=== PATIENT | female | born 1940 | race Caucasian/White ===

== ENCOUNTER → 2016-04-21 | Outpatient (CLI) | payer OTHER ==
[~2016-04-21] MED LIST: ALBUAER INH; ASPI81TA28 PO; GUAI100L PO; MULT-506 PO; SIMV-151 PO; VALA1TAB31 PO
[2016-04-21 11:16] LABS: ESTIMATED AVERAGE GLUCOSE 114 mg/dl; HA1C FLAG Normal (Normal)
[2016-04-21 11:22] LABS: ALT/SGPT 20 U/L (12-78); BLOOD UREA NITROGEN 16 mg/dl (7-18); BUN/CREATININE RATIO 25.1 (10-20); CALCIUM 8.9 mg/dl (8.5-10.1); CARBON DIOXIDE 30 mmol/L (21-32); CHLORIDE 103 mmol/L (98-107); CHOLESTEROL 321 mg/dl (0-200); CREATININE 0.65 mg/dl (0.60-1.20); GLUCOSE 96 mg/dl (70-99); POTASSIUM 4.1 mmol/L (3.5-5.1); SODIUM 138 mmol/L (136-145); TRIGLYCERIDES 388 mg/dl (0-150); VERY LOW DENSITY LIPOPROT CALC 78 mg/dl
[2016-04-21 11:32] LABS: ALKALINE PHOSPHATASE 65 U/L (45-117); AST/SGOT 17 U/L (15-37); CHOLESTEROL/HDL RATIO 7.3; HDL CHOLESTEROL 44 mg/dl; LDL CHOLESTEROL CALCULATED 199 mg/dl
--- NOTE | 2016-04-26 10:36 | CODING QUERY MEDICAL NECESSITY ---
SUPPORTING DIAGNOSIS NEEDED A supporting diagnosis is required for the test/procedure performed on this patient in order for us to be reimbursed by the patient's insurance. Please provide a supporting diagnosis for the following test/procedure listed below next to the test name along with your signature. *If there is no additional diagnosis for this patient that would support the following test/procedure please document that below next to the test/procedure. Test(s)/Procedure(s) that require a supporting diagnosis: DOS 04/21 * Hba1c DIAGNOSIS: * TSH DIAGNOSIS: * Lipids DIAGNOSIS: Provider Signature: Date: Thank you Kath Ruiz Health Information Management Once completed, please kindly fax back to [phone] For questions please call [phone]
== END | disposition home or self-care (01) ==
LOC: C.LABBC 09:53
PROVIDERS: ATTEND Internal Medicine
DX: Z78.0 Asymptomatic menopausal state (principal); R73.03 Prediabetes; E78.5 Hyperlipidemia, unspecified

== ENCOUNTER → 2016-07-20 | Outpatient (CLI) | payer OTHER ==
[2016-07-20 13:55] LABS: CHOLESTEROL/HDL RATIO 4.8
== END | disposition home or self-care (01) ==
LOC: C.LABBC 10:27
PROVIDERS: ATTEND Internal Medicine
DX: E78.5 Hyperlipidemia, unspecified (principal)

== ENCOUNTER → 2016-09-25 | Outpatient (CLI) | payer OTHER | END | disposition home or self-care (01) | LOC: C.MAMM 15:37 | PROVIDERS: ATTEND Internal Medicine | DX: Z00.00 Encounter for general adult medical examination without abnormal findings (principal); M85.852 Other specified disorders of bone density and structure, left thigh ==

== ENCOUNTER → 2016-10-16 | Outpatient (CLI) | payer OTHER ==
--- NOTE | 2016-10-17 16:02 | MAMMOGRAPHY REPORT ---
BILATERAL DIGITAL SCREENING MAMMOGRAM WITH CAD: 10/16/2016 CLINICAL HISTORY: Routine screening. Patient has no complaints. TECHNIQUE: Bilateral CC and MLO views were obtained. Current study was also evaluated with a Compute r Aided Detection (CAD) system. COMPARISON: Comparison is made to exams dated: 11/25/2014 mammogram, 08/19/2013 mammogram, 08/07/2012 m ammogram, 09/28/2010 mammogram, 07/18/2009 mammogram - [facility], and 08/19/2006. BREAST COMPOSITION: The tissue of both breasts is heterogeneously dense, which may obscure small mas ses. FINDINGS: There are a few benign-appearing punctate calcifications in the left breast. No suspicious mass, architectural distortion or cluster of suspicious microcalcifications is seen. IMPRESSION: ACR BI-RADS CATEGORY 2: BENIGN There is no mammographic evidence of malignancy. A 1 year screening mammogram is recommended. The pa tient will receive written notification of the results. Approximately 10% of breast cancers are not detected with mammography. A negative mammographic report should not delay biopsy if a clinically suggestive mass is present. Kami Diaz M.D. ay/:10/16/2016 16:27:06 Machine Maintenance Mechanic: Vanessa CALZADA(R)(M), [facility] letter sent: Normal 1/2 BI-RADS Code: ACR BI-RADS Category 2: Benign
== END | disposition home or self-care (01) ==
LOC: C.MAMM 13:17
PROVIDERS: ATTEND Internal Medicine
DX: Z12.31 Encounter for screening mammogram for malignant neoplasm of breast (principal)

== ENCOUNTER → 2016-12-13 | Outpatient (CLI) | payer OTHER ==
--- NOTE | 2016-12-13 11:41 | DIAGNOSTIC IMAGING REPORT ---
ULTRASOUND EXAM AAA SCREEN CLINICAL HISTORY: 76 years-old Female with Z13.6 Screening for AAA (abdominal aortic aneurysm)[id number]. COMPARISON: None available TECHNIQUE: Multiple real time sonographic images of the abdominal aorta were obtained assessing aranda-scale appearance as well as color. Doppler and spectral waveform analysis. FINDINGS: MEASUREMENTS: Proximal Aorta: 1.8 x 1.8 cm Mid Aorta: 1.3 x 1.3 cm Distal Aorta: 1.4 x 1.47 m Right Common Iliac Artery: 0.7 cm Left Common Iliac Artery: 0.7 cm Pulsatile color Doppler flow and a normal spectral waveform are seen within the proximal aorta. Mild atherosclerotic plaquing of the abdominal aorta and iliac bifurcation. IMPRESSION: Mild atherosclerotic plaquing of the abdominal aorta and common iliac arteries without evidence of aneurysmal dilation. The above report was generated using voice recognition software. It may contain grammatical, syntax or spelling errors. Electronically signed by: Chato Marino M.D. 12/13/2016 11:39 AM Dictated Date/Time: 12/13/2016 11:37 AM
== END | disposition home or self-care (01) ==
LOC: C.ULTRBC 10:59
PROVIDERS: ATTEND Internal Medicine
DX: Z13.6 Encounter for screening for cardiovascular disorders (principal)

== ENCOUNTER → 2017-10-03 | Outpatient (CLI) | payer OTHER ==
[2017-10-03 11:07] LABS: BASO % 0.9 %; BASO ABS # 0.07 K/uL (0-0.2); EOS % 4.2 %; EOS ABS # 0.34 K/uL (0-0.5); HEMOGLOBIN 12.9 g/dL (12.0-16.0); IG# 0.03 K/uL (0.00-0.02); LYMPH % 30.8 %; MEAN CELL VOLUME 91.6 fL (80-100); MEAN CORPUSCULAR HEMOGLOBIN 31.1 pg (25-34); MEAN CORPUSCULAR HGB CONC 33.9 g/dl (32-36); MEAN PLATELET VOLUME 9.4 fL (7.4-10.4); MONO % 8.3 %; MONO ABS # 0.67 K/uL (0.11-0.59); NEUT % 55.4 %; NEUT ABS # 4.51 K/uL (1.4-6.5); PLATELET COUNT 324 K/uL (130-400); RED CELL DISTRIBUTION WIDTH CV 13.3 % (11.5-14.5); RED CELL DISTRIBUTION WIDTH SD 44.8 fL (36.4-46.3); WHITE BLOOD COUNT 8.12 K/uL (4.8-10.8)
[2017-10-03 11:39] LABS: ALBUMIN 3.7 gm/dl (3.4-5.0); ALKALINE PHOSPHATASE 63 U/L (45-117); ALT/SGPT 26 U/L (12-78); AST/SGOT 21 U/L (15-37); BLOOD UREA NITROGEN 24 mg/dl (7-18); CARBON DIOXIDE 26 mmol/L (21-32); CREATININE 0.82 mg/dl (0.60-1.20); GLUCOSE 105 mg/dl (70-99); POTASSIUM 4.1 mmol/L (3.5-5.1); SODIUM 140 mmol/L (136-145); TOTAL PROTEIN 7.2 gm/dl (6.4-8.2)
[2017-10-03 11:42] LABS: HEMOGLOBIN A1C 5.9 % (4.5-5.6)
== END | disposition home or self-care (01) ==
LOC: C.LABBC 07:34
PROVIDERS: ATTEND Internal Medicine
DX: E78.5 Hyperlipidemia, unspecified (principal); Z00.00 Encounter for general adult medical examination without abnormal findings; Z90.49 Acquired absence of other specified parts of digestive tract; R73.03 Prediabetes

== ENCOUNTER 2022-07-07 17:07 | Inpatient (IN) ==
[2022-07-07] MEDS ORDERED: ONDANSETRON INJ 2 MG/ML 2 ML VIAL IV STA (17:20)
[2022-07-07] MEDS ORDERED: SODIUM CHLORIDE 0.9% 500 ML IV SCH (17:30)
[2022-07-07] MEDS ORDERED: SODIUM CHLORIDE 0.9% 1000ML 1,000 ML IV ONE (17:30)
[2022-07-07] MEDS ORDERED: KETOROLAC TROMETHAMINE 15 MG/ML VIAL IV STA (17:30)
--- NOTE | 2022-07-07 18:01 | Emergency Department Note ---
History of Present Illness General Chief complaint: Vomiting Stated complaint: VOMITING, DIAARHEA, DEHYDRATION Time Seen by Provider: 07/07/22 17:20 History of Present Illness Provider Complaint: + nausea, + vomiting, + diarrhea and + abdominal pain Onset (ago): day(s) 1 Description of Vomiting: + watery; no blood-streaked, no bloody or no coffee grounds Description of Diarrhea: no tarry, no blood-streaked or no bloody (bright red) Associated Abdominal Pain: Yes Location of pain: + epigastric Severity: moderate Maximum Pain Intensity: 7 Current Pain Intensity: 7 Quality: + stabbing, + aching, + sharp and + dull Pain Consistency: + constant Relieved By: + none Exacerbated By: + eating Context: + history of abdominal surgery; no foreign travel, no possible food poisoning, no recent antibiotic use, no recent surgery/procedure, no alcohol abuse, no trauma, no smoking or no marijuana use Associated symptoms: no chest pain, no cough, no fever/chills, no headaches, no rash or no dysuria Home Medications Medication Instructions Recorded Confirmed Type calcium carbonate 600 mg-vitamin 1 tab PO QAM 09/04/18 07/07/22 History D3 5 mcg (200 unit) tablet multivitamin (One-A-Day Essential 1 tab PO PM 09/04/18 07/07/22 History tablet) aspirin 81 mg tablet,delayed 81 mg PO QAM 03/24/19 07/07/22 History release (Aspir-) triamcinolone acetonide 0.1 % 1 applic topical BID PRN Itching 09/14/21 07/07/22 History topical cream levothyroxine 25 mcg tablet 25 mcg PO QAM #90 tabs 02/20/22 07/07/22 Rx rosuvastatin 10 mg tablet 10 mg PO HS #90 tabs 06/28/22 07/07/22 Rx gabapentin 100 mg capsule 100 mg PO DAILY 07/06/22 07/07/22 History Allergies Allergy/AdvReac Type Severity Reaction Status Date / Time Penicillins Allergy Severe FEET Verified 07/07/22 18:49 SWELLED HAD TO BE CARRIED shellfish derived Allergy Severe Gastrointestinal Unverified 07/07/22 18:49 Upset bacitracin Allergy Intermediate TOTAL BODY Verified 07/07/22 18:49 RASH/SWELLING benzocaine Allergy Intermediate Rash Verified 07/07/22 18:49 clindamycin Allergy Intermediate RASH Verified 07/07/22 18:49 cobalt Allergy Intermediate TOTAL BODY Verified 07/07/22 18:49 RASH/SWELLING ethylenediamine Allergy Intermediate Rash Verified 07/07/22 18:49 hydrocortisone Allergy Intermediate TOTAL BODY Verified 07/07/22 18:49 RASH/SWELLING methylprednisolone Allergy Intermediate Rash Verified 07/07/22 18:49 neomycin Allergy Intermediate TOTAL BODY Verified 07/07/22 18:49 RASH/SWELLING oxycodone Allergy Intermediate Rash Verified 07/07/22 18:49 prednisolone Allergy Intermediate Rash Verified 07/07/22 18:49 tixocortol Allergy Intermediate TOTAL BODY Verified 07/07/22 18:49 RASH/SWELLING formaldehyde Allergy Unknown Unknown Verified 07/07/22 18:49 metronidazole Allergy Unknown Gastrointestinal Verified 07/07/22 18:49 Upset ciprofloxacin [From Cipro] AdvReac Mild rash Verified 07/07/22 18:49 Past Med/Surg History Medical History Acute bronchitis resolved 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> then SBO> resolved Endometrial hyperplasia Endometrial thickening on ultrasound GERD (gastroesophageal reflux disease) Herpes zoster Hx of rotator cuff tear right Hyperlipidemia Hypothyroidism Pneumonia resolved Postmenopausal Postmenopausal bleeding Pre-diabetes Sinus bradycardia pt unaware > no cardiology Surgical History History of appendectomy History of delivery x2 History of cholecystectomy History of colonoscopy History of endometrial ablation History of hip replacement Right FREDDY (2007/[facility] post-operatively patient reports diffuse rash/itching on post-op day#3, suspected to be contact dermatitis from the bedsheets per discharge summary (given benadryl)- 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 Wilda Jaeger History of resection of small bowel History of tonsillectomy Family History Mother Depression Other Myocardial infarction Stroke Denies family history of Ovarian cancer Prostate cancer Diabetes Breast cancer Lung cancer Colorectal cancer Hypertension Social History Smoking Status: Never smoker Second Hand Exposure: No; Do You Dip or Chew Tobacco: No; Hx Alcohol Use: No Hx Substance Use: No Preferred Language: [place] Citizen Communication Ability: Effective Visual Impairment: Limited Hearing Ability: Normal Min[employer] Processing Labourer Required: No Beliefs That Will Affect Care: None marital status: Current Living Situation: Spouse current occupational status: employed current occupation: realtor How many Children do You have: 2 Feels Safe at Home: Yes Childhood Exposure to Second-Hand Smoke: Yes caffeine: Yes (drinks tea ) Dental Care, Regularly: Yes Physical Activity Frequency: 3-4 Times per Week Seatbelt Use: always Sunscreen Use: Yes (tries to ) Assistive Devices: Glasses Physical Exam Vital Signs: Vital Signs - 24 hr 07/07/22 17:11 07/07/22 17:28 07/07/22 17:55 Temperature 36.8 C Temperature Source Temporal Artery Sc an Pulse Rate 63 51 L Pulse Rate from Sp O2 Sensor Respiratory Rate 20 Respiratory Depth Normal Blood Pressure 163/71 H Blood Pressure Laura n 101 Pulse Oximetry 96 Oxygen Delivery Me thod Room Air Room Air Sepsis Recent Feve r Within 48 Hours No Sepsis New/Unexpla ined Change in Men asad Status N/A Sepsis Action Take n by Nursing No Action Required 07/07/22 18:00 07/07/22 19:44 07/07/22 20:00 Temperature Temperature Source Pulse Rate 62 54 L 56 L Pulse Rate from Sp O2 Sensor 52 L 55 L Respiratory Rate 19 23 23 Respiratory Depth Blood Pressure 176/72 H 145/77 H 151/58 H Blood Pressure Laura n 106 99 89 Pulse Oximetry 97 96 97 Oxygen Delivery Me thod Room Air Room Air Room Air Sepsis Recent Feve r Within 48 Hours Sepsis New/Unexpla ined Change in Men asad Status Sepsis Action Take n by Nursing Physical Exam: Physical Exam GENERAL: She is oriented to person, place, and time. She appears well-developed and well-nourished. HENT: Exam performed. -Head: Normocephalic and atraumatic. -Right Ear: External ear normal. No mastoid erythema -Left Ear: External ear normal. No mastoid erythema EYES: Conjunctivae and EOM are normal. Right eye exhibits no discharge. Left eye exhibits no discharge. No scleral icterus. NECK: Normal range of motion. Neck supple. No JVD present. No spinous process tenderness present. No tracheal deviation and normal range of motion present. CV: Normal rate, regular rhythm, normal heart sounds and intact distal pulses. There is no peripheral edema. Palpable radial pulses bue. PULM/CHEST: Effort normal and breath sounds normal. No respiratory distress. No stridor. She has no wheezes. She has no rales. ABD: The abdomen is soft. There is tenderness to palpation of the epigastric area. There is no rebound, no guarding. MUSC/SKEL: Normal range of motion. There is no peripheral edema, tenderness or deformity. LYMPH: No cervical adenopathy. NEURO: She is alert and oriented to person, place, and time. She has normal strength. No cranial nerve deficit or sensory deficit. Coordination and gait normal. GCS eye subscore is 4. GCS verbal subscore is 5. GCS motor subscore is 6. Cerebellar tests wnl. SKIN: Skin is warm and dry. She is not diaphoretic. PSYCH: She has a normal mood and affect. Behavior is normal. Judgment and thought content normal. Course Course 1719: The patient was evaluated in room A3. A complete history and physical exam was performed Cardiac monitoring: An order was placed for continuous cardiac monitoring. The monitor shows a rate of 60 with sinus rhythm interpreted by me 191: Vital signs stable. Labs show leukocytosis of 13.7 up from 11.07 yesterday. Creatinine today is 2.16 up from 0.72 yesterday. Patient treated with IV fluids. Given the patient's significant acute kidney injury, the patient had a CT scan done without contrast. CT without contrast showed diverticulitis with no abscess or perforation. Patient will be treated with Invanz given her extensive allergy list antibiotics. Patient will be [facility]ist team Dr. Pedraza's team notified. Administered Medications Ertapenem 1,000 mg/ Syringe 10 mls @ 2 mls/min IV Q24H CHANO Stop: 07/17/22 19:14 Last Admin: 07/07/22 19:45 Dose: 2 mls/min Documented By: LEILANI Discontinued Medications Sodium Chloride (Nss 1000ml) 1,000 mls @ 999 mls/hr IV .Q1H1M ONE Stop: 07/07/22 18:30 Last Infusion: 07/07/22 18:34 Dose: 0 mls/hr Documented By: Admin: 07/07/22 17:49 Dose: 999 mls/hr Documented By: REA Ketorolac Tromethamine (Ketorolac Tromethamine 15 Mg/Ml Vial) 15 mg IV NOW STA Stop: 07/07/22 17:31 Last Admin: 07/07/22 17:49 Dose: 15 mg Documented By: REA Ondansetron HCl (Ondansetron Inj 2 Mg/Ml 2 Ml Vial) 4 mg IV NOW STA Stop: 07/07/22 17:21 Last Admin: 07/07/22 17:49 Dose: 4 mg Documented By: REA Medical Decision Making Laboratory Data Attestation: I reviewed the patient's lab results. 07/07/22 17:48 07/07/22 17:48 Lab Results 07/07/22 07/07/22 07/07/22 Range/Units 17:48 17:48 17:48 WBC 13.73 H (4.8-10.8) K/ul RBC 4.62 (4.20-5.40) M/uL Hgb 13.9 (12.0-16.0) g/dl Hct 40.9 (37.0-47.0) % MCV 88.5 (80.0-100.0) fL MCH 30.1 (25.0-34.0) pg MCHC 34.0 (32.0-36.0) g/dL RDW Std Deviation 42.5 (36.4-46.3) fL RDW Coeff of Eduard 13.2 (11.5-14.5) % Plt Count 343 (130-400) K/uL MPV 8.9 L (9.4-12.4) fL Immature Gran % (Auto) 1.9 % Neut % (Auto) 72.9 % Lymph % (Auto) 12.1 % [place] % (Auto) 11.7 % Eos % (Auto) 0.9 % Baso % (Auto) 0.5 % Neut # (Auto) 10.01 H (1.40-6.50) K/uL Lymph # (Auto) 1.66 (1.2-3.4) K/uL [place] # (Auto) 1.61 H (0.11-0.59) K/uL Eos # (Auto) 0.12 (0-0.50) K/uL Baso # (Auto) 0.07 (0-0.2) K/uL Immature Gran # (Auto) 0.26 H (0.01-0.20) K/uL PT 10.6 (9.0-12.0) Seconds INR 1.0 (0.9-1.1) APTT 23.9 (21.0-31.0) Seconds PTT Ratio 0.8 Sodium 137 (136-145) mmol/L Potassium 3.9 (3.5-5.1) mmol/L Chloride 100 (98-107) mmol/L Carbon Dioxide 28 (21-32) mmol/L Anion Gap 9 (3-11) BUN 28 H (6-23) mg/dl Creatinine 2.16 H D (0.6-1.2) mg/dl Est Cr Clr Drug Dosing 15.0 ml/min Est GFR ( Amer) 24.5 ml/min Est GFR (Non-Af Amer) 21.1 ml/min BUN/Creatinine Ratio 13.0 (10-20) Glucose 90 (70-99(Fasting)) mg/dl Calcium 9.8 (8.6-10.3) mg/dl Magnesium 2.2 (1.7-2.4) mg/dl Total Bilirubin 0.7 (0.2-1.0) mg/dl Direct Bilirubin TNP AST 43 H (13-39) U/L ALT 32 (7-52) U/L Alkaline Phosphatase 83 (34-104) U/L Total Protein 8.0 (6.0-8.3) gm/dl Albumin 4.4 (3.4-5.0) gm/dl Lipase 54 (11-82) U/L Urine Color Urine Appearance (Clear) Urine pH (4.5-7.5) Ur Specific [place] (1.000-1.030) Urine Protein (Negative) Urine Glucose (UA) (Negative) Urine Ketones (Negative) Urine Blood (Negative) Urine Nitrite (Negative) Urine Bilirubin (Negative) Urine Urobilinogen (Negative) Ur Leukocyte Esterase (Negative) Urine WBC (Auto) (0-5) /hpf Urine RBC (Auto) (0-4) /hpf U Hyaline Cast (Auto) (0-5) /lpf U Epithel Cells (Auto) (0-5) /lpf Urine Bacteria (Auto) (Negative) Ur Renal Epithelial Cell (0-5) /lpf SARS-CoV-2, RNA, NAAT (NEGATIVE) 07/07/22 07/07/22 Range/Units 17:59 19:31 WBC (4.8-10.8) K/ul RBC (4.20-5.40) M/uL Hgb (12.0-16.0) g/dl Hct (37.0-47.0) % MCV (80.0-100.0) fL MCH (25.0-34.0) pg MCHC (32.0-36.0) g/dL RDW Std Deviation (36.4-46.3) fL RDW Coeff of Eduard (11.5-14.5) % Plt Count (130-400) K/uL MPV (9.4-12.4) fL Immature Gran % (Auto) % Neut % (Auto) % Lymph % (Auto) % [place] % (Auto) % Eos % (Auto) % Baso % (Auto) % Neut # (Auto) (1.40-6.50) K/uL Lymph # (Auto) (1.2-3.4) K/uL [place] # (Auto) (0.11-0.59) K/uL Eos # (Auto) (0-0.50) K/uL Baso # (Auto) (0-0.2) K/uL Immature Gran # (Auto) (0.01-0.20) K/uL PT (9.0-12.0) Seconds INR (0.9-1.1) APTT (21.0-31.0) Seconds PTT Ratio Sodium (136-145) mmol/L Potassium (3.5-5.1) mmol/L Chloride (98-107) mmol/L Carbon Dioxide (21-32) mmol/L Anion Gap (3-11) BUN (6-23) mg/dl Creatinine (0.6-1.2) mg/dl Est Cr Clr Drug Dosing ml/min Est GFR ( Amer) ml/min Est GFR (Non-Af Amer) ml/min BUN/Creatinine Ratio (10-20) Glucose (70-99(Fasting)) mg/dl Calcium (8.6-10.3) mg/dl Magnesium (1.7-2.4) mg/dl Total Bilirubin (0.2-1.0) mg/dl Direct Bilirubin AST (13-39) U/L ALT (7-52) U/L Alkaline Phosphatase (34-104) U/L Total Protein (6.0-8.3) gm/dl Albumin (3.4-5.0) gm/dl Lipase (11-82) U/L Urine Color Yellow Urine Appearance Cloudy A (Clear) Urine pH 6.5 (4.5-7.5) Ur Specific [place] 1.007 (1.000-1.030) Urine Protein 3+ H (Negative) Urine Glucose (UA) Negative (Negative) Urine Ketones Negative (Negative) Urine Blood 2+ H (Negative) Urine Nitrite Negative (Negative) Urine Bilirubin Negative (Negative) Urine Urobilinogen Negative (Negative) Ur Leukocyte Esterase Trace H (Negative) Urine WBC (Auto) 10-30 H (0-5) /hpf Urine RBC (Auto) 0-4 (0-4) /hpf U Hyaline Cast (Auto) 5-10 H (0-5) /lpf U Epithel Cells (Auto) >30 H (0-5) /lpf Urine Bacteria (Auto) Negative (Negative) Ur Renal Epithelial Cell 0-5 (0-5) /lpf SARS-CoV-2, RNA, NAAT NEGATIVE (NEGATIVE) Imaging Data Radiologist's Impression: Abdomen/Pelvis CT 07/07/22 18:28 CT abd pelvis wo con CLINICAL HISTORY: epigastric pain TECHNIQUE: Helical axial images of the abdomen and pelvis were obtained. Automated dose lowering techniques and/or adjustment according to patient size were utilized for this exam. This exam was performed without intravenous contrast. CT DOSE: 754.16 mGy.cm COMPARISON: None available at the time of this dictation. FINDINGS: Lower chest: No acute abnormality. Liver: Hepatic steatosis is noted. Gallbladder and biliary tree: Patient is status post cholecystectomy. Physiologic prominence of the biliary ducts is noted. Pancreas: Unremarkable, no focal lesions. Spleen: Splenule is incidentally noted. Adrenals: Unremarkable. Kidneys and ureters: Unremarkable. Bladder: Unremarkable. Reproductive organs: Unremarkable. Bowel: Numerous diverticula are seen. There is fat stranding in the proximal sigmoid colon. Patient is status post partial colectomy. The appendix is sunil gically absent. Immediately small hiatal hernia. Lymph nodes Retroperitoneal: Unremarkable. Pelvic: Unremarkable. Mesenteric: Unremarkable. Peritoneum: Fat stranding is seen in the left lower quadrant. No pneumoperitoneum is seen. No fluid collections are seen to stress abscess. Vessels: Unremarkable. Abdominal wall: Bilateral fat-containing inguinal hernias are seen. An infraumbilical fat-containing hernia is seen. Bones: Right hip total arthroplasty is seen. Degenerative changes are seen in the spine. IMPRESSION: 1. Findings compatible with mild diverticulitis without abscess or perforation. 2. Hepatic steatosis. 3. Additional findings as above. ACT 112: Negative or not required by law. Electronically signed by: Dashawn Teran M.D. 07/07/2022 7:03 PM ECG Data Attestation: I personally reviewed and interpreted this ECG as follows: Indication: abdominal pain Rate (beats per minute): 55 Rhythm: normal sinus Findings: no ST depression, no ST elevation or no prolonged QT MDM Narrative 1720: The patient was evaluated in room A3. A complete history and physical exam was performed Cardiac monitoring: An order was placed for continuous cardiac monitoring. The monitor shows a rate of 60 with sinus rhythm interpreted by me 1915: Vital signs stable. Labs show leukocytosis of 13.7 up from 11.07 yesterday. Creatinine today is 2.16 up from 0.72 yesterday. Patient treated with IV fluids. Given the patient's significant acute kidney injury, the patient had a CT scan done without contrast. CT without contrast showed diverticulitis with no abscess or perforation. Patient will be treated with Invanz given her extensive allergy list antibiotics. Patient will be admitted to the [facility] hospitalist team Dr. Pedraza's team notified. Impression & Plan Diverticulitis, THA (acute kidney injury) Discharge Plan Visit Data Chief Complaint: Vomiting Stated Complaint: VOMITING, DIAARHEA, DEHYDRATION ED Provider: Keegan Persaud Discharge Problem: Diverticulitis, THA (acute kidney injury) Patient Disposition: Admitted As Inpatient Forms Stand Alone Forms: My [facility] Prescriptions Prescriptions: No Action levothyroxine 25 mcg tablet 25 mcg PO QAM Qty: 90 2RF rosuvastatin 10 mg tablet 10 mg PO HS Qty: 90 3RF gabapentin 100 mg capsule 100 mg PO DAILY calcium carbonate-vitamin D3 600 mg(1,500mg) -200 unit tablet 1 tab PO QAM multivitamin [One-A-Day Essential] tablet 1 tab PO PM triamcinolone acetonide 0.1 % cream 1 applic topical BID PRN (Reason: Itching) aspirin [Aspir-81] 81 mg Tablet,Delayed Release (Dr/Ec) 81 mg PO QAM Referrals Referrals: Jesse Hood CRNP [Primary Care Provider] -
[2022-07-07 18:03] LABS: Basophils # (auto) 0.07 K/uL (0-0.2); Basophils % (auto) 0.5 %; Eosinophils # (auto) 0.12 K/uL (0-0.50); Eosinophils % (auto) 0.9 %; Hematocrit (blood only) 40.9 % (37.0-47.0); Hemoglobin 13.9 g/dl (12.0-16.0); Immature Granulocytes # (auto) 0.26 K/uL (0.01-0.20); Immature Granulocytes % (auto) 1.9 %; Lymphocytes # (auto) 1.66 K/uL (1.2-3.4); Lymphocytes % (auto) 12.1 %; Mean Corpuscular Hemoglobin 30.1 pg (25.0-34.0); Mean Corpuscular Volume 88.5 fL (80.0-100.0); Mean Platelet Volume 8.9 fL (9.4-12.4); Monocytes # (auto) 1.61 K/uL (0.11-0.59); Monocytes % (auto) 11.7 %; Neutrophils # (auto) 10.01 K/uL (1.40-6.50); Neutrophils % (auto) 72.9 %; Platelet Count 343 K/uL (130-400); RDW Coefficient of Variation 13.2 % (11.5-14.5); RDW Standard Deviation 42.5 fL (36.4-46.3); Red Blood Count 4.62 M/uL (4.20-5.40); White Blood Count 13.73 K/ul (4.8-10.8)
[2022-07-07 18:06] LABS: Appearance Urine Cloudy (Clear); Bacteria Urine Automated Negative (Negative); Bilirubin Urine Negative (Negative); Blood Urine 2+ (Negative); Color Urine Yellow; Epithelial Cell Urine Auto >30 /lpf (0-5); Glucose Urine UA Negative (Negative); Ketones Urine Negative (Negative); Leukocyte Esterase Urine Trace (Negative); Nitrite Urine Negative (Negative); Protein Urine 3+ (Negative); RBC Urine Automated 0-4 /hpf (0-4); Specific Gravity Urine 1.007 (1.000-1.030); Urobilinogen Urine Negative (Negative); pH Urine 6.5 (4.5-7.5)
[2022-07-07 18:26] LABS: Alanine Aminotransferase 32 U/L (7-52); Albumin Level 4.4 gm/dl (3.4-5.0); Alkaline Phosphatase 83 U/L (34-104); Anion Gap 9 (3-11); Aspartate Aminotransferase 43 U/L (13-39); Bilirubin,Total 0.7 mg/dl (0.2-1.0); Blood Urea Nitrogen 28 mg/dl (6-23); Calcium 9.8 mg/dl (8.6-10.3); Carbon Dioxide 28 mmol/L (21-32); Chloride 100 mmol/L (98-107); Est GFR (African American) 24.5 ml/min; Est GFR (Non-African American) 21.1 ml/min; Glucose 90 mg/dl (70-99(Fasting)); Lipase 54 U/L (11-82); Magnesium 2.2 mg/dl (1.7-2.4); Potassium 3.9 mmol/L (3.5-5.1); Sodium 137 mmol/L (136-145)
[2022-07-07 18:27] LABS: Renal Epithelial Cells Urine 0-5 /lpf (0-5)
[2022-07-07 18:28] LABS: Partial Thromboplastin Ratio 0.8; Partial Thromboplastin Time 23.9 Seconds (21.0-31.0); Prothrombin Time 10.6 Seconds (9.0-12.0)
--- NOTE | 2022-07-07 19:05 | CT Scan Report ---
CT abd pelvis wo con CLINICAL HISTORY: epigastric pain TECHNIQUE: Helical axial images of the abdomen and pelvis were obtained. Automated dose lowering tech niques and/or adjustment according to patient size were utilized for this exam. This exam was perfor med without intravenous contrast. CT DOSE: 754.16 mGy.cm COMPARISON: None available at the time of this dictation. FINDINGS: Lower chest: No acute abnormality. Liver: Hepatic steatosis is noted. Gallbladder and biliary tree: Patient is status post cholecystectomy. Physiologic prominence of the b iliary ducts is noted. Pancreas: Unremarkable, no focal lesions. Spleen: Splenule is incidentally noted. Adrenals: Unremarkable. Kidneys and ureters: Unremarkable. Bladder: Unremarkable. Reproductive organs: Unremarkable. Bowel: Numerous diverticula are seen. There is fat stranding in the proximal sigmoid colon. Patient i s status post partial colectomy. The appendix is surgically absent. Immediately small hiatal hernia. Lymph nodes Retroperitoneal: Unremarkable. Pelvic: Unremarkable. Mesenteric: Unremarkable. Peritoneum: Fat stranding is seen in the left lower quadrant. No pneumoperitoneum is seen. No fluid c ollections are seen to stress abscess. Vessels: Unremarkable. Abdominal wall: Bilateral fat-containing inguinal hernias are seen. An infraumbilical fat-containing hernia is seen. Bones: Right hip total arthroplasty is seen. Degenerative changes are seen in the spine. IMPRESSION: 1. Findings compatible with mild diverticulitis without abscess or perforation. 2. Hepatic steatosis. 3. Additional findings as above. ACT 112: Negative or not required by law. Electronically signed by: Dashawn Teran M.D. 07/07/2022 7:03 PM
[2022-07-07] MEDS ORDERED: ERTAPENEM SODIUM 1,000 MG in SYRINGE 0 ML IV SCH (19:15)
--- NOTE | 2022-07-07 20:19 | History & Physical Report ---
Date of Service July 07, 2022 Assessment & Plan (1) Salmonella food poisoning: (2) Salmonella gastroenteritis: (3) Diverticulitis: (4) THA (acute kidney injury): (5) Anxiety: (6) GERD (gastroesophageal reflux disease): (7) Hyperlipidemia: (8) Hypothyroidism: Plan Salmonella food poisoning/gastroenteritis- Due to patient's age, she is at increased risk for complications of untreated Salmonella. She is allergic to penicillins, clindamycin, ciprofloxacin, metronidazole. We will continue ertapenem IV 5 mg every 24 hours Acute kidney injury- Creatinine 2.16 upon admission, with base 0.72 Patient's received 1500 mils of normal saline in ED, and will continue IV fluids at 100 mils per hour Repeat laboratories in a.m. Patient will otherwise be kept NPO, and hold medications for hypothyroidism, peripheral neuropathy and hyperlipidemia History of Present Illness Chief Complaint: The patient presents to the emergency department with the development of nausea, vomiting, diarrhea and generalized abdominal pain, with symptoms of diet dehydration, shortly after eating tacos and some form of peanut butter out of town on Saturday, 07/02 Primary Care Provider: JOSE L Hare The patient is a 81-year-old female with a past medical history including anxiety, endometrial hyperplasia, GERD, osteopenia of menopause, sinus bradycardia, prediabetes, hypothyroidism, hyperlipidemia and dermatitis. Patient reports the emergency department with symptoms as noted above. I suggested to her that her symptoms are classic for food poisoning, and stool PCR later on admission is positive for Salmonella. The patient did already receive ertapenem 1 g IV from the ED. Allergies Allergy/AdvReac Type Severity Reaction Status Date / Time Penicillins Allergy Severe FEET Verified 07/07/22 18:49 SWELLED HAD TO BE CARRIED shellfish derived Allergy Severe Gastrointestinal Unverified 07/07/22 18:49 Upset bacitracin Allergy Intermediate TOTAL BODY Verified 07/07/22 18:49 RASH/SWELLING benzocaine Allergy Intermediate Rash Verified 07/07/22 18:49 clindamycin Allergy Intermediate RASH Verified 07/07/22 18:49 cobalt Allergy Intermediate TOTAL BODY Verified 07/07/22 18:49 RASH/SWELLING ethylenediamine Allergy Intermediate Rash Verified 07/07/22 18:49 hydrocortisone Allergy Intermediate TOTAL BODY Verified 07/07/22 18:49 RASH/SWELLING methylprednisolone Allergy Intermediate Rash Verified 07/07/22 18:49 neomycin Allergy Intermediate TOTAL BODY Verified 07/07/22 18:49 RASH/SWELLING oxycodone Allergy Intermediate Rash Verified 07/07/22 18:49 prednisolone Allergy Intermediate Rash Verified 07/07/22 18:49 tixocortol Allergy Intermediate TOTAL BODY Verified 07/07/22 18:49 RASH/SWELLING formaldehyde Allergy Unknown Unknown Verified 07/07/22 18:49 metronidazole Allergy Unknown Gastrointestinal Verified 07/07/22 18:49 Upset ciprofloxacin [From Cipro] AdvReac Mild rash Verified 07/07/22 18:49 Home Medications Medication Instructions Recorded Confirmed Type calcium carbonate 600 mg-vitamin 1 tab PO QAM 09/04/18 07/07/22 History D3 5 mcg (200 unit) tablet multivitamin (One-A-Day Essential 1 tab PO PM 09/04/18 07/07/22 History tablet) aspirin 81 mg tablet,delayed 81 mg PO QAM 03/24/19 07/07/22 History release (Aspir-) triamcinolone acetonide 0.1 % 1 applic topical BID PRN Itching 09/14/21 07/07/22 History topical cream levothyroxine 25 mcg tablet 25 mcg PO QAM #90 tabs 02/20/22 07/07/22 Rx rosuvastatin 10 mg tablet 10 mg PO HS #90 tabs 06/28/22 07/07/22 Rx gabapentin 100 mg capsule 100 mg PO DAILY 07/06/22 07/07/22 History Past Med/Surg History Medical History Acute bronchitis resolved 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> then SBO> resolved Endometrial hyperplasia Endometrial thickening on ultrasound GERD (gastroesophageal reflux disease) Herpes zoster Hx of rotator cuff tear right Hyperlipidemia Hypothyroidism Pneumonia resolved Postmenopausal Postmenopausal bleeding Pre-diabetes Sinus bradycardia pt unaware > no cardiology Surgical History History of appendectomy History of delivery x2 History of cholecystectomy History of colonoscopy History of endometrial ablation History of hip replacement Right FREDDY (2007/[facility]): post-operatively patient reports diffuse rash/itching on post-op day#3, suspected to be contact dermatitis from the bedsheets per discharge summary (given benadryl)- 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 History of resection of small bowel History of tonsillectomy Family History Mother Depression Other Myocardial infarction Stroke Denies family history of Ovarian cancer Prostate cancer Diabetes Breast cancer Lung cancer Colorectal cancer Hypertension Social History Smoking Status: Never smoker Second Hand Exposure: No; Do You Dip or Chew Tobacco: No; Hx Alcohol Use: No Hx Substance Use: No Preferred Language: Korean Communication Ability: Effective Visual Impairment: Limited Hearing Ability: Normal Voice Professor Required: No Beliefs That Will Affect Care: None marital status: Current Living Situation: Spouse current occupational status: employed current occupation: realtor How many Children do You have: 2 Feels Safe at Home: Yes Safety Concerns: Feels Safe At This Time Childhood Exposure to Second-Hand Smoke: Yes caffeine: Yes (drinks tea ) Dental Care, Regularly: Yes Physical Activity Frequency: 3-4 Times per Week Seatbelt Use: always Sunscreen Use: Yes (tries to ) Assistive Devices: None Review of Systems Review of Systems: The patient denies chest pain, palpitations, shortness of breath, dyspnea on exertion, cough, lower extremity swelling, sore throat, blood in urine or stool, dysuria, urinary frequency or urgency, lightheadedness, dizziness, headache, memory loss, loss of consciousness, rash, abnormal bruising or bleeding, imbalance, focal or generalized weakness, numbness or tingling in arms or legs, generalized arthralgias or myalgias, back or neck pain, or night sweats. The review of systems is otherwise negative other than for that already noted above, and at least 10 systems have been reviewed. Physical Exam Physical Exam: The patient is awake, alert and oriented 3, well developed and well nourished, normocephalic and atraumatic, lying in bed and in no acute distress. HEENT--PERRL, EOMI, mucous membranes and oropharynx dry. Neck--supple. No JVD. No bruits. Thyroid normal, trachea midline, no adenopathy. Heart--normal S1 and S2. No murmurs, rubs or gallops. Lungs--clear bilaterally, no respiratory distress, no accessory muscle use. Abdomen--generalized mild tenderness. Nondistended, no hernias or masses, no organomegaly. Extremities--no cyanosis or clubbing. No edema. Dermatologic--normal skin turgor, normal color, no abnormal lymph nodes, no rash. Neurologic--cranial nerves II through XII grossly intact. Rheumatologic--normal range of motion. Psychiatric--normal affect. Results & Data Results & Data Vital Signs (Past 12 Hours) Vital Signs Temp Pulse Resp BP Pulse Ox O2 Del Method 07/07/22 20:00 56 L 23 151/58 H 97 Room Air 07/07/22 19:44 54 L 23 145/77 H 96 Room Air 07/07/22 18:00 62 19 176/72 H 97 Room Air 07/07/22 17:55 51 L 07/07/22 17:28 Room Air 07/07/22 17:11 36.8 C 63 20 163/71 H 96 Room Air Laboratory Results Laboratory Results WBC 13.73 K/ul (4.8-10.8) H 07/07/22 17:48 RBC 4.62 M/uL (4.20-5.40) 07/07/22 17:48 Hgb 13.9 g/dl (12.0-16.0) 07/07/22 17:48 Hct 40.9 % (37.0-47.0) 07/07/22 17:48 MCV 88.5 fL (80.0-100.0) 07/07/22 17:48 MCH 30.1 pg (25.0-34.0) 07/07/22 17:48 MCHC 34.0 g/dL (32.0-36.0) 07/07/22 17:48 RDW Std Deviation 42.5 fL (36.4-46.3) 07/07/22 17:48 RDW Coeff of Eduard 13.2 % (11.5-14.5) 07/07/22 17:48 Plt Count 343 K/uL (130-400) 07/07/22 17:48 MPV 8.9 fL (9.4-12.4) L 07/07/22 17:48 Immature Gran % (Auto) 1.9 % 07/07/22 17:48 Neut % (Auto) 72.9 % 07/07/22 17:48 Lymph % (Auto) 12.1 % 07/07/22 17:48 [place] % (Auto) 11.7 % 07/07/22 17:48 Eos % (Auto) 0.9 % 07/07/22 17:48 Baso % (Auto) 0.5 % 07/07/22 17:48 Neut # (Auto) 10.01 K/uL (1.40-6.50) H 07/07/22 17:48 Lymph # (Auto) 1.66 K/uL (1.2-3.4) 07/07/22 17:48 [place] # (Auto) 1.61 K/uL (0.11-0.59) H 07/07/22 17:48 Eos # (Auto) 0.12 K/uL (0-0.50) 07/07/22 17:48 Baso # (Auto) 0.07 K/uL (0-0.2) 07/07/22 17:48 Immature Gran # (Auto) 0.26 K/uL (0.01-0.20) H 07/07/22 17:48 PT 10.6 Seconds (9.0-12.0) 07/07/22 17:48 INR 1.0 (0.9-1.1) 07/07/22 17:48 APTT 23.9 Seconds (21.0-31.0) 07/07/22 17:48 PTT Ratio 0.8 07/07/22 17:48 Sodium 137 mmol/L (136-145) 07/07/22 17:48 Potassium 3.9 mmol/L (3.5-5.1) 07/07/22 17:48 Chloride 100 mmol/L (98-107) 07/07/22 17:48 Carbon Dioxide 28 mmol/L (21-32) 07/07/22 17:48 Anion Gap 9 (3-11) 07/07/22 17:48 BUN 28 mg/dl (6-23) H 07/07/22 17:48 Creatinine 2.16 mg/dl (0.6-1.2) H D 07/07/22 17:48 Est Cr Clr Drug Dosing 15.0 ml/min 07/07/22 17:48 Est GFR ( Amer) 24.5 ml/min 07/07/22 17:48 Est GFR (Non-Af Amer) 21.1 ml/min 07/07/22 17:48 BUN/Creatinine Ratio 13.0 (10-20) 07/07/22 17:48 Glucose 90 mg/dl (70-99(Fasting)) 07/07/22 17:48 Calcium 9.8 mg/dl (8.6-10.3) 07/07/22 17:48 Magnesium 2.2 mg/dl (1.7-2.4) 07/07/22 17:48 Total Bilirubin 0.7 mg/dl (0.2-1.0) 07/07/22 17:48 Direct Bilirubin TNP 07/07/22 17:48 AST 43 U/L (13-39) H 07/07/22 17:48 ALT 32 U/L (7-52) 07/07/22 17:48 Alkaline Phosphatase 83 U/L (34-104) 07/07/22 17:48 Total Protein 8.0 gm/dl (6.0-8.3) 07/07/22 17:48 Albumin 4.4 gm/dl (3.4-5.0) 07/07/22 17:48 Lipase 54 U/L (11-82) 07/07/22 17:48 Urine Color Yellow 07/07/22 17:59 Urine Appearance Cloudy (Clear) A 07/07/22 17:59 Urine pH 6.5 (4.5-7.5) 07/07/22 17:59 Ur Specific [place] 1.007 (1.000-1.030) 07/07/22 17:59 Urine Protein 3+ (Negative) H 07/07/22 17:59 Urine Glucose (UA) Negative (Negative) 07/07/22 17:59 Urine Ketones Negative (Negative) 07/07/22 17:59 Urine Blood 2+ (Negative) H 07/07/22 17:59 Urine Nitrite Negative (Negative) 07/07/22 17:59 Urine Bilirubin Negative (Negative) 07/07/22 17:59 Urine Urobilinogen Negative (Negative) 07/07/22 17:59 Ur Leukocyte Esterase Trace (Negative) H 07/07/22 17:59 Urine WBC (Auto) 10-30 /hpf (0-5) H 07/07/22 17:59 Urine RBC (Auto) 0-4 /hpf (0-4) 07/07/22 17:59 U Hyaline Cast (Auto) 5-10 /lpf (0-5) H 07/07/22 17:59 U Epithel Cells (Auto) >30 /lpf (0-5) H 07/07/22 17:59 Urine Bacteria (Auto) Negative (Negative) 07/07/22 17:59 Ur Renal Epithelial Cell 0-5 /lpf (0-5) 07/07/22 17:59 Stl C. cayetanensis PCR Not Detected (NotDetected) 07/07/22 19:31 Stool Rotavirus A PCR Not Detected (NotDetected) 07/07/22 19:31 Stl Adenov F 40/41 PCR Not Detected (NotDetected) 07/07/22 19:31 Stool Astrovirus (PCR) Not Detected (NotDetected) 07/07/22 19: Stool Campylobacter PCR Not Detected (NotDetected) 07/07/22 19:31 Stl C. diff Tox B Gene Negative Cdiff Gene (Neg) 07/07/22 19: Stool Cryptosporidium PCR Not Detected (NotDetected) 07/07/22 19:31 Stl E.coli Shiga Tox PCR Not Detected (NotDetected) 07/07/22 19:31 Stl Enterotoxigenic E PCR Not Detected (NotDetected) 07/07/22 19:31 Stool EPEC (PCR) Not Detected (NotDetected) 07/07/22 19:31 Stool EAEC (PCR) Not Detected (NotDetected) 07/07/22 19:31 Stl E. histolytica PCR Not Detected (NotDetected) 07/07/22 19: Stool Giardia Lamblia PCR Not Detected (NotDetected) 07/07/22 19:31 Stool Salmonella PCR DETECTED (NotDetected) A* 07/07/22 19:31 Stool Sapovirus (PCR) Not Detected (NotDetected) 07/07/22 19: Stl P. shigelloides PCR Not Detected (NotDetected) 07/07/22 19:31 Stl Shigella/EIEC PCR Not Detected (NotDetected) 07/07/22 19: St Y.enterocolitica PCR Not Detected (NotDetected) 07/07/22 19: Stool Vibrio (PCR) Not Detected (NotDetected) 07/07/22 19:31 Stl Vibrio cholerae PCR Not Detected (NotDetected) 07/07/22 19:31 Stl Norovirus GI/GII PCR Not Detected (NotDetected) 07/07/22 19:31 SARS-CoV-2, RNA, NAAT NEGATIVE (NEGATIVE) 07/07/22 19:31 Impressions Abdomen/Pelvis CT 07/07/22 18:28 CT abd pelvis wo con CLINICAL HISTORY: epigastric pain TECHNIQUE: Helical axial images of the abdomen and pelvis were obtained. Automated dose lowering techniques and/or adjustment according to patient size were utilized for this exam. This exam was performed without intravenous contrast. CT DOSE: 754.16 mGy.cm COMPARISON: None available at the time of this dictation. FINDINGS: Lower chest: No acute abnormality. Liver: Hepatic steatosis is noted. Gallbladder and biliary tree: Patient is status post cholecystectomy. Physiologic prominence of the biliary ducts is noted. Pancreas: Unremarkable, no focal lesions. Spleen: Splenule is incidentally noted. Adrenals: Unremarkable. Kidneys and ureters: Unremarkable. Bladder: Unremarkable. Reproductive organs: Unremarkable. Bowel: Numerous diverticula are seen. There is fat stranding in the proximal sigmoid colon. Patient is status post partial colectomy. The appendix is surgically absent. Immediately small hiatal hernia. Lymph nodes Retroperitoneal: Unremarkable. Pelvic: Unremarkable. Mesenteric: Unremarkable. Peritoneum: Fat stranding is seen in the left lower quadrant. No pneumoperitoneum is seen. No fluid collections are seen to stress abscess. Vessels: Unremarkable. Abdominal wall: Bilateral fat-containing inguinal hernias are seen. An infraumbilical fat-containing hernia is seen. Bones: Right hip total arthroplasty is seen. Degenerative changes are seen in the spine. IMPRESSION: 1. Findings compatible with mild diverticulitis without abscess or perforation. 2. Hepatic steatosis. 3. Additional findings as above. ACT 112: Negative or not required by law. Electronically signed by: Dashawn Teran M.D. 07/07/2022 7:03 PM Code Status & VTE Plan Code Status Full code VTE Prophylaxis Plan VTE Prophylaxis will be ordered: Yes PG Care Time/CCT Total # of Minutes Spent Total Time Spent with Patient: Total time spent is greater than 50% in coordination of care (as documented) at patient's floor/unit and/or counseling patient: Coding Level of Care Code 89780 INT INP/OBS CARE 3/75MIN Diagnoses Salmonella food poisoning A02.9 Salmonella gastroenteritis A02.0 Diverticulitis K57.92 THA (acute kidney injury) N17.9 Anxiety F41.9 GERD (gastroesophageal reflux disease) K21.9 Hyperlipidemia E78.5 Hyperlipidemia type: unspecified Hypothyroidism E03.9 Hypothyroidism type: acquired (7) Hyperlipidemia Hyperlipidemia type: unspecified Qualified Code(s): E78.5 - Hyperlipidemia, unspecified (8) Hypothyroidism Hypothyroidism type: acquired Qualified Code(s): E03.9 - Hypothyroidism, unspecified
[2022-07-07 21:23] LABS: Adenovirus F 40/41 PCR Not Detected (NotDetected); Astrovirus PCR Not Detected (NotDetected); Campylobacter PCR Not Detected (NotDetected); Cryptosporidium PCR Not Detected (NotDetected); Cyclospora cayetanensis PCR Not Detected (NotDetected); Entamoeba histolytica PCR Not Detected (NotDetected); Enteroaggregative E.coli(EAEC) Not Detected (NotDetected); Enteropathogenic E.coli (EPEC) Not Detected (NotDetected); Enterotoxigenic E.coli (ETEC) Not Detected (NotDetected); Giardia lamblia PCR Not Detected (NotDetected); Norovirus GI/GII PCR Not Detected (NotDetected); Plesiomonas shigelloides PCR Not Detected (NotDetected); Rotavirus A PCR Not Detected (NotDetected); Sapovirus PCR Not Detected (NotDetected); Shiga-like Toxin E.coli (STEC) Not Detected (NotDetected); Shigella/Enteroinvasive E.coli Not Detected (NotDetected); Vibrio cholerae PCR Not Detected (NotDetected); Vibrio species PCR Not Detected (NotDetected); Yersinia enterocolitica PCR Not Detected (NotDetected)
[2022-07-07 21:25] LABS: Salmonella PCR DETECTED (NotDetected)
[2022-07-07] MEDS ORDERED: ONDANSETRON INJ 2 MG/ML 2 ML VIAL IV PRN (21:52)
[2022-07-07] MEDS ORDERED: SODIUM CHLORIDE 0.9% 1000ML 1,000 ML IV SCH (21:52)
[2022-07-07] MEDS: FAMOTIDINE 20 MG in SYRINGE 3 ML IV SCH (22:39)
[2022-07-08 06:37] LABS: Albumin Globulin Ratio 1.2 (0.9-2); Albumin Level 3.1 gm/dl (3.4-5.0); BUN Creatinine Ratio 10.6 (10-20); Bilirubin,Total 0.4 mg/dl (0.2-1.0); Calcium 8.3 mg/dl (8.6-10.3); Creatinine Clr Calc Pharmacy 11.7 ml/min; Est GFR (African American) 18.3 ml/min; Est GFR (Non-African American) 15.8 ml/min; Globulin 2.5 gm/dl (2.5-4.0); Magnesium 1.9 mg/dl (1.7-2.4); Potassium 3.8 mmol/L (3.5-5.1); Total Protein 5.6 gm/dl (6.0-8.3)
[2022-07-08 06:41] LABS: Basophils # (auto) 0.06 K/uL (0-0.2); Basophils % (auto) 0.5 %; Eosinophils # (auto) 0.15 K/uL (0-0.50); Eosinophils % (auto) 1.4 %; Hematocrit (blood only) 32.5 % (37.0-47.0); Hemoglobin 10.8 g/dl (12.0-16.0); Immature Granulocytes # (auto) 0.21 K/uL (0.01-0.20); Immature Granulocytes % (auto) 1.9 %; Lymphocytes # (auto) 1.47 K/uL (1.2-3.4); Lymphocytes % (auto) 13.4 %; Mean Corpuscular Hemoglobin 30.1 pg (25.0-34.0); Mean Corpuscular Hgb Conc 33.2 g/dL (32.0-36.0); Mean Corpuscular Volume 90.5 fL (80.0-100.0); Mean Platelet Volume 9.2 fL (9.4-12.4); Monocytes # (auto) 1.32 K/uL (0.11-0.59); Monocytes % (auto) 12.1 %; Neutrophils # (auto) 7.73 K/uL (1.40-6.50); Neutrophils % (auto) 70.7 %; Platelet Count 273 K/uL (130-400); RDW Coefficient of Variation 13.2 % (11.5-14.5); RDW Standard Deviation 43.5 fL (36.4-46.3); Red Blood Count 3.59 M/uL (4.20-5.40); White Blood Count 10.94 K/ul (4.8-10.8)
[2022-07-08] MEDS: FAMOTIDINE 20 MG in SYRINGE 3 ML IV SCH ×2 (07:57→20:16)
--- NOTE | 2022-07-08 07:59 | Hospitalist Progress Note ---
Date of Service July 08, 2022 Assessment & Plan (1) THA (acute kidney injury): Plan: Worsening THA, baseline creatinine 0.7 -> 2.1 -> 2.7 despite IVF overnight Urinalysis with 3+ protein, 2+ blood but no RBCs, no bacteria or nitrites CTAP w/ contrast without evidence of post-obstructive cause Differential is prerenal THA vs ATN vs AIN, do expect some component associated with dehydration, continue diverticulitis treatment below Nephrology consulted and appreciate recommendations: Recommend empiric methylprednisolone for AIN if kidney function does not start to improve in the next 24-48 hours Will need to discuss with Medical Staff Coordinator given patient has allergy listed on chart to methylpred (uses topical prescription steroid creams including triamcinolone without rash) (2) Diverticulitis: Plan: With several days of abdominal pain and diarrhea, recently put on Cipro by outside provider, however developed a rash CTAP with evidence of diverticulitis without evidence of abscess/perforation WBC count 13.73-> 10.8 today, continue Invanz at renal dosing 500 mg q24h, repeat CBC in AM Patient with a history of multiple medication intolerances/allergies, recommend continued follow-up with assistant professor of biology for allergy testing (3) Salmonella gastroenteritis: Plan: Noted on stool PCR while undergoing evaluation for diarrhea Supportive care with fluids (4) Salmonella food poisoning: Plan: see above (5) GERD (gastroesophageal reflux disease): Plan: History of on chart, however not on chronic therapy Due to epigastric pain will place on IV famotidine for now (6) Hyperlipidemia: Plan: Hold statin while NPO (7) Hypothyroidism: Plan: Hold levothyroxine while NPO (8) Anxiety: Plan: Patient with self-reported anxiety, her chronic gabapentin as helped her, continue this Ativan 0.5mg PO BID prn severe anxiety Recommended follow up with PCP regarding daily agents for anxiety and/or counseling services Plan Continued care with IV antibiotics for diverticulitis. Transition to PO Abx will be more challenging due to history of multiple antibiotic intolerances/allergies. Continue NSS at 100cc/hr, scheduled to stop tomorrow AM. Admission and Anticipated Discharge Date Admission Date: July 07, 2022 Subjective Patient without any acute events overnight. She reports that she is very anxious person at baseline, but feels even more anxious due to her medical condition at this time and has a lot of questions. She reports that her abdominal pain is better today than it was yesterday, and she does not report feeling nauseous. She denies any chest pain or shortness of breath. Review of Systems Review of Systems: All systems reviewed & are unremarkable except as noted in Subjective Physical Exam Constitutional: WD/WN, vitals as above Respiratory: normal respiratory effort, lungs clear to auscultation Cardiovascular: RRR, no murmur, no edema Gastrointestinal (Abdomen): normal bowel sounds, soft, nontender, no hepatosplenomegaly Skin: no rashes, warm and dry Psychiatric: A+Ox3, euthymic affect Results & Data Results & Data Vital Signs (Past 12 Hours) Vital Signs Temp Pulse Pulse Resp BP BP Pulse Ox 07/08/22 07:19 36.4 C L 54 L 16 123/54 L 95 07/07/22 22:11 36.7 C 16 165/66 H 96 07/07/22 21:52 36.7 C 16 165/66 H 96 07/07/22 21:00 66 19 140/50 L 93 07/07/22 20:00 56 L 23 151/58 H 97 O2 Del Method 07/08/22 07:19 Room Air 07/07/22 22:11 Room Air 07/07/22 21:52 Room Air 07/07/22 21:00 Room Air 07/07/22 20:00 Room Air PG Care Time/CCT Total # of Minutes Spent Total Time Spent with Patient: Total time spent is greater than 50% in coordination of care (as documented) at patient's floor/unit and/or counseling patient: Coding Level of Care Code 16701 SUB INP/OBS CARE 3/50MIN Diagnoses THA (acute kidney injury) N17.9 Diverticulitis K57.92 Salmonella gastroenteritis A02.0 Salmonella food poisoning A02.9 GERD (gastroesophageal reflux disease) K21.9 Hyperlipidemia E78.5 Hyperlipidemia type: unspecified Hypothyroidism E03.9 Hypothyroidism type: acquired Anxiety F41.9 (6) Hyperlipidemia Hyperlipidemia type: unspecified Qualified Code(s): E78.5 - Hyperlipidemia, unspecified (7) Hypothyroidism Hypothyroidism type: acquired Qualified Code(s): E03.9 - Hypothyroidism, unspecified
[2022-07-08] MEDS: SODIUM CHLORIDE 0.9% 1000ML 1,000 ML IV SCH ×2 (08:39→17:02)
[2022-07-08] MEDS: GABAPENTIN 100 MG CAP PO SCH (12:41)
--- NOTE | 2022-07-08 15:41 | Nephrology Consultation ---
Date of Consultation July 08, 2022 Assessment & Plan (1) THA (acute kidney injury): Non-oliguric THA. Baseline creatinine 0.7 mg/dL. Electrolytes normal. Volume status acceptable. No indication for C.O.D. CLERK at this time. DDx includes suspected ATN vs AIN. Urine studies support prerenal component associated with dehydration. Thankfully, GI symptoms are improving with treatment and Sinai is tolerating IVF well. She remains on IV NSS at 100 ml/hr. Medications are currently appropriately dosed for kidney function. If kidney function does not start to improve in the next 24-48 hours, I would consider starting empiric methylprednisolone for suspected AIN. Repeat metabolic profile tomorrow AM. Document strict I/O's. (2) Salmonella gastroenteritis: Remains on ertapenem. Multiple antibiotic allergies. Clinically improving. (3) Allergy to antibiotic: Follow up with Dr. Samaniego in the allergy clinic post discharge. History of Present Illness Reason for Consultation: worsening THA, ? ATN Requesting Physician: Ngoc Ashley DO Attending Physician: Ngoc Ashley DO History of Present Illness Mrs. Sinai Bell was seen and evaluated this afternoon with her (Raza) at the bedside. I discussed the recent history and plan of care with Dr. Grossman earlier today. Nephrology consultation requested for THA. Serum creatinine at baseline <1 mg/dL. There is no prior history of kidney disease. Sinai was admitted to [facility] yesterday with persistent nausea, vomiting, and diarrhea. She describes some generalized abdominal pain. She was found to be dehydrated from ongoing gastroenteritis. Evaluation notable for stool PCR +salmonella. Ertapenem started in the ER. GI symptoms started on July 02 and are now improving. She continues to report some persistent pain in her back in the lower thoracic area which started today. Medical history is notable for SYDNIE, endometrial hyperplasia, GERD, osteopenia, prediabetes, hypothyroidism, hyperlipidemia, dermatitis, and a history of partial colectomy. Serum creatinine was 2.1 mg/dL on admission and 2.7 mg/dL this morning. Sinai is non-oliguric. CT scan demonstrated the kidneys to be unobstructed. Urine analysis notable for 3+ protein, 2+ blood and microscopy demonstrating 10-30 WBC and hyaline casts. No RBCs or RBC casts. IV saline infusing at 100 ml/hr. Sinai denies fluid retention or edema. On May 12, she started treatment with ciprofloxacin and dicyclomine provided by her PCP. After 2 doses of the antibiotic, she developed a rash on her back. She stopped the medication. Sinai has a history of multiple drug allergies. She has experienced rash with penicillins and clindamycin in the past. She follows with Dr. Samaniego in the allergy clinic for a history of antibiotic allergies. She also reports taking some Advil, approximately 1-2 tabs every few days for pain. Allergies Allergy/AdvReac Type Severity Reaction Status Date / Time Penicillins Allergy Severe FEET Verified 07/07/22 18:49 SWELLED HAD TO BE CARRIED shellfish derived Allergy Severe Gastrointestinal Unverified 07/07/22 18:49 Upset bacitracin Allergy Intermediate TOTAL BODY Verified 07/07/22 18:49 RASH/SWELLING benzocaine Allergy Intermediate Rash Verified 07/07/22 18:49 clindamycin Allergy Intermediate RASH Verified 07/07/22 18:49 cobalt Allergy Intermediate TOTAL BODY Verified 07/07/22 18:49 RASH/SWELLING ethylenediamine Allergy Intermediate Rash Verified 07/07/22 18:49 hydrocortisone Allergy Intermediate TOTAL BODY Verified 07/07/22 18:49 RASH/SWELLING methylprednisolone Allergy Intermediate Rash Verified 07/07/22 18:49 neomycin Allergy Intermediate TOTAL BODY Verified 07/07/22 18:49 RASH/SWELLING oxycodone Allergy Intermediate Rash Verified 07/07/22 18:49 prednisolone Allergy Intermediate Rash Verified 07/07/22 18:49 tixocortol Allergy Intermediate TOTAL BODY Verified 07/07/22 18:49 RASH/SWELLING formaldehyde Allergy Unknown Unknown Verified 07/07/22 18:49 metronidazole Allergy Unknown Gastrointestinal Verified 07/07/22 18:49 Upset ciprofloxacin [From Cipro] AdvReac Mild rash Verified 07/07/22 18:49 Home Medications Medication Instructions Recorded Confirmed Type calcium carbonate 600 mg-vitamin 1 tab PO QAM 09/04/18 07/07/22 History D3 5 mcg (200 unit) tablet multivitamin (One-A-Day Essential 1 tab PO PM 09/04/18 07/07/22 History tablet) aspirin 81 mg tablet,delayed 81 mg PO QAM 03/24/19 07/07/22 History release (Aspir-) triamcinolone acetonide 0.1 % 1 applic topical BID PRN Itching 09/14/21 07/07/22 History topical cream levothyroxine 25 mcg tablet 25 mcg PO QAM #90 tabs 02/20/22 07/07/22 Rx rosuvastatin 10 mg tablet 10 mg PO HS #90 tabs 06/28/22 07/07/22 Rx gabapentin 100 mg capsule 100 mg PO DAILY 07/06/22 07/07/22 History Patient History Medical History Acute bronchitis resolved 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> then SBO> resolved Endometrial hyperplasia Endometrial thickening on ultrasound GERD (gastroesophageal reflux disease) Herpes zoster Hx of rotator cuff tear right Hyperlipidemia Hypothyroidism Pneumonia resolved Postmenopausal Postmenopausal bleeding Pre-diabetes Sinus bradycardia pt unaware > no cardiology Surgical History History of appendectomy History of delivery x2 History of cholecystectomy History of colonoscopy History of endometrial ablation History of hip replacement Right FREDDY (2007/[facility]): post-operatively patient reports diffuse rash/itching on post-op day#3, suspected to be contact dermatitis from the bedsheets per discharge summary (given benadryl)- 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 Wilda Jaeger History of resection of small bowel History of tonsillectomy Family History Mother Depression Other Myocardial infarction Stroke Denies family history of Ovarian cancer Prostate cancer Diabetes Breast cancer Lung cancer Colorectal cancer Hypertension Social History Smoking Status: Never smoker Second Hand Exposure: No; Do You Dip or Chew Tobacco: No; Hx Alcohol Use: No Hx Substance Use: No Preferred Language: Lithuanian Communication Ability: Effective Visual Impairment: Limited Hearing Ability: Normal Cleaner And Trimmer Required: No Beliefs That Will Affect Care: None marital status: Current Living Situation: Spouse current occupational status: employed current occupation: realtor How many Children do You have: 2 Feels Safe at Home: Yes Safety Concerns: Feels Safe At This Time Childhood Exposure to Second-Hand Smoke: Yes caffeine: Yes (drinks tea ) Dental Care, Regularly: Yes Physical Activity Frequency: 3-4 Times per Week Seatbelt Use: always Sunscreen Use: Yes (tries to ) Assistive Devices: None Review of Systems Review of Systems: All systems reviewed & are unremarkable except as noted in HPI & below Physical Exam Constitutional: well developed; no acute distress Eyes: no scleral abnormality and no corneal abnormality ENMT: Mouth: no oral mucosal abnormality and oral mucous membranes not dry Neck: normal visual inspection and trachea midline Respiratory: normal respiratory effort Auscultation: lungs clear to auscultation bilaterally Cardiovascular: Rate/Rhythm: regular rate Heart Sounds: normal S1 and normal S2 Extremities: + pedal edema and + varicosities Gastrointestinal (Abdomen): Inspection/Auscultation: abdomen normal to inspection and + abdomen distended Percussion/Palpation: abdomen soft; abdomen nontender Musculoskeletal: Extremities: no cyanosis and no clubbing Skin: normal turgor; no lesions Neurologic: Motor/Sensory: no tremor and no asterixis Psychiatric: Orientation: alert and oriented x 3 Results & Data Vital Signs (Past 12 Hours) Vital Signs Temp Pulse Resp BP Pulse Ox O2 Del Method 07/08/22 14:43 36.7 C 52 L 16 137/57 L 96 Room Air 07/08/22 07:19 36.4 C L 54 L 16 123/54 L 95 Room Air Laboratory Results Laboratory Results - last 24 hr 07/07/22 07/07/22 07/07/22 17:48 17:48 17:48 WBC 13.73 H RBC 4.62 Hgb 13.9 Hct 40.9 MCV 88.5 MCH 30.1 MCHC 34.0 RDW Std Deviation 42.5 RDW Coeff of Eduard 13.2 Plt Count 343 MPV 8.9 L Immature Gran % (Auto) 1.9 Neut % (Auto) 72.9 Lymph % (Auto) 12.1 [place] % (Auto) 11.7 Eos % (Auto) 0.9 Baso % (Auto) 0.5 Neut # (Auto) 10.01 H Lymph # (Auto) 1.66 [place] # (Auto) 1.61 H Eos # (Auto) 0.12 Baso # (Auto) 0.07 Immature Gran # (Auto) 0.26 H PT 10.6 INR 1.0 APTT 23.9 PTT Ratio 0.8 Sodium 137 Potassium 3.9 Chloride 100 Carbon Dioxide 28 Anion Gap 9 BUN 28 H Creatinine 2.16 H D Est Cr Clr Drug Dosing 15.0 Est GFR ( Amer) 24.5 Est GFR (Non-Af Amer) 21.1 BUN/Creatinine Ratio 13.0 Glucose 90 Calcium 9.8 Magnesium 2.2 Total Bilirubin 0.7 Direct Bilirubin TNP AST 43 H ALT 32 Alkaline Phosphatase 83 Total Protein 8.0 Albumin 4.4 Globulin Albumin/Globulin Ratio Lipase 54 Urine Color Urine Appearance Urine pH Ur Specific [place] Urine Protein Urine Glucose (UA) Urine Ketones Urine Blood Urine Nitrite Urine Bilirubin Urine Urobilinogen Ur Leukocyte Esterase Urine WBC (Auto) Urine RBC (Auto) U Hyaline Cast (Auto) U Epithel Cells (Auto) Urine Bacteria (Auto) Ur Renal Epithelial Cell Ur Random Sodium Stl C. cayetanensis PCR Stool Rotavirus A PCR Stl Adenov F PCR Stool Astrovirus (PCR) Stool Campylobacter PCR Stl C. diff Tox B Gene Stool Cryptosporidium PCR Stl E.coli Shiga Tox PCR Stl Enterotoxigenic E PCR Stool EPEC (PCR) Stool EAEC (PCR) Stl E. histolytica PCR Stool Giardia Lamblia PCR Stool Salmonella PCR Stool Sapovirus (PCR) Stl P. shigelloides PCR Stl Shigella/EIEC PCR St Y.enterocolitica PCR Stool Vibrio (PCR) Stl Vibrio cholerae PCR Stl Norovirus GI/GII PCR SARS-CoV-2, RNA, NAAT 07/07/22 07/07/22 07/07/22 17:59 19:31 19:31 WBC RBC Hgb Hct MCV MCH MCHC RDW Std Deviation RDW Coeff of Eduard Plt Count MPV Immature Gran % (Auto) Neut % (Auto) Lymph % (Auto) [place] % (Auto) Eos % (Auto) Baso % (Auto) Neut # (Auto) Lymph # (Auto) [place] # (Auto) Eos # (Auto) Baso # (Auto) Immature Gran # (Auto) PT INR APTT PTT Ratio Sodium Potassium Chloride Carbon Dioxide Anion Gap BUN Creatinine Est Cr Clr Drug Dosing Est GFR ( Amer) Est GFR (Non-Af Amer) BUN/Creatinine Ratio Glucose Calcium Magnesium Total Bilirubin Direct Bilirubin AST ALT Alkaline Phosphatase Total Protein Albumin Globulin Albumin/Globulin Ratio Lipase Urine Color Yellow Urine Appearance Cloudy A Urine pH 6.5 Ur Specific [place] 1.007 Urine Protein 3+ H Urine Glucose (UA) Negative Urine Ketones Negative Urine Blood 2+ H Urine Nitrite Negative Urine Bilirubin Negative Urine Urobilinogen Negative Ur Leukocyte Esterase Trace H Urine WBC (Auto) 10-30 H Urine RBC (Auto) 0-4 U Hyaline Cast (Auto) 5-10 H U Epithel Cells (Auto) >30 H Urine Bacteria (Auto) Negative Ur Renal Epithelial Cell 0-5 Ur Random Sodium Stl C. cayetanensis PCR Not Detected Stool Rotavirus A PCR Not Detected Stl Adenov F 40/41 PCR Not Detected Stool Astrovirus (PCR) Not Detected Stool Campylobacter PCR Not Detected Stl C. diff Tox B Gene Negative Cdiff Gene Stool Cryptosporidium PCR Not Detected Stl E.coli Shiga Tox PCR Not Detected Stl Enterotoxigenic E PCR Not Detected Stool EPEC (PCR) Not Detected Stool EAEC (PCR) Not Detected Stl E. histolytica PCR Not Detected Stool Giardia Lamblia PCR Not Detected Stool Salmonella PCR DETECTED A* Stool Sapovirus (PCR) Not Detected Stl P. shigelloides PCR Not Detected Stl Shigella/EIEC PCR Not Detected St Y.enterocolitica PCR Not Detected Stool Vibrio (PCR) Not Detected Stl Vibrio cholerae PCR Not Detected Stl Norovirus GI/GII PCR Not Detected SARS-CoV-2, RNA, NAAT 07/07/22 07/08/22 07/08/22 19:31 05:31 05:31 WBC 10.94 H RBC 3.59 L Hgb 10.8 L D Hct 32.5 L MCV 90.5 MCH 30.1 MCHC 33.2 RDW Std Deviation 43.5 RDW Coeff of Eduard 13.2 Plt Count 273 MPV 9.2 L Immature Gran % (Auto) 1.9 Neut % (Auto) 70.7 Lymph % (Auto) 13.4 [place] % (Auto) 12.1 Eos % (Auto) 1.4 Baso % (Auto) 0.5 Neut # (Auto) 7.73 H Lymph # (Auto) 1.47 [place] # (Auto) 1.32 H Eos # (Auto) 0.15 Baso # (Auto) 0.06 Immature Gran # (Auto) 0.21 H PT INR APTT PTT Ratio Sodium 141 Potassium 3.8 Chloride 109 H Carbon Dioxide 27 Anion Gap 5 BUN 29 H Creatinine 2.74 H D Est Cr Clr Drug Dosing 11.7 Est GFR ( Amer) 18.3 Est GFR (Non-Af Amer) 15.8 BUN/Creatinine Ratio 10.6 Glucose 94 Calcium 8.3 L Magnesium 1.9 Total Bilirubin 0.4 Direct Bilirubin AST 26 ALT 19 Alkaline Phosphatase 50 Total Protein 5.6 L D Albumin 3.1 L Globulin 2.5 Albumin/Globulin Ratio 1.2 Lipase Urine Color Urine Appearance Urine pH Ur Specific [place] Urine Protein Urine Glucose (UA) Urine Ketones Urine Blood Urine Nitrite Urine Bilirubin Urine Urobilinogen Ur Leukocyte Esterase Urine WBC (Auto) Urine RBC (Auto) U Hyaline Cast (Auto) U Epithel Cells (Auto) Urine Bacteria (Auto) Ur Renal Epithelial Cell Ur Random Sodium Stl C. cayetanensis PCR Stool Rotavirus A PCR Stl Adenov F PCR Stool Astrovirus (PCR) Stool Campylobacter PCR Stl C. diff Tox B Gene Stool Cryptosporidium PCR Stl E.coli Shiga Tox PCR Stl Enterotoxigenic E PCR Stool EPEC (PCR) Stool EAEC (PCR) Stl E. histolytica PCR Stool Giardia Lamblia PCR Stool Salmonella PCR Stool Sapovirus (PCR) Stl P. shigelloides PCR Stl Shigella/EIEC PCR St Y.enterocolitica PCR Stool Vibrio (PCR) Stl Vibrio cholerae PCR Stl Norovirus GI/GII PCR SARS-CoV-2, RNA, NAAT NEGATIVE 07/08/22 12:10 WBC RBC Hgb Hct MCV MCH MCHC RDW Std Deviation RDW Coeff of Eduard Plt Count MPV Immature Gran % (Auto) Neut % (Auto) Lymph % (Auto) [place] % (Auto) Eos % (Auto) Baso % (Auto) Neut # (Auto) Lymph # (Auto) [place] # (Auto) Eos # (Auto) Baso # (Auto) Immature Gran # (Auto) PT INR APTT PTT Ratio Sodium Potassium Chloride Carbon Dioxide Anion Gap BUN Creatinine Est Cr Clr Drug Dosing Est GFR ( Amer) Est GFR (Non-Af Amer) BUN/Creatinine Ratio Glucose Calcium Magnesium Total Bilirubin Direct Bilirubin AST ALT Alkaline Phosphatase Total Protein Albumin Globulin Albumin/Globulin Ratio Lipase Urine Color Urine Appearance Urine pH Ur Specific [place] Urine Protein Urine Glucose (UA) Urine Ketones Urine Blood Urine Nitrite Urine Bilirubin Urine Urobilinogen Ur Leukocyte Esterase Urine WBC (Auto) Urine RBC (Auto) U Hyaline Cast (Auto) U Epithel Cells (Auto) Urine Bacteria (Auto) Ur Renal Epithelial Cell Ur Random Sodium 29 Stl C. cayetanensis PCR Stool Rotavirus A PCR Stl Adenov PCR Stool Astrovirus (PCR) Stool Campylobacter PCR Stl C. diff Tox B Gene Stool Cryptosporidium PCR Stl E.coli Shiga Tox PCR Stl Enterotoxigenic E PCR Stool EPEC (PCR) Stool EAEC (PCR) Stl E. histolytica PCR Stool Giardia Lamblia PCR Stool Salmonella PCR Stool Sapovirus (PCR) Stl P. shigelloides PCR Stl Shigella/EIEC PCR St Y.enterocolitica PCR Stool Vibrio (PCR) Stl Vibrio cholerae PCR Stl Norovirus GI/GII PCR SARS-CoV-2, RNA, NAAT Diagnostic Findings CT abd pelvis wo con Lower chest: No acute abnormality. Liver: Hepatic steatosis is noted. Gallbladder and biliary tree: Patient is status post cholecystectomy. Physiologic prominence of the biliary ducts is noted. Pancreas: Unremarkable, no focal lesions. Spleen: Splenule is incidentally noted. Adrenals: Unremarkable. Kidneys and ureters: Unremarkable. Bladder: Unremarkable. Reproductive organs: Unremarkable. Bowel: Numerous diverticula are seen. There is fat stranding in the proximal sigmoid colon. Patient is status post partial colectomy. The appendix is surgically absent. Immediately small hiatal hernia. Lymph nodes Retroperitoneal: Unremarkable. Pelvic: Unremarkable. Mesenteric: Unremarkable. Peritoneum: Fat stranding is seen in the left lower quadrant. No pneumoperitoneum is seen. No fluid collections are seen to stress abscess. Vessels: Unremarkable. Abdominal wall: Bilateral fat-containing inguinal hernias are seen. An infraumbilical fat-containing hernia is seen. Bones: Right hip total arthroplasty is seen. Degenerative changes are seen in the spine. IMPRESSION: 1. Findings compatible with mild diverticulitis without abscess or perforation. 2. Hepatic steatosis. PG Care Time/CCT Total # of Minutes Spent Total Time Spent with Patient: Total time spent is greater than 50% in coordination of care (as documented) at patient's floor/unit and/or counseling patient: Coding Level of Care Code 39734 IN/OBS CONSULT LVL 4,60M Diagnoses THA (acute kidney injury) N17.9 Salmonella gastroenteritis A02.0 Allergy to antibiotic Z88.1
[2022-07-08] MEDS ORDERED: TRIAMCINOLONE ACET 0.1% CR 15 GM TUBE TOP PRN (17:02)
[2022-07-08] MEDS ORDERED: ERTAPENEM SODIUM 500 MG in SYRINGE 0 ML IV SCH (18:00)
[2022-07-08] MEDS: ROSUVASTATIN CALCIUM 10 MG TAB PO SCH (20:37)
--- NOTE | 2022-07-08 21:18 | Electrocardiogram Report ---
Test Reason : Blood Pressure : / mmHG Vent. Rate : 055 BPM Atrial Rate : 055 BPM P-R Int : 158 ms QRS Dur : 102 ms QT Int : 412 ms P-R-T Axes : 026 -41 036 degrees QTc Int : 394 ms Sinus bradycardia Left axis deviation Moderate voltage criteria for LVH, may be normal variant ( R in aVL , Hal product ) Anterior infarct , age undetermined Abnormal ECG When compared with ECG of 12-MAR-2019 13:16, No significant change was found Confirmed by Daniel Mario ([id number]) on 07/08/2022 9:18:18 PM Referred By: Leonel Antunez Confirmed By:Daniel Mario
[2022-07-09] MEDS: SODIUM CHLORIDE 0.9% 1000ML 1,000 ML IV SCH (02:28)
[2022-07-09] MEDS: LEVOTHYROXINE SODIUM 25 MCG TABLET PO SCH (05:35)
[2022-07-09 07:16] LABS: Hematocrit (blood only) 33.4 % (37.0-47.0); Mean Corpuscular Hgb Conc 32.9 g/dL (32.0-36.0); Mean Platelet Volume 9.5 fL (9.4-12.4); Platelet Count 274 K/uL (130-400); RDW Coefficient of Variation 13.6 % (11.5-14.5); RDW Standard Deviation 45.5 fL (36.4-46.3); Red Blood Count 3.67 M/uL (4.20-5.40)
[2022-07-09 07:26] LABS: Albumin Level 3.1 gm/dl (3.4-5.0); Calcium 8.1 mg/dl (8.6-10.3); Potassium 3.9 mmol/L (3.5-5.1)
[2022-07-09 07:32] LABS: BUN Creatinine Ratio 8.8 (10-20); Creatinine Clr Calc Pharmacy 9.1 ml/min; Est GFR (African American) 13.5 ml/min; Est GFR (Non-African American) 11.7 ml/min; Phosphorus 4.3 mg/dl (2.5-4.9)
[2022-07-09 07:44] LABS: Basophils # (auto) 0.08 K/uL (0-0.2); Basophils % (auto) 0.8 %; Eosinophils # (auto) 0.27 K/uL (0-0.50); Eosinophils % (auto) 2.6 %; Immature Granulocytes # (auto) 0.58 K/uL (0.01-0.20); Immature Granulocytes % (auto) 5.5 %; Lymphocytes # (auto) 2.02 K/uL (1.2-3.4); Lymphocytes % (auto) 19.2 %; Monocytes % (auto) 10.5 %; Neutrophils # (auto) 6.45 K/uL (1.40-6.50); Neutrophils % (auto) 61.4 %
[2022-07-09] MEDS: GABAPENTIN 100 MG CAP PO SCH ×2 (09:11→20:13)
[2022-07-09] MEDS: ASPIRIN 81 MG ECTAB PO SCH (09:11)
[2022-07-09] MEDS: FAMOTIDINE 20 MG in SYRINGE 3 ML IV SCH (09:14)
[2022-07-09] MEDS ORDERED: SODIUM CHLORIDE 0.9% 1000ML 1,000 ML IV SCH (09:30)
--- NOTE | 2022-07-09 10:51 | Nephrology Progress Note ---
Date of Service July 09, 2022 Assessment & Plan (1) THA (acute kidney injury): Plan: Non-oliguric THA. No renal recovery. Creatinine continues to rise. Baseline creatinine 0.7 mg/dL. Electrolytes normal. Volume status acceptable. No indication for GEOTHERMAL SYSTEM INSTALLER at this time. DDx includes suspected ATN vs AIN. Urine studies support prerenal component associated with dehydration. Sinai is tolerating IVF well. Stop NSS and start plasmalyte infusion this AM. Medications are currently appropriately dosed for kidney function. If kidney function does not start to improve in the next 24-48 hours, I would consider starting empiric methylprednisolone for suspected AIN. Repeat metabolic profile tomorrow this afternoon. Document strict I/O's. (2) Salmonella gastroenteritis: Plan: Remains on ertapenem. Multiple antibiotic allergies. Clinically improving. (3) Allergy to antibiotic: Plan: Follow up with Dr. Samaniego in the allergy clinic post discharge. Admission and Anticipated Discharge Date Admission Date: July 07, 2022 Subjective No acute events overnight. No complaints this AM. Loose bowel movements persist. No melena or hematochezia. Increased bowel activity but denies abdominal pain. No fevers or chills. Denies fluid retention or edema. Review of Systems Review of Systems: All systems reviewed & are unremarkable except as noted in HPI & below Physical Exam Constitutional: well developed; no acute distress Eyes: no scleral abnormality and no corneal abnormality ENMT: Mouth: no oral mucosal abnormality and oral mucous membranes not dry Neck: normal visual inspection and trachea midline Respiratory: normal respiratory effort Auscultation: lungs clear to aus cultation bilaterally Cardiovascular: Rate/Rhythm: regular rate Heart Sounds: normal S1 and normal S2 Extremities: no edema Gastrointestinal (Abdomen): Inspection/Auscultation: abdomen normal to inspection and + abdomen distended Percussion/Palpation: abdomen soft; abdomen nontender Musculoskeletal: Extremities: no cyanosis and no clubbing Skin: normal turgor; no lesions Neurologic: Motor/Sensory: no tremor and no asterixis Psychiatric: Orientation: alert and oriented x 3 Results & Data Vital Signs (Past 12 Hours) Vital Signs Temp Pulse Resp BP BP Pulse Ox O2 Del Method 07/09/22 07:29 Room Air 07/09/22 07:08 36.5 C 45 L 16 151/56 H 94 Room Air 07/08/22 22:51 36.5 C 50 L 16 137/71 95 Room Air Laboratory Results Laboratory Results - last 24 hr 07/08/22 07/09/22 07/09/22 12:10 06:01 06:02 WBC 10.50 RBC 3.67 L Hgb 11.0 L Hct 33.4 L MCV 91.0 MCH 30.0 MCHC 32.9 RDW Std Deviation 45.5 RDW Coeff of Eduard 13.6 Plt Count 274 MPV 9.5 Immature Gran % (Auto) 5.5 Neut % (Auto) 61.4 Lymph % (Auto) 19.2 Gem % (Auto) 10.5 Eos % (Auto) 2.6 Baso % (Auto) 0.8 Neut # (Auto) 6.45 Lymph # (Auto) 2.02 Gem # (Auto) 1.10 H Eos # (Auto) 0.27 Baso # (Auto) 0.08 Immature Gran # (Auto) 0.58 H Sodium 142 Potassium 3.9 Chloride 114 H Carbon Dioxide 20 L Anion Gap 8 BUN 31 H Creatinine 3.53 H D Est Cr Clr Drug Dosing 9.1 Est GFR ( Amer) 13.5 Est GFR (Non-Af Amer) 11.7 BUN/Creatinine Ratio 8.8 L Glucose 93 Calcium 8.1 L Phosphorus 4.3 Magnesium 2.0 Albumin 3.1 L Ur Random Sodium 29 PG Care Time/CCT Total # of Minutes Spent Total Time Spent with Patient: Total time spent is greater than 50% in coordination of care (as documented) at patient's floor/unit and/or counseling patient: Coding Level of Care Code 30613 SUB INP/OBS CARE 3/50MIN Diagnoses THA (acute kidney injury) N17.9 Salmonella gastroenteritis A02.0 Allergy to antibiotic Z88.1
[2022-07-09] MEDS: PLASMA-LYTE A 1,000 ML IV SCH ×2 (11:14→20:13)
[2022-07-09 11:37] LABS: Thyroid Stimulating Hormone 2.123 uIu/ml (0.300-4.500)
[2022-07-09 11:39] LABS: T4 Free Thyroxine 1.12 ng/dl (0.61-1.60)
--- NOTE | 2022-07-09 15:43 | Hospitalist Progress Note ---
Date of Service July 09, 2022 Assessment & Plan (1) THA (acute kidney injury): Plan: Creatinine has risen to 3.5. Appreciate nephrology consultation and recommendations. She is now on IV fluids at 150 MLS per hour. Random urine sodium is 29. Random urine creatinine is pending. CTAP w/ contrast without evidence of post-obstructive cause. Some concern whether CT contrast material has aggravated renal function. Nephrology may add parenteral steroids later today. (2) Diverticulitis: Plan: With several days of abdominal pain and diarrhea, recently put on Cipro by outside provider, however developed a rash. CTAP with evidence of diverticulitis without evidence of abscess/perforation. Ertapenem has been switched to intravenous Rocephin. Serial labs. (3) Salmonella gastroenteritis: Plan: Ertapenem has been switched to intravenous Rocephin. Frequency of stools has decreased (4) Salmonella food poisoning: Plan: Probably acquired from pork she recently consumed (5) GERD (gastroesophageal reflux disease): Plan: Currently on IV famotidine (6) Hyperlipidemia: Plan: Holding statin temporarily (7) Hypothyroidism: Plan: Stable. Continue thyroid replacement therapy (8) Anxiety: Plan: Treated with gabapentin. Stable. Plan Anticipate eventual discharge to home. Admission and Anticipated Discharge Date Admission Date: July 07, 2022 Subjective Alert and oriented. No distress. Creatinine continues to trend upward, now 3.5. IV fluids have been started and uptitrated. Appreciate nephrology assi stance. Ertapenem has been switched to Rocephin after discussion with pharmacy. Review of Systems Review of Systems: Constitutional-no fever or chills ENT-no blurred vision, no double vision, no epistaxis, no sore throat Respiratory-no cough, no wheezing, no shortness of breath Cardiac-no palpitations, no chest pain, no syncope GI-no nausea, vomiting, melena, hematochezia. Frequency of diarrhea stool has decreased -no urinary retention, no urinary incontinence, no dysuria, no hematuria Musculoskeletal-no joint pain, no muscle tenderness Skin-no bruising, no rashes, no pruritus Neuro-no isolated weakness, no paresthesia, no weakness Psych-no depression, no anxiety Physical Exam Physical Exam: General-alert and oriented x3, no fevers, no chills HEENT-head atraumatic and normocephalic, pupils equal and reactive to light, extraocular muscles intact Neck-no lymphadenopathy or thyromegaly, trachea midline Chest-clear to auscultation percussion. No rales wheezing or rhonchi Cardiac-regular rate and rhythm, normal S1 and S2 Abdomen-normal bowel sounds, nontender, no hepatosplenomegaly Extremities-no cyanosis, clubbing, or edema Neuro-cranial nerves II through XII intact, motor and sensory function within normal limits, strength symmetrical , no focal deficits Psych-normal affect, normal mood Results & Data Results & Data Vital Signs (Past 12 Hours) Vital Signs Temp Pulse Resp BP Pulse Ox O2 Del Method 07/09/22 07:29 Room Air 07/09/22 07:08 36.5 C 45 L 16 151/56 H 94 Room Air Laboratory Results 07/09/22 06:01 PG Care Time/CCT Total # of Minutes Spent Total Time Spent with Patient: Total time spent is greater than 50% in coordination of care (as documented) at patient's floor/unit and/or counseling patient: Coding Level of Care Code 89416 SUB INP/OBS CARE 3/50MIN Diagnoses THA (acute kidney injury) N17.9 Diverticulitis K57.92 Salmonella gastroenteritis A02.0 Salmonella food poisoning A02.9 GERD (gastroesophageal reflux disease) K21.9 Hyperlipidemia E78.5 Hyperlipidemia type: unspecified Hypothyroidism E03.9 Hypothyroidism type: acquired Anxiety F41.9 (6) Hyperlipidemia Hyperlipidemia type: unspecified Qualified Code(s): E78.5 - Hyperlipidemia, unspecified (7) Hypothyroidism Hypothyroidism type: acquired Qualified Code(s): E03.9 - Hypothyroidism, unspecified
[2022-07-09] MEDS ORDERED: ONDANSETRON INJ 2 MG/ML 2 ML VIAL IV PRN (15:46)
[2022-07-09 15:49] LABS: BUN Creatinine Ratio 8.6 (10-20); Calcium 7.9 mg/dl (8.6-10.3); Creatinine Clr Calc Pharmacy 8.9 ml/min; Est GFR (African American) 13.2 ml/min; Est GFR (Non-African American) 11.4 ml/min; Potassium 3.7 mmol/L (3.5-5.1)
[2022-07-09] MEDS: cefTRIAXone SODIUM 2,000 MG in DEXTROSE 5% 50 ML IV SCH (16:23)
[2022-07-09] MEDS: ROSUVASTATIN CALCIUM 10 MG TAB PO SCH (20:12)
[2022-07-10] MEDS ORDERED: ALBUTEROL 0.083% NEBU SOLN 3 ML VIAL NEB ONE (02:14)
[2022-07-10] MEDS: LEVOTHYROXINE SODIUM 25 MCG TABLET PO SCH (05:53)
--- NOTE | 2022-07-10 07:20 | XRay Report ---
XR chest 1V portable HISTORY: 81 years-old Female sob acute shortness of breath COMPARISON: 07/27/2015, CT abdomen and pelvis 07/07/2022. TECHNIQUE: AP view of the chest FINDINGS: Cardiac silhouette is enlarged. Unchanged moderate hemidiaphragmatic elevation. Stable mediastinal pr ominence bilaterally. Interstitial coarsening with trace pleural effusions and mild bibasilar opaciti es. Degenerative changes of the shoulders and spine. IMPRESSION: 1. Cardiomegaly with pulmonary vascular congestion. 2. Trace pleural effusions with mild bibasilar opacities favoring atelectasis. ACT 112: Negative or not required by law. The above report was generated using voice recognition software. It may contain grammatical, syntax o r spelling errors. Electronically signed by: Garrett Marino M.D. 07/10/2022 7:19 AM
[2022-07-10] MEDS: ASPIRIN 81 MG ECTAB PO SCH (08:02)
[2022-07-10 08:42] LABS: Hematocrit (blood only) 30.5 % (37.0-47.0); Hemoglobin 10.1 g/dl (12.0-16.0); Mean Corpuscular Hemoglobin 30.1 pg (25.0-34.0); Mean Corpuscular Hgb Conc 33.1 g/dL (32.0-36.0); Mean Corpuscular Volume 90.8 fL (80.0-100.0); Mean Platelet Volume 9.2 fL (9.4-12.4); Platelet Count 272 K/uL (130-400); RDW Coefficient of Variation 13.2 % (11.5-14.5); RDW Standard Deviation 44.2 fL (36.4-46.3); Red Blood Count 3.36 M/uL (4.20-5.40); White Blood Count 11.38 K/ul (4.8-10.8)
[2022-07-10] MEDS: GABAPENTIN 100 MG CAP PO SCH ×2 (08:59→21:33)
[2022-07-10] MEDS ORDERED: PANTOprazole 40 MG TAB PO SCH (09:00)
[2022-07-10 09:02] LABS: Basophils % (auto) 0.9 %; Eosinophils # (auto) 0.26 K/uL (0-0.50); Eosinophils % (auto) 2.3 %; Immature Granulocytes # (auto) 0.71 K/uL (0.01-0.20); Immature Granulocytes % (auto) 6.2 %; Lymphocytes # (auto) 1.54 K/uL (1.2-3.4); Lymphocytes % (auto) 13.5 %; Monocytes # (auto) 1.11 K/uL (0.11-0.59); Monocytes % (auto) 9.8 %; Neutrophils # (auto) 7.66 K/uL (1.40-6.50); Neutrophils % (auto) 67.3 %; Polychromasia 1+
[2022-07-10 09:14] LABS: BUN Creatinine Ratio 7.5 (10-20); Calcium 8.2 mg/dl (8.6-10.3); Creatinine Clr Calc Pharmacy 8.3 ml/min; Est GFR (African American) 12.2 ml/min; Est GFR (Non-African American) 10.5 ml/min; Potassium 3.7 mmol/L (3.5-5.1)
[2022-07-10] MEDS ORDERED: methylPREDNISolone 500 MG in DEXTROSE 5% 250 ML IV ONE (10:15)
--- NOTE | 2022-07-10 12:48 | Nephrology Progress Note ---
Date of Service July 10, 2022 Assessment & Plan (1) THA (acute kidney injury): Plan: Non-oliguric THA. Creatinine continues to rise. Baseline creatinine 0.7 mg/dL. Electrolytes normal. Volume status acceptable. No indication for TIME STUDY ENGINEER at this time. DDx includes suspected ATN vs AIN. Urine studies support prerenal component associated with dehydration. Volume status now replete. IVF discontinued due to fluid retention. Will start empiric methylprednisolone 500 mg IV today. BID PPI provided. Defer kidney biopsy given no active urine sediment. Medications are currently appropriately dosed for kidney function. Repeat metabolic profile tomorrow this afternoon. Document strict I/O's. (2) Salmonella gastroenteritis: Plan: Clinically improved. Ertapenem converted to ceftriaxone. (3) Allergy to antibiotic: Plan: Avoid fluoroquinolones. Admission and Anticipated Discharge Date Admission Date: July 07, 2022 Subjective No acute events overnight. Sinai feels well. She feels well. Acute dyspnea with wheezing noted overnight. IVF stopped. CXR reviewed. Breathing more comfortably this AM. Edema noted in legs. This is not bothersome to her. Review of Systems Review of Systems: All systems reviewed & are unremarkable except as noted in HPI & below Physical Exam 2 Constitutional: well developed; no acute distress Eyes: no scleral abnormality and no corneal abnormality ENMT: Mouth: oral mucous membranes not dry Neck: normal visual inspection and trachea midline Respiratory: normal respiratory effort Auscultation: + rales (few faint) Cardiovascular: Rate/Rhythm: regular rate Heart Sounds: normal S1 and normal S2 Extremities: + edema Gastrointestinal (Abdomen): Inspection/Auscultation: abdomen normal to inspection and + abdomen distended Percussion/Palpation: abdomen soft; abdomen nontender Musculoskeletal: Extremities: no cyanosis and no clubbing Skin: normal turgor; no lesions Neurologic: Motor/Sensory: no tremor and no asterixis Psychiatric: Orientation: alert and oriented x 3 Results & Data Vital Signs (Past 12 Hours) Vital Signs Temp Pulse Resp BP Pulse Ox O2 Del Method 07/10/22 08:00 Room Air 07/10/22 07:26 37.2 C 55 L 18 166/72 H 95 Room Air 07/10/22 03:54 43 L 18 100 Room Air Laboratory Results Laboratory Results - last 24 hr 07/09/22 07/09/22 07/09/22 15:02 Unknown Unknown WBC RBC Hgb Hct MCV MCH MCHC RDW Std Deviation RDW Coeff of Eduard Plt Count MPV Immature Gran % (Auto) Neut % (Auto) Lymph % (Auto) [place] % (Auto) Eos % (Auto) Baso % (Auto) Neut # (Auto) Lymph # (Auto) [place] # (Auto) Eos # (Auto) Baso # (Auto) Immature Gran # (Auto) Polychromasia Sodium 142 Potassium 3.7 Chloride 113 H Carbon Dioxide 24 Anion Gap 5 BUN 31 H Creatinine 3.60 H Est Cr Clr Drug Dosing 8.9 Est GFR ( Amer) 13.2 Est GFR (Non-Af Amer) 11.4 BUN/Creatinine Ratio 8.6 L Glucose 119 H Calcium 7.9 L Ur Random Creatinine 71.6 Ur Random Sodium 32 07/10/22 07/10/22 08:10 08:10 WBC 11.38 H RBC 3.36 L Hgb 10.1 L Hct 30.5 L MCV 90.8 MCH 30.1 MCHC 33.1 RDW Std Deviation 44.2 RDW Coeff of Eduard 13.2 Plt Count 272 MPV 9.2 L Immature Gran % (Auto) 6.2 Neut % (Auto) 67.3 Lymph % (Auto) 13.5 [place] % (Auto) 9.8 Eos % (Auto) 2.3 Baso % (Auto) 0.9 Neut # (Auto) 7.66 H Lymph # (Auto) 1.54 [place] # (Auto) 1.11 H Eos # (Auto) 0.26 Baso # (Auto) 0.10 Immature Gran # (Auto) 0.71 H Polychromasia 1+ Sodium 143 Potassium 3.7 Chloride 112 H Carbon Dioxide 22 Anion Gap 9 BUN 29 H Creatinine 3.85 H Est Cr Clr Drug Dosing 8.3 Est GFR ( Amer) 12.2 Est GFR (Non-Af Amer) 10.5 BUN/Creatinine Ratio 7.5 L Glucose 102 H Calcium 8.2 L Ur Random Creatinine Ur Random Sodium PG Care Time/CCT Total # of Minutes Spent Total Time Spent with Patient: Total time spent is greater than 50% in coordination of care (as documented) at patient's floor/unit and/or counseling patient: Coding Level of Care Code 30658 SUB INP/OBS CARE 3/50MIN Diagnoses THA (acute kidney injury) N17.9 Salmonella gastroenteritis A02.0 Allergy to antibiotic Z88.1
--- NOTE | 2022-07-10 14:33 | Hospitalist Progress Note ---
Date of Service July 10, 2022 Assessment & Plan (1) THA (acute kidney injury): Plan: Creatinine continues to rise, now 3.8. Parenteral steroid therapy started by nephrology. Appreciate nephrology consultation and recommendations. IV fluids have been tapered down due to pulmonary vascular congestion and shortness of breath. CTAP w/ contrast without evidence of obstruction. Some concern whether CT contrast material has aggravated renal function. (2) Diverticulitis: Plan: With several days of abdominal pain and diarrhea, recently put on Cipro by outside provider, however developed a rash. CTAP with evidence of diverticulitis without evidence of abscess/perforation. Ertapenem has been switched to intravenous Rocephin which has been well-tolerated to date. Serial labs. (3) Salmonella gastroenteritis: Plan: Ertapenem has been switched to intravenous Rocephin. Frequency of stools has decreased . Improving (4) Salmonella food poisoning: Plan: Probably acquired from pork she recently consumed (5) GERD (gastroesophageal reflux disease): Plan: Currently on famotidine (6) Hyperlipidemia: Plan: Holding statin temporarily (7) Hypothyroidism: Plan: Stable. Continue thyroid replacement therapy (8) Anxiety: Plan: Treated with gabapentin. Stable. Plan Anticipate eventual discharge to home. Admission and Anticipated Discharge Date Admission Date: July 07, 2022 Subjective Alert and oriented. No acute distress. Nephrology entry noted. Creatinine is slowly trending upward to 3.8 now. IV fluids have been tapered down. She was complaining of shortness of breath last night and IV fluids were temporarily held. Chest x-ray shows pulmonary vascular congestion but no overt CHF. She is now on parenteral steroid therapy per nephrology Review of Systems Review of Systems: Constitutional-no fever or chills ENT-no blurred vision, no double vision, no epistaxis, no sore throat Respiratory-no cough, no wheezing. Shortness of breath noted last evening Cardiac-no palpitations, no chest pain, no syncope GI-no nausea, vomiting, melena, hematochezia. Frequency of diarrhea stool has decreased -no urinary retention, no urinary incontinence, no dysuria, no hematuria Musculoskeletal-no joint pain, no muscle tenderness Skin-no bruising, no rashes, no pruritus Neuro-no isolated weakness, no paresthesia, no weakness Psych-no depression, no anxiety Physical Exam Physical Exam: General-alert and oriented x3, no fevers, no chills HEENT-head atraumatic and normocephalic, pupils equal and reactive to light, extraocular muscles intact Neck-no lymphadenopathy or thyromegaly, trachea midline Chest-bibasilar rhonchi. No wheezing. Cardiac-regular rate and rhythm, normal S1 and S2 Abdomen-normal bowel sounds, nontender, no hepatosplenomegaly Extremities-no cyanosis, clubbing, or edema Neuro-cranial nerves II through XII intact, motor and sensory function within normal limits, strength symmetrical , no focal deficits Psych-normal affect, normal mood Results & Data Results & Data Vital Signs (Past 12 Hours) Vital Signs Temp Pulse Resp BP Pulse Ox O2 Del Method 07/10/22 08:00 Room Air 07/10/22 07:26 37.2 C 55 L 18 166/72 H 95 Room Air 07/10/22 03:54 43 L 18 100 Room Air Laboratory Results 07/10/22 08:10 07/10/22 08:10 PG Care Time/CCT Total # of Minutes Spent Total Time Spent with Patient: Total time spent is greater than 50% in coordination of care (as documented) at patient's floor/unit and/or counseling patient: Coding Level of Care Code 12573 SUB INP/OBS CARE 3/50MIN Diagnoses THA (acute kidney injury) N17.9 Diverticulitis K57.92 Salmonella gastroenteritis A02.0 Salmonella food poisoning A02.9 GERD (gastroesophageal reflux disease) K21.9 Hyperlipidemia E78.5 Hyperlipidemia type: unspecified Hypothyroidism E03.9 Hypothyroidism type: acquired Anxiety F41.9 (6) Hyperlipidemia Hyperlipidemia type: unspecified Qualified Code(s): E78.5 - Hyperlipidemia, unspecified (7) Hypothyroidism Hypothyroidism type: acquired Qualified Code(s): E03.9 - Hypothyroidism, unspecified
[2022-07-10] MEDS: cefTRIAXone SODIUM 2,000 MG in DEXTROSE 5% 50 ML IV SCH (16:12)
[2022-07-10] MEDS: PLASMA-LYTE A 1,000 ML IV SCH (16:18)
[2022-07-10] MEDS: PANTOprazole 40 MG TAB PO SCH (21:33)
[2022-07-10] MEDS: ROSUVASTATIN CALCIUM 10 MG TAB PO SCH (21:33)
[2022-07-11] MEDS: LEVOTHYROXINE SODIUM 25 MCG TABLET PO SCH (05:23)
[2022-07-11] MEDS: LORazepam 0.5 MG TAB PO PRN ×2 (06:41→20:53)
[2022-07-11] MEDS ORDERED: methylPREDNISolone 1,000 MG in DEXTROSE 5% 250 ML IV SCH (09:00)
[2022-07-11 09:11] LABS: Hemoglobin 10.2 g/dl (12.0-16.0); Mean Corpuscular Hemoglobin 29.7 pg (25.0-34.0); Mean Corpuscular Volume 87.5 fL (80.0-100.0); Mean Platelet Volume 9.5 fL (9.4-12.4); Platelet Count 288 K/uL (130-400); RDW Coefficient of Variation 13.1 % (11.5-14.5); RDW Standard Deviation 41.5 fL (36.4-46.3); Red Blood Count 3.43 M/uL (4.20-5.40)
[2022-07-11] MEDS: ASPIRIN 81 MG ECTAB PO SCH (09:17)
[2022-07-11] MEDS: PANTOprazole 40 MG TAB PO SCH ×2 (09:18→20:51)
[2022-07-11] MEDS: GABAPENTIN 100 MG CAP PO SCH ×2 (09:18→20:51)
[2022-07-11 09:35] LABS: Basophils # (auto) 0.04 K/uL (0-0.2); Basophils % (auto) 0.3 %; Immature Granulocytes # (auto) 1.26 K/uL (0.01-0.20); Immature Granulocytes % (auto) 7.9 %; Lymphocytes # (auto) 0.89 K/uL (1.2-3.4); Lymphocytes % (auto) 5.6 %; Monocytes # (auto) 0.41 K/uL (0.11-0.59); Monocytes % (auto) 2.6 %; Neutrophils % (auto) 83.6 %
[2022-07-11 09:41] LABS: BUN Creatinine Ratio 8.8 (10-20); Calcium 9.1 mg/dl (8.6-10.3); Creatinine Clr Calc Pharmacy 8.5 ml/min; Est GFR (African American) 12.5 ml/min; Est GFR (Non-African American) 10.8 ml/min; Potassium 4.2 mmol/L (3.5-5.1)
--- NOTE | 2022-07-11 10:50 | Nephrology Progress Note ---
Date of Service July 11, 2022 Assessment & Plan (1) THA (acute kidney injury): Plan: Non-oliguric THA. Creatinine starting to plateau. Baseline creatinine 0.7 mg/dL. Electrolytes normal. Volume status acceptable. No indication for VICE PRESIDENT FIXED INCOME at this time. DDx includes suspected ATN vs AIN. Urine studies support prerenal component associated with dehydration. Volume status now replete. IVF discontinued due to fluid retention. No need for diuretics at this time. Maintain low sodium diet. Methylprednisolone 500 mg IV provided yesterday. Sinai tolerated the steroid well. Will provide an additional 1000 mg IV today. BID PPI provided. Medications are currently appropriately dosed for kidney function. Repeat metabolic profile tomorrow AM. Document strict I/O's. (2) Salmonella gastroenteritis: Plan: Remains on ceftriaxone. Reports improved bowel movements. Diet is being advanced to regular today. (3) Allergy to antibiotic: Plan: Avoid fluoroquinolones. Outpatient follow up with Dr. Samaniego. Admission and Anticipated Discharge Date Admission Date: July 07, 2022 Subjective Sinai was seen and evaluated with her at the bedside this AM. Dr. Viigl was present during our conversation. Plan of care was reviewed. Sinai is experiencing anxiety. She noted that she is anxious about the idea of going home. She tolerated IV methylprednisolone well yesterday. Some dyspnea reported and persistent edema. IVF stopped. Edema in BL LE and hands appreciated. Walking in hallways. RN reports excellent activity tolerance. Review of Systems Review of Systems: All systems reviewed & are unremarkable except as noted in HPI & below Physical Exam Constitutional: well developed; no acute distress Eyes: no scleral abnormality and no corneal abnormality ENMT: Mouth: no oral mucosal abnormality and oral mucous membranes not dry Neck: normal visual inspection and trachea midline Respiratory: normal respiratory effort Auscultation: lungs clear to auscultation bilaterally and + rales (few faint) Cardiovascular: Rate/Rhythm: regular rate Heart Sounds: normal S1 and normal S2 Extremities: + pedal edema and + edema Musculoskeletal: Extremities: no cyanosis and no clubbing Skin: normal turgor; no lesions Neurologic: Motor/Sensory: no tremor and no asterixis Psychiatric: Orientation: alert and oriented x 3 Results & Data Vital Signs (Past 12 Hours) Vital Signs Temp Pulse Resp BP Pulse Ox O2 Del Method 07/11/22 07:37 36.4 C L 50 L 16 179/66 H 93 Room Air 07/10/22 23:24 36.4 C L 41 L 18 148/50 H 93 Room Air Laboratory Results Laboratory Results - last 24 hr 07/11/22 07/11/22 08:30 08:30 WBC 16.00 H RBC 3.43 L Hgb 10.2 L Hct 30.0 L MCV 87.5 MCH 29.7 MCHC 34.0 RDW Std Deviation 41.5 RDW Coeff of Eduard 13.1 Plt Count 288 MPV 9.5 Immature Gran % (Auto) 7.9 Neut % (Auto) 83.6 Lymph % (Auto) 5.6 [place] % (Auto) 2.6 Eos % (Auto) 0.0 Baso % (Auto) 0.3 Neut # (Auto) 13.40 H Lymph # (Auto) 0.89 L [place] # (Auto) 0.41 Eos # (Auto) 0.00 Baso # (Auto) 0.04 Immature Gran # (Auto) 1.26 H Sodium 142 Potassium 4.2 Chloride 109 H Carbon Dioxide 23 Anion Gap 10 BUN 33 H Creatinine 3.76 H Est Cr Clr Drug Dosing 8.5 Est GFR ( Amer) 12.5 Est GFR (Non-Af Amer) 10.8 BUN/Creatinine Ratio 8.8 L Glucose 167 H Calcium 9.1 PG Care Time/CCT Total # of Minutes Spent Total Time Spent with Patient: Total time spent is greater than 50% in coordination of care (as documented) at patient's floor/unit and/or counseling patient: Coding Level of Care Code 03949 SUB INP/OBS CARE 3/50MIN Diagnoses THA (acute kidney injury) N17.9 Salmonella gastroenteritis A02.0 Allergy to antibiotic Z88.1
[2022-07-11] MEDS ORDERED: methylPREDNISolone 1,000 MG in DEXTROSE 5% 250 ML IV ONE (11:15)
--- NOTE | 2022-07-11 13:49 | Hospitalist Progress Note ---
Date of Service July 11, 2022 Assessment & Plan (1) THA (acute kidney injury): Plan: Creatinine appears now to have stabilized. Hopefully it will start to trend downward. Parenteral steroid therapy started by nephrology. Appreciate nephrology consultation and recommendations. IV fluids have been discontinued. CTAP w/ contrast without evidence of post- renal obstruction. Some concern whether CT contrast material has aggravated renal function. (2) Diverticulitis: Plan: With several days of abdominal pain and diarrhea, recently put on Cipro by outside provider, however developed a rash. CTAP with evidence of diverticulitis without evidence of abscess/perforation. Ertapenem has been switched to intravenous Rocephin which has been well-tolerated to date. Serial labs. (3) Salmonella gastroenteritis: Plan: Ertapenem has been switched to intravenous Rocephin. Frequency of stools has decreased . Improving (4) Salmonella food poisoning: Plan: Probably acquired from pork she recently consumed (5) GERD (gastroesophageal reflux disease): Plan: Currently on famotidine (6) Hyperlipidemia: Plan: Holding statin temporarily (7) Hypothyroidism: Plan: Stable. Continue thyroid replacement therapy (8) Anxiety: Plan: Treated with gabapentin. Stable. Plan Anticipate eventual discharge to home. Admission and Anticipated Discharge Date Admission Date: July 07, 2022 Subjective Alert and oriented. No new problems. Creatinine appears to have stabilized around 3.73.8. Diet advanced to regular diet. IV fluids have been discontinued. Case discussed with nephrology. She remains on intravenous Rocephin for Salmonella. Day 3. Review of Systems Review of Systems: Constitutional-no fever or chills ENT-no blurred vision, no double vision, no epistaxis, no sore throat Respiratory-no cough, no wheezing. Shortness of breath noted last evening Cardiac-no palpitations, no chest pain, no syncope GI-no nausea, vomiting, melena, hematochezia. Frequency of diarrhea stool has decreased -no urinary retention, no urinary incontinence, no dysuria, no hematuria Musculoskeletal-no joint pain, no muscle tenderness Skin-no bruising, no rashes, no pruritus Neuro-no isolated weakness, no paresthesia, no weakness Psych-no depression, no anxiety Physical Exam Physical Exam: General-alert and oriented x3, no fevers, no chills HEENT-head atraumatic and normocephalic, pupils equal and reactive to light, extraocular muscles intact Neck-no lymphadenopathy or thyromegaly, trachea midline Chest-bibasilar rhonchi. No wheezing. Cardiac-regular rate and rhythm, normal S1 and S2 Abdomen-normal bowel sounds, nontender, no hepatosplenomegaly Extremities-no cyanosis, clubbing, or edema Neuro-cranial nerves II through XII intact, motor and sensory function within normal limits, strength symmetrical , no focal deficits Psych-normal affect, normal mood Results & Data Results & Data Vital Signs (Past 12 Hours) Vital Signs Temp Pulse Resp BP Pulse Ox O2 Del Method 07/11/22 07:37 36.4 C L 50 L 16 179/66 H 93 Room Air PG Care Time/CCT Total # of Minutes Spent Total Time Spent with Patient: Total time spent is greater than 50% in coordination of care (as documented) at patient's floor/unit and/or counseling patient: Coding Level of Care Code 01019 SUB INP/OBS CARE 3/50MIN Diagnoses THA (acute kidney injury) N17.9 Diverticulitis K57.92 Salmonella gastroenteritis A02.0 Salmonella food poisoning A02.9 GERD (gastroesophageal reflux disease) K21.9 Hyperlipidemia E78.5 Hyperlipidemia type: unspecified Hypothyroidism E03.9 Hypothyroidism type: acquired Anxiety F41.9 (6) Hyperlipidemia Hyperlipidemia type: unspecified Qualified Code(s): E78.5 - Hyperlipidemia, unspecified (7) Hypothyroidism Hypothyroidism type: acquired Qualified Code(s): E03.9 - Hypothyroidism, unspecified
[2022-07-11] MEDS: cefTRIAXone SODIUM 2,000 MG in DEXTROSE 5% 50 ML IV SCH (16:15)
[2022-07-11] MEDS: ROSUVASTATIN CALCIUM 10 MG TAB PO SCH (20:51)
[2022-07-11] MEDS: MELATONIN 3 MG TAB PO PRN (20:53)
[2022-07-12] MEDS: LEVOTHYROXINE SODIUM 25 MCG TABLET PO SCH (05:58)
[2022-07-12 08:08] LABS: Hematocrit (blood only) 30.9 % (37.0-47.0); Hemoglobin 10.5 g/dl (12.0-16.0); Mean Corpuscular Hemoglobin 30.2 pg (25.0-34.0); Mean Corpuscular Volume 88.8 fL (80.0-100.0); Mean Platelet Volume 9.9 fL (9.4-12.4); Platelet Count 332 K/uL (130-400); RDW Coefficient of Variation 13.3 % (11.5-14.5); RDW Standard Deviation 43.1 fL (36.4-46.3); Red Blood Count 3.48 M/uL (4.20-5.40); White Blood Count 20.13 K/ul (4.8-10.8)
[2022-07-12 08:30] LABS: Basophils # (auto) 0.05 K/uL (0-0.2); Basophils % (auto) 0.2 %; Eosinophils # (auto) 0.01 K/uL (0-0.50); Immature Granulocytes # (auto) 1.49 K/uL (0.01-0.20); Immature Granulocytes % (auto) 7.4 %; Lymphocytes # (auto) 0.84 K/uL (1.2-3.4); Lymphocytes % (auto) 4.2 %; Monocytes # (auto) 0.63 K/uL (0.11-0.59); Monocytes % (auto) 3.1 %; Neutrophils # (auto) 17.11 K/uL (1.40-6.50); Neutrophils % (auto) 85.1 %; Polychromasia 1+
[2022-07-12 08:33] LABS: Calcium 9.1 mg/dl (8.6-10.3); Est GFR (African American) 11.6 ml/min; Potassium 4.5 mmol/L (3.5-5.1)
[2022-07-12] MEDS ORDERED: hydrALAZINE HCL 20 MG/ML VIAL IV STA (08:46)
[2022-07-12] MEDS ORDERED: SODIUM CHLORIDE 0.9% 1000ML 1,000 ML IV SCH (09:00)
[2022-07-12] MEDS: PANTOprazole 40 MG TAB PO SCH ×2 (09:27→20:21)
[2022-07-12] MEDS: ASPIRIN 81 MG ECTAB PO SCH (09:27)
[2022-07-12] MEDS: GABAPENTIN 100 MG CAP PO SCH ×2 (09:27→20:21)
--- NOTE | 2022-07-12 10:11 | Nephrology Progress Note ---
Date of Service July 12, 2022 Assessment & Plan (1) THA (acute kidney injury): Plan: Non-oliguric THA. Creatinine relatively stable but not improved at 3.99 mg/dL. Baseline creatinine 0.7 mg/dL. Electrolytes normal. Volume status slightly hypervolemic. Avoid additional IVF. No need for diuretics. Maintain low sodium diet. DDx suspected ATN vs AIN. Urine studies support prerenal component associated with dehydration. Repeat UA/microscopy requested today. Methylprednisolone 1000 mg IV today. Day #3 of IV steroids. Plan to transition to PO prednisone tomorrow. BID PPI provided. Medications are currently appropriately dosed for kidney function. Repeat metabolic profile tomorrow AM. Document strict I/O's. (2) Salmonella gastroenteritis: Plan: Remains on ceftriaxone. Reports improved bowel movements. (3) Allergy to antibiotic: Plan: Avoid fluoroquinolones. Outpatient follow up with Dr. Samaniego. I discussed the recent clinical course with Dr. Samaniego yesterday. (4) Hypertension: Plan: BP elevated in the setting of aggressive IVF and THA. Asymptomatic. IV hydralazine provided this AM. I will add a low dose of amlodipine now. To help with associated LE edema, compression stocking use encouraged. Admission and Anticipated Discharge Date Admission Date: July 07, 2022 Subjective No acute events overnight. Some mild dyspnea persists. Persistent fluid retention. Denies chest pain or palpitations. No lightheadedness, dizziness, syncope, or presyncope. Understandable anxiety. Sinai feels reasonably well [facility]. She has concerns about potential discharge home. She feels that transition to a rehab facility may be beneficial. [place] She expressed concerns about returning home while recovering. She is tolerating steroids well. No fevers or chills. No diarrhea or abdominal pain. Review of Systems Review of Systems: All systems reviewed & are unremarkable except as noted in HPI & below Physical Exam Constitutional: well developed; no acute distress Eyes: no scleral abnormality and no corneal abnormality ENMT: Mouth: no oral mucosal abnormality and oral mucous membranes not dry Neck: normal visual inspection and trachea midline Respiratory: normal respiratory effort Auscultation: lungs clear to auscultation bilaterally and + rales (few faint) Cardiovascular: Rate/Rhythm: regular rate Heart Sounds: normal S1 and normal S2 Extremities: + pedal edema, + edema and + varicosities Gastrointestinal (Abdomen): Inspection/Auscultation: abdomen normal to inspection and + abdomen distended Percussion/Palpation: abdomen soft; abdomen nontender Musculoskeletal: Extremities: no cyanosis and no clubbing Skin: normal turgor; no lesions Neurologic: Motor/Sensory: no tremor and no asterixis Psychiatric: Orientation: alert and oriented x 3 Results & Data Vital Signs (Past 12 Hours) Vital Signs Temp Pulse Resp BP Pulse Ox O2 Del Method 07/12/22 08:06 36.3 C L 43 L 18 191/67 H 94 Room Air 07/11/22 22:16 36.5 C 44 L 16 173/84 H 96 Room Air Laboratory Results Laboratory Results - last 24 hr 07/12/22 07/12/22 06:55 06:55 WBC 20.13 H RBC 3.48 L Hgb 10.5 L Hct 30.9 L MCV 88.8 MCH 30.2 MCHC 34.0 RDW Std Deviation 43.1 RDW Coeff of Eduard 13.3 Plt Count 332 MPV 9.9 Immature Gran % (Auto) 7.4 Neut % (Auto) 85.1 Lymph % (Auto) 4.2 Custer % (Auto) 3.1 Eos % (Auto) 0.0 Baso % (Auto) 0.2 Neut # (Auto) 17.11 H Lymph # (Auto) 0.84 L Custer # (Auto) 0.63 H Eos # (Auto) 0.01 Baso # (Auto) 0.05 Immature Gran # (Auto) 1.49 H Polychromasia 1+ Sodium 142 Potassium 4.5 Chloride 109 H Carbon Dioxide 22 Anion Gap 11 BUN 48 H Creatinine 3.99 H Est Cr Clr Drug Dosing 8.0 Est GFR ( Amer) 11.6 Est GFR (Non-Af Amer) 10.0 BUN/Creatinine Ratio 12.0 Glucose 210 H Calcium 9.1 PG Care Time/CCT Total # of Minutes Spent Total Time Spent with Patient: Total time spent is greater than 50% in coordination of care (as documented) at patient's floor/unit and/or counseling patient: Coding Level of Care Code 24936 SUB INP/OBS CARE 3/50MIN Diagnoses THA (acute kidney injury) N17.9 Salmonella gastroenteritis A02.0 Allergy to antibiotic Z88.1 Hypertension I10
[2022-07-12] MEDS ORDERED: methylPREDNISolone 1,000 MG in DEXTROSE 5% 250 ML IV STA (10:12)
[2022-07-12 11:14] LABS: Appearance Urine Clear (Clear); Bacteria Urine Automated Negative (Negative); Bilirubin Urine Negative (Negative); Blood Urine Negative (Negative); Color Urine Yellow; Epithelial Cell Urine Auto >30 /lpf (0-5); Glucose Urine UA Negative (Negative); Ketones Urine Negative (Negative); Leukocyte Esterase Urine Negative (Negative); Nitrite Urine Negative (Negative); Protein Urine 1+ (Negative); RBC Urine Automated 0-4 /hpf (0-4); Urobilinogen Urine Negative (Negative)
[2022-07-12] MEDS: amLODIPine BESYLATE 5 MG TAB PO SCH (12:16)
--- NOTE | 2022-07-12 14:31 | XRay Report ---
XR chest 1V portable HISTORY: 81 years-old Female dyspnea acute shortness of breath COMPARISON: 07/10/2022 TECHNIQUE: AP view of the chest FINDINGS: Cardiac silhouette is enlarged. Unchanged right hemidiaphragmatic elevation. Stable mediastinal promi nence bilaterally. Interstitial coarsening with trace pleural effusions and mild bibasilar opacities. Degenerative changes of the shoulders and spine. A surgical clip projects over the abdominal right u pper quadrant. IMPRESSION: 1. Cardiomegaly with pulmonary vascular congestion. 2. Trace pleural effusions with mild bibasilar opacities favoring atelectasis. ACT 112: Negative or not required by law. The above report was generated using voice recognition software. It may contain grammatical, syntax o r spelling errors. Electronically signed by: Garrett Marino M.D. 07/12/2022 2:30 PM
[2022-07-12] MEDS: cefTRIAXone SODIUM 2,000 MG in DEXTROSE 5% 50 ML IV SCH (16:47)
--- NOTE | 2022-07-12 16:48 | Hospitalist Progress Note ---
Date of Service July 12, 2022 Assessment & Plan (1) THA (acute kidney injury): Plan: Creatinine has increased further to 3.9. Parenteral steroid therapy underway per nephrology. Appreciate nephrology consultation and recommendations. CTAP w/ contrast without evidence of post- renal obstruction. Some concern whether CT contrast material has aggravated renal function. (2) Diverticulitis: Plan: With several days of abdominal pain and diarrhea, recently put on Cipro by outside provider, however developed a rash. CTAP with evidence of diverticulitis without evidence of abscess/perforation. Ertapenem has been switched to intravenous Rocephin which has been well-tolerated to date. Rocephin day 4. Serial labs. (3) Salmonella gastroenteritis: Plan: Ertapenem has been switched to intravenous Rocephin. Frequency of stools has decreased . Improving (4) Salmonella food poisoning: Plan: Probably acquired from pork she recently consumed (5) GERD (gastroesophageal reflux disease): Plan: Currently on famotidine (6) Hyperlipidemia: Plan: Holding statin temporarily (7) Hypothyroidism: Plan: Stable. Continue thyroid replacement therapy (8) Anxiety: Plan: Treated with gabapentin. Stable. Plan She probably will need SNF placement temporarily at discharge. OT and PT assessments requested. Admission and Anticipated Discharge Date Admission Date: July 07, 2022 Subjective Alert and oriented. She appears short of breath at rest but portable chest x- ray today does not reveal any signs of congestive heart failure. She probably will need SNF placement temporarily at discharge. OT and PT assessments requested. Amlodipine started for hypertension. We will use IV hydralazine as needed. Creatinine has increased further today to 3.9. She remains on intravenous Rocephin, day 4, for the Salmonella enteritis. Review of Systems Review of Systems: Constitutional-no fever or chills ENT-no blurred vision, no double vision, no epistaxis, no sore throat Respiratory-no cough, no wheezing. Shortness of breath at rest Cardiac-no palpitations, no chest pain, no syncope GI-no nausea, vomiting, melena, hematochezia. Frequency of diarrhea stool has decreased -no urinary retention, no urinary incontinence, no dysuria, no hematuria Musculoskeletal-no joint pain, no muscle tenderness Skin-no bruising, no rashes, no pruritus Neuro-no isolated weakness, no paresthesia, no weakness Psych-no depression, no anxiety Physical Exam Physical Exam: General-alert and oriented x3, no fevers, no chills HEENT-head atraumatic and normocephalic, pupils equal and reactive to light, extraocular muscles intact Neck-no lymphadenopathy or thyromegaly, trachea midline Chest-no rales wheezing or rhonchi. She is mildly tachypneic. Cardiac-regular rate and rhythm, normal S1 and S2 Abdomen-normal bowel sounds, nontender, no hepatosplenomegaly Extremities-no cyanosis, clubbing, or edema Neuro-cranial nerves II through XII intact, motor and sensory function within normal limits, strength symmetrical , no focal deficits Psych-normal affect, normal mood Results & Data Results & Data Vital Signs (Past 12 Hours) Vital Signs Temp Pulse Resp BP Pulse Ox O2 Del Method 07/12/22 15:09 36.4 C L 55 L 18 181/74 H 96 Room Air 07/12/22 12:00 143/63 H 07/12/22 08:06 36.3 C L 43 L 18 191/67 H 94 Room Air Laboratory Results 07/12/22 06:55 07/12/22 06:55 PG Care Time/CCT Total # of Minutes Spent Total Time Spent with Patient: Total time spent is greater than 50% in coordination of care (as documented) at patient's floor/unit and/or counseling patient: Coding Level of Care Code 07376 SUB INP/OBS CARE 3/50MIN Diagnoses THA (acute kidney injury) N17.9 Diverticulitis K57.92 Salmonella gastroenteritis A02.0 Salmonella food poisoning A02.9 GERD (gastroesophageal reflux disease) K21.9 Hyperlipidemia E78.5 Hyperlipidemia type: unspecified Hypothyroidism E03.9 Hypothyroidism type: acquired Anxiety F41.9 (6) Hyperlipidemia Hyperlipidemia type: unspecified Qualified Code(s): E78.5 - Hyperlipidemia, unspecified (7) Hypothyroidism Hypothyroidism type: acquired Qualified Code(s): E03.9 - Hypothyroidism, unspecified
[2022-07-12] MEDS: MELATONIN 3 MG TAB PO PRN (20:21)
[2022-07-12] MEDS: ROSUVASTATIN CALCIUM 10 MG TAB PO SCH (20:22)
[2022-07-12] MEDS: hydrALAZINE HCL 20 MG/ML VIAL IV PRN (21:41)
[2022-07-13] MEDS: LEVOTHYROXINE SODIUM 25 MCG TABLET PO SCH (06:35)
[2022-07-13 07:35] LABS: Hematocrit (blood only) 28.5 % (37.0-47.0); Hemoglobin 9.6 g/dl (12.0-16.0); Mean Corpuscular Hemoglobin 29.8 pg (25.0-34.0); Mean Corpuscular Hgb Conc 33.7 g/dL (32.0-36.0); Mean Corpuscular Volume 88.5 fL (80.0-100.0); Mean Platelet Volume 10.1 fL (9.4-12.4); Platelet Count 305 K/uL (130-400); RDW Coefficient of Variation 13.5 % (11.5-14.5); RDW Standard Deviation 43.8 fL (36.4-46.3); Red Blood Count 3.22 M/uL (4.20-5.40); White Blood Count 24.53 K/ul (4.8-10.8)
[2022-07-13 07:55] LABS: Albumin Level 3.3 gm/dl (3.4-5.0); BUN Creatinine Ratio 15.8 (10-20); Calcium 8.8 mg/dl (8.6-10.3); Creatinine Clr Calc Pharmacy 8.6 ml/min; Est GFR (African American) 12.6 ml/min; Est GFR (Non-African American) 10.9 ml/min; Phosphorus 5.1 mg/dl (2.5-4.9)
[2022-07-13] MEDS: amLODIPine BESYLATE 5 MG TAB PO SCH (08:33)
[2022-07-13] MEDS: PANTOprazole 40 MG TAB PO SCH ×2 (08:33→20:11)
[2022-07-13] MEDS: GABAPENTIN 100 MG CAP PO SCH ×2 (08:33→20:11)
[2022-07-13] MEDS: ASPIRIN 81 MG ECTAB PO SCH (08:34)
--- NOTE | 2022-07-13 09:58 | Nephrology Progress Note ---
Date of Service July 13, 2022 Assessment & Plan (1) THA (acute kidney injury): Plan: Creatinine stable at 3.73 mg/dL. Baseline creatinine 0.7 mg/dL. Electrolytes normal. Volume status acceptable though slightly hypervolemic. Maintain low sodium diet. Diuretics held. Anticipate improvement in volume status as kidney function improves. DDx suspected ATN vs AIN. Repeat UA/microscopy bland and acellular. Completed 3 days of IV methylprednisolone. Start PO prednisone 50 mg daily today. Plan to continue 1 mg/kg for 1-2 weeks prior to starting taper of 10 mg every 3-7 days. Continue PPI. Medications are currently appropriately dosed for kidney function. Repeat metabolic profile tomorrow AM. Document strict I/O's. (2) Salmonella gastroenteritis: Plan: Remains on ceftriaxone. (3) Allergy to antibiotic: Plan: Avoid fluoroquinolones. Outpatient follow up with Dr. Samaniego. I discussed the recent clinical course with Dr. Samaniego. Cipro added to list of drug allergies and should be avoided pending follow up with Allergy/Immunology. (4) Hypertension: Plan: Fluid retention in setting of aggressive IVF and THA. IV hydralazine provided PRN. Amlodipine 2.5 mg daily started yesterday. Increase to 5 mg daily as needed. To help with associated LE edema, compression stocking use encouraged. Maintain low sodium diet. Admission and Anticipated Discharge Date Admission Date: July 07, 2022 Subjective No acute events overnight. Sinai was resting comfortably in bed this morning with her at the bedside. She feels well. Dyspnea improved. Edema improving with compression stocking use. No fevers or chills. Tolerating regular diet. No persistent GI symptoms reported. Ambulating in hallway but admits to some weakness. Feels that she may require some rehabilitation prior to return home. PT/OT assessments pending. Review of Systems Review of Systems: All systems reviewed & are unremarkable except as noted in HPI & below Physical Exam Constitutional: well developed; no acute distress Eyes: no scleral abnormality and no corneal abnormality Neck: normal visual inspection and trachea midline Respiratory: normal respiratory effort Auscultation: lungs clear to auscultation bilaterally and + rales (few faint) Cardiovascular: Rate/Rhythm: regular rate Heart Sounds: normal S1 and normal S2 Extremities: + edema Gastrointestinal (Abdomen): Inspection/Auscultation: abdomen normal to inspection and + abdomen distended Percussion/Palpation: abdomen soft; abdomen nontender Musculoskeletal: Extremities: no cyanosis and no clubbing Skin: normal turgor; no lesions Neurologic: Motor/Sensory: no tremor and no asterixis Psychiatric: Orientation: alert and oriented x 3 Results & Data Vital Signs (Past 12 Hours) Vital Signs Temp Pulse Resp BP BP Pulse Ox O2 Del Method 07/13/22 07:25 36.4 C L 48 L 16 165/74 H 94 Room Air 07/13/22 06:00 44 L 20 171/67 H 95 Room Air 07/12/22 23:10 58 L 159/70 H Laboratory Results Laboratory Results - last 24 hr 07/12/22 07/13/22 07/13/22 10:33 06:34 06:34 WBC 24.53 H RBC 3.22 L Hgb 9.6 L Hct 28.5 L MCV 88.5 MCH 29.8 MCHC 33.7 RDW Std Deviation 43.8 RDW Coeff of Eduard 13.5 Plt Count 305 MPV 10.1 Sodium 141 Potassium 4.0 Chloride 108 H Carbon Dioxide 23 Anion Gap 10 BUN 59 H Creatinine 3.73 H Est Cr Clr Drug Dosing 8.6 Est GFR ( Amer) 12.6 Est GFR (Non-Af Amer) 10.9 BUN/Creatinine Ratio 15.8 Glucose 236 H Calcium 8.8 Phosphorus 5.1 H Albumin 3.3 L Urine Color Yellow Urine Appearance Clear Urine pH 5.0 Ur Specific Coy 1.010 Urine Protein 1+ H Urine Glucose (UA) Negative Urine Ketones Negative Urine Blood Negative Urine Nitrite Negative Urine Bilirubin Negative Urine Urobilinogen Negative Ur Leukocyte Esterase Negative Urine WBC (Auto) 1-5 Urine RBC (Auto) 0-4 U Hyaline Cast (Auto) 1-5 U Epithel Cells (Auto) >30 H Urine Bacteria (Auto) Negative Diagnostic Findings XR chest 1V portable FINDINGS: Cardiac silhouette is enlarged. Unchanged right hemidiaphragmatic elevation. Stable mediastinal prominence bilaterally. Interstitial coarsening with trace pleural effusions and mild bibasilar opacities. Degenerative changes of the shoulders and spine. A surgical clip projects over the abdominal right upper quadrant. IMPRESSION: 1. Cardiomegaly with pulmonary vascular congestion. 2. Trace pleural effusions with mild bibasilar opacities favoring atelectasis. PG Care Time/CCT Total # of Minutes Spent Total Time Spent with Patient: Total time spent is greater than 50% in coordination of care (as documented) at patient's floor/unit and/or counseling patient: Coding Level of Care Code 39067 SUB INP/OBS CARE 3/50MIN Diagnoses THA (acute kidney injury) N17.9 Salmonella gastroenteritis A02.0 Allergy to antibiotic Z88.1 Hypertension I10
[2022-07-13] MEDS: predniSONE 50 MG TAB PO SCH (11:49)
--- NOTE | 2022-07-13 15:53 | Hospitalist Progress Note ---
Date of Service July 13, 2022 Assessment & Plan (1) THA (acute kidney injury): Plan: Creatinine 3.7 today, down from 3.9 yesterday. Parenteral steroid therapy switched to oral route per nephrology today, July 13. Appreciate nephrology consultation and recommendations. CTAP w/ contrast without evidence of post- renal obstruction. Some concern whether CT contrast material has aggravated renal function. (2) Diverticulitis: Plan: With several days of abdominal pain and diarrhea, recently put on Cipro by outside provider, however developed a rash. CTAP with evidence of diverticulitis without evidence of abscess/perforation. Ertapenem has been switched to intravenous Rocephin which has been well-tolerated to date. Rocephin day 5. Serial labs. (3) Salmonella gastroenteritis: Plan: Ertapenem has been switched to intravenous Rocephin. Frequency of stools has decreased . Improving (4) Salmonella food poisoning: Plan: Probably acquired from pork she recently consumed (5) GERD (gastroesophageal reflux disease): Plan: Currently on famotidine (6) Hyperlipidemia: Plan: Holding statin temporarily (7) Hypothyroidism: Plan: Stable. Continue thyroid replacement therapy (8) Anxiety: Plan: Treated with gabapentin. Stable. (9) Hypertension: Plan: Improved with amlodipine started this admission. Will use IV hydralazine as needed Plan Hopefully home soon on oral prednisone therapy and amlodipine if creatinine continues to improve. She does not need SNF placement. Admission and Anticipated Discharge Date Admission Date: July 07, 2022 Subjective Alert and pleasant. She is ambulating in the hallway without assistance. OT and PT assessments reviewed. No need for SNF at discharge. Creatinine 3.7 today, down from 3.9 yesterday. She remains on steroid therapy. Rocephin day 5 for Salmonella isolated in the stool. Hopefully she can go home soon on prednisone therapy. Blood pressure is better with amlodipine. Review of Systems Review of Systems: Constitutional-no fever or chills ENT-no blurred vision, no double vision, no epistaxis, no sore throat Respiratory-no cough, no wheezing. Shortness of breath at rest Cardiac-no palpitations, no chest pain, no syncope GI-no nausea, vomiting, melena, hematochezia. Frequency of diarrhea stool has decreased -no urinary retention, no urinary incontinence, no dysuria, no hematuria Musculoskeletal-no joint pain, no muscle tenderness Skin-no bruising, no rashes, no pruritus Neuro-no isolated weakness, no paresthesia, no weakness Psych-no depression, no anxiety Physical Exam Physical Exam: General-alert and oriented x3, no fevers, no chills HEENT-head atraumatic and normocephalic, pupils equal and reactive to light, extraocular muscles intact Neck-no lymphadenopathy or thyromegaly, trachea midline Chest-no rales wheezing or rhonchi. She is mildly tachypneic. Cardiac-regular rate and rhythm, normal S1 and S2 Abdomen-normal bowel sounds, nontender, no hepatosplenomegaly Extremities-no cyanosis, clubbing, or edema Neuro-cranial nerves II through XII intact, motor and sensory function within normal limits, strength symmetrical , no focal deficits Psych-normal affect, normal mood Results & Data Results & Data Vital Signs (Past 12 Hours) Vital Signs Temp Pulse Resp BP Pulse Ox O2 Del Method 07/13/22 15:18 36.4 C L 49 L 18 177/74 H 93 Room Air 07/13/22 07:25 36.4 C L 48 L 16 165/74 H 94 Room Air 07/13/22 06:00 44 L 20 171/67 H 95 Room Air Laboratory Results 07/13/22 06:34 07/13/22 06:34 PG Care Time/CCT Total # of Minutes Spent Total Time Spent with Patient: Total time spent is greater than 50% in coordination of care (as documented) at patient's floor/unit and/or counseling patient: Coding Level of Care Code 49736 SUB INP/OBS CARE 2/35MIN Diagnoses THA (acute kidney injury) N17.9 Diverticulitis K57.92 Salmonella gastroenteritis A02.0 Salmonella food poisoning A02.9 GERD (gastroesophageal reflux disease) K21.9 Hyperlipidemia E78.5 Hyperlipidemia type: unspecified Hypothyroidism E03.9 Hypothyroidism type: acquired Anxiety F41.9 Hypertension I10 (6) Hyperlipidemia Hyperlipidemia type: unspecified Qualified Code(s): E78.5 - Hyperlipidemia, unspecified (7) Hypothyroidism Hypothyroidism type: acquired Qualified Code(s): E03.9 - Hypothyroidism, unspecified
[2022-07-13] MEDS: cefTRIAXone SODIUM 2,000 MG in DEXTROSE 5% 50 ML IV SCH (17:03)
[2022-07-13] MEDS: ROSUVASTATIN CALCIUM 10 MG TAB PO SCH (20:11)
[2022-07-14] MEDS: LEVOTHYROXINE SODIUM 25 MCG TABLET PO SCH (06:22)
[2022-07-14 06:52] LABS: Calcium 8.7 mg/dl (8.6-10.3); Creatinine Clr Calc Pharmacy 9.8 ml/min; Est GFR (African American) 14.8 ml/min; Est GFR (Non-African American) 12.7 ml/min; Potassium 4.1 mmol/L (3.5-5.1)
--- NOTE | 2022-07-14 08:54 | Nephrology Progress Note ---
Date of Service July 14, 2022 Assessment & Plan (1) THA (acute kidney injury): Plan: * THA likely AIN related to recent antibiotic therapy * Cr has improved from 3.9 to 3.3. Volume status and electrolyte balance remain acceptable * Completed Solumedrol 1g daily x3d. Transitioned to Prednisone 50 mg daily 07/13/22 * Plan to continue Prednisone 50 mg daily for 1-2 weeks, then taper by 10 mg every 3-7 days * Continue PPI while on steroid therapy * Monitor PRP, UO, volume status (2) Salmonella gastroenteritis: Plan: * Remains on ceftriaxone * Reports diarrhea has resolved (3) Allergy to antibiotic: Plan: * Avoid fluoroquinolones. Outpatient follow up with Dr. Samaniego * Cipro has been added to list of drug allergies and should be avoided pending follow up with Allergy/Immunology (4) Hypertension: Plan: * Fluid retention in setting of aggressive IVF and THA * Agree w/ primary service increasing Amlodipine to 5 mg po daily Admission and Anticipated Discharge Date Admission Date: July 07, 2022 Subjective Mrs. Bell was evaluated in her hospital room this morning. She denied fever, flank pain, skin rash or hematuria. Diarrhea has resolved. Mrs. Bell voiced no new medical concerns Review of Systems Constitutional: no fever Eyes: no problem reported Ear, Nose, Mouth, Throat: no problem reported Respiratory: no dyspnea Cardiovascular: no chest pain Gastrointestinal: no abdominal pain, no vomiting and no diarrhea/loose stools Genitourinary: no dysuria and no hematuria Physical Exam Constitutional: not in distress Eyes: PERRL, conjunctivae normal, anicteric sclerae ENMT: external ear and nose normal, oropharynx normal Neck: trachea midline, no thyromegaly Respiratory: normal respiratory effort, lungs clear to auscultation Cardiovascular: RRR, no murmur, no edema Gastrointestinal (Abdomen): normal bowel sounds, soft, nontender, no hepatosplenomegaly Skin: no rashes, warm and dry Neurologic: Speech / Cognition: normal speech and normal cognition Results & Data Vital Signs (Past 12 Hours) Vital Signs Temp Pulse Resp BP Pulse Ox O2 Del Method 07/14/22 01:05 95 Room Air 07/14/22 01:05 Room Air 07/13/22 22:01 36.4 C L 42 L 16 160/59 H 94 Room Air Laboratory Results Laboratory Tests 07/12/22 07/13/22 07/14/22 06:55 06:34 05:56 Sodium 141 Potassium 4.1 Chloride 109 H Carbon Dioxide 22 BUN 69 H Creatinine 3.99 H 3.73 H 3.28 H D Glucose 231 H PG Care Time/CCT Total # of Minutes Spent Total Time Spent with Patient: Total time spent is greater than 50% in coordination of care (as documented) at patient's floor/unit and/or counseling patient: Coding Level of Care Code 71985 SUB INP/OBS CARE 3/50MIN Diagnoses THA (acute kidney injury) N17.9 Salmonella gastroenteritis A02.0 Allergy to antibiotic Z88.1 Hypertension I10
[2022-07-14] MEDS: ASPIRIN 81 MG ECTAB PO SCH (09:50)
[2022-07-14] MEDS: GABAPENTIN 100 MG CAP PO SCH ×2 (09:50→20:37)
[2022-07-14] MEDS: PANTOprazole 40 MG TAB PO SCH ×2 (09:51→20:37)
[2022-07-14] MEDS: predniSONE 50 MG TAB PO SCH (09:51)
[2022-07-14] MEDS: amLODIPine BESYLATE 5 MG TAB PO SCH ×2 (09:52→10:16)
--- NOTE | 2022-07-14 14:27 | Hospitalist Progress Note ---
Date of Service July 14, 2022 Assessment & Plan (1) THA (acute kidney injury): Plan: Creatinine improved to 3.2 today, July 14. Hopefully she has turned the corner and the creatinine level will continue to drop down to normal levels eventually. Parenteral steroid therapy switched to oral route per nephrology on July 13. Appreciate nephrology consultation and recommendations. CTAP w/ contrast without evidence of post- renal obstruction. Some concern whether CT contrast material has aggravated renal function. (2) Diverticulitis: Plan: With several days of abdominal pain and diarrhea, recently put on Cipro by outside provider, however developed a rash. CTAP with evidence of diverticulitis without evidence of abscess/perforation. Ertapenem has been switched to intravenous Rocephin which has been well-tolerated to date. Rocephin day 6. She will not need any further antibiotic therapy at the time of discharge. (3) Salmonella gastroenteritis: Plan: Ertapenem has been switched to intravenous Rocephin. Frequency of stools has decreased . Improving (4) Salmonella food poisoning: Plan: Probably acquired from pork she recently consumed (5) GERD (gastroesophageal reflux disease): Plan: Currently on famotidine (6) Hyperlipidemia: Plan: Holding statin temporarily (7) Hypothyroidism: Plan: Stable. Continue thyroid replacement therapy (8) Anxiety: Plan: Treated with gabapentin. Stable. (9) Hypertension: Plan: Amlodipine dosage uptitrated today, July 14. Will use IV hydralazine as needed Plan Hopefully home tomorrow, July 15, soon on oral prednisone therapy 50 mg/day and amlodipine if creatinine continues to improve. She does not need SNF placement. Admission and Anticipated Discharge Date Admission Date: July 07, 2022 Subjective Alert and oriented. Stable overall. Creatinine improved to 3.2. Amlodipine do alejandra uptitrated for better blood pressure control. Nephrology entry noted. Rocephin day 6. She probably will not need any more antibiotics at the time of discharge, hopefully tomorrow on prednisone 50 mg daily which will be tapered down as an outpatient Review of Systems Review of Systems: Constitutional-no fever or chills ENT-no blurred vision, no double vision, no epistaxis, no sore throat Respiratory-no cough, no wheezing. Shortness of breath at rest Cardiac-no palpitations, no chest pain, no syncope GI-no nausea, vomiting, melena, hematochezia. Frequency of diarrhea stool has decreased -no urinary retention, no urinary incontinence, no dysuria, no hematuria Musculoskeletal-no joint pain, no muscle tenderness Skin-no bruising, no rashes, no pruritus Neuro-no isolated weakness, no paresthesia, no weakness Psych-no depression, no anxiety Physical Exam Physical Exam: General-alert and oriented x3, no fevers, no chills HEENT-head atraumatic and normocephalic, pupils equal and reactive to light, extraocular muscles intact Neck-no lymphadenopathy or thyromegaly, trachea midline Chest-no rales wheezing or rhonchi. She is mildly tachypneic. Cardiac-regular rate and rhythm, normal S1 and S2 Abdomen-normal bowel sounds, nontender, no hepatosplenomegaly Extremities-no cyanosis, clubbing, or edema Neuro-cranial nerves II through XII intact, motor and sensory function within normal limits, strength symmetrical , no focal deficits Psych-normal affect, normal mood Results & Data Results & Data Vital Signs (Past 12 Hours) Vital Signs Temp Pulse Resp BP Pulse Ox O2 Del Method 07/14/22 08:00 36.4 C L 42 L 20 176/75 H 94 Room Air Laboratory Results 07/13/22 06:34 07/14/22 05:56 PG Care Time/CCT Total # of Minutes Spent Total Time Spent with Patient: Total time spent is greater than 50% in coordination of care (as documented) at patient's floor/unit and/or counseling patient: Coding Level of Care Code 00163 SUB INP/OBS CARE 3/50MIN Diagnoses THA (acute kidney injury) N17.9 Diverticulitis K57.92 Salmonella gastroenteritis A02.0 Salmonella food poisoning A02.9 GERD (gastroesophageal reflux disease) K21.9 Hyperlipidemia E78.5 Hyperlipidemia type: unspecified Hypothyroidism E03.9 Hypothyroidism type: acquired Anxiety F41.9 Hypertension I10 (6) Hyperlipidemia Hyperlipidemia type: unspecified Qualified Code(s): E78.5 - Hyperlipidemia, unspecified (7) Hypothyroidism Hypothyroidism type: acquired Qualified Code(s): E03.9 - Hypothyroidism, unspecified
[2022-07-14] MEDS: cefTRIAXone SODIUM 2,000 MG in DEXTROSE 5% 50 ML IV SCH (15:32)
[2022-07-14] MEDS: ROSUVASTATIN CALCIUM 10 MG TAB PO SCH (20:38)
[2022-07-14] MEDS: hydrALAZINE HCL 20 MG/ML VIAL IV PRN (22:13)
[2022-07-15] MEDS: LEVOTHYROXINE SODIUM 25 MCG TABLET PO SCH (06:36)
[2022-07-15] MEDS: hydrALAZINE HCL 20 MG/ML VIAL IV PRN ×2 (07:40→22:32)
[2022-07-15 07:43] LABS: BUN Creatinine Ratio 26.7 (10-20); Calcium 8.8 mg/dl (8.6-10.3); Creatinine Clr Calc Pharmacy 11.9 ml/min; Est GFR (African American) 18.7 ml/min; Est GFR (Non-African American) 16.1 ml/min; Potassium 3.8 mmol/L (3.5-5.1)
[2022-07-15] MEDS: amLODIPine BESYLATE 5 MG TAB PO SCH (08:21)
[2022-07-15] MEDS: ASPIRIN 81 MG ECTAB PO SCH (08:21)
[2022-07-15] MEDS: predniSONE 50 MG TAB PO SCH (08:21)
[2022-07-15] MEDS: GABAPENTIN 100 MG CAP PO SCH ×2 (08:21→19:49)
[2022-07-15] MEDS: PANTOprazole 40 MG TAB PO SCH ×2 (08:21→19:48)
--- NOTE | 2022-07-15 09:04 | Nephrology Progress Note ---
Date of Service July 15, 2022 Assessment & Plan (1) THA (acute kidney injury): Plan: * THA likely AIN related to recent antibiotic therapy * Cr has improved from 3.9 to 2.7. Volume status and electrolyte balance remain acceptable * Completed Solumedrol 1g daily x3d. Transitioned to Prednisone 50 mg daily 07/13/22 * Given improvement in renal function, reduce Prednisone to 40 mg daily for 1-2 weeks, then taper by 10 mg every 3-7 days * Continue PPI while on steroid therapy * Monitor PRP, UO, volume status * When discharge is planned, please have patient follow up w/ Dr. Luke within 7 days ([phone]) (2) Salmonella gastroenteritis: Plan: * Remains on ceftriaxone * Reports diarrhea has resolved (3) Allergy to antibiotic: Plan: * Avoid fluoroquinolones. Outpatient follow up with Dr. Samaniego * Cipro has been added to list of drug allergies and should be avoided pending follow up with Allergy/Immunology (4) Hypertension: Plan: * Fluid retention in setting of aggressive IVF and THA * Agree w/ primary service increasing Amlodipine to 5 mg po daily Admission and Anticipated Discharge Date Admission Date: July 07, 2022 Subjective Mrs. Bell was evaluated in her hospital room this morning. Her was present at bedside. She denied fever, flank pain, skin rash or hematuria. Diarrhea has resolved. Mrs. Bell c/o mild dyspnea, wheezing that improved following bronchodilator therapy this am Review of Systems Constitutional: no fever Eyes: no problem reported Ear, Nose, Mouth, Throat: no problem reported Respiratory: no dyspnea Cardiovascular: no chest pain Gastrointestinal: no abdominal pain, no vomiting and no diarrhea/loose stools Genitourinary: no dysuria and no hematuria Physical Exam Constitutional: not in distress Eyes: PERRL, conjunctivae normal, anicteric sclerae ENMT: external ear and nose normal, oropharynx normal Neck: trachea midline, no thyromegaly Respiratory: normal respiratory effort, lungs clear to auscultation Cardiovascular: RRR, no murmur, no edema Gastrointestinal (Abdomen): normal bowel sounds, soft, nontender, no hepatosplenomegaly Skin: no rashes, warm and dry Neurologic: Speech / Cognition: normal speech and normal cognition Results & Data Vital Signs (Past 12 Hours) Vital Signs Temp Pulse Pulse Resp BP Pulse Ox O2 Del Method 07/15/22 08:04 36.5 C 48 L 18 173/58 H 96 Room Air 07/15/22 07:19 36.4 C L 45 L 16 180/62 H 95 Room Air 07/14/22 21:52 36.6 C 48 L 18 181/67 H 93 Room Air Laboratory Results Laboratory Tests 07/15/22 06:29 Sodium 143 Potassium 3.8 Chloride 111 H Carbon Dioxide 23 BUN 72 H Creatinine 2.70 H D Glucose 228 H PG Care Time/CCT Total # of Minutes Spent Total Time Spent with Patient: Total time spent is greater than 50% in coordination of care (as documented) at patient's floor/unit and/or counseling patient: Coding Level of Care Code 27046 SUB INP/OBS CARE 3/50MIN Diagnoses THA (acute kidney injury) N17.9 Salmonella gastroenteritis A02.0 Allergy to antibiotic Z88.1 Hypertension I10
--- NOTE | 2022-07-15 13:56 | Hospitalist Progress Note ---
Date of Service July 15, 2022 Assessment & Plan (1) THA (acute kidney injury): Plan: Creatinine improved to 2.7 today, July 14. It appears she has turned the corner and renal function is now improving hopefully to baseline. Parenteral steroid therapy switched to oral route per nephrology on July 13. Appreciate nephrology consultation and recommendations. CTAP w/ contrast without evidence of post- renal obstruction. Some concern whether CT contrast material has aggravated renal function. (2) Diverticulitis: Plan: With several days of abdominal pain and diarrhea, recently put on Cipro by outside provider, however developed a rash. CTAP with evidence of diverticulitis without evidence of abscess/perforation. Ertapenem has been switched to intravenous Rocephin which has been well-tolerated to date. Rocephin day 7. She will not need any further antibiotic therapy at the time of discharge. (3) Salmonella gastroenteritis: Plan: Ertapenem has been switched to intravenous Rocephin. Frequency of stools has decreased . Resolved (4) Salmonella food poisoning: Plan: Probably acquired from pork she recently consumed (5) GERD (gastroesophageal reflux disease): Plan: Currently on famotidine (6) Hyperlipidemia: Plan: Holding statin temporarily. May restart at discharge (7) Hypothyroidism: Plan: Stable. Continue thyroid replacement therapy (8) Anxiety: Plan: Treated with gabapentin. Stable. (9) Hypertension: Plan: Amlodipine dosage uptitrated on July 14. Will use IV hydralazine as needed Plan Hopefully home tomorrow, July 16, on oral prednisone therapy 50 mg/day and amlodipine as long as creatinine continues to improve. She does not need SNF placement. Admission and Anticipated Discharge Date Admission Date: July 07, 2022 Subjective Alert and oriented. is at the bedside. Nephrology entry noted. She is now on oral prednisone therapy. Creatinine improving now, down to 2.7. Rocephin day 7 for Salmonella enteritis. She probably will not need any further antibiotic therapy at anticipated discharge tomorrow, July 16. Amlodipine has been uptitrated. Systolic blood pressure is moderately elevated but hopefully will improve as renal function improves. Review of Systems Review of Systems: Constitutional-no fever or chills ENT-no blurred vision, no double vision, no epistaxis, no sore throat Respiratory-no cough, no wheezing. Shortness of breath at rest Cardiac-no palpitations, no chest pain, no syncope GI-no nausea, vomiting, melena, hematochezia. Frequency of diarrhea stool has decreased -no urinary retention, no urinary incontinence, no dysuria, no hematuria Musculoskeletal-no joint pain, no muscle tenderness Skin-no bruising, no rashes, no pruritus Neuro-no isolated weakness, no paresthesia, no weakness Psych-no depression, no anxiety Physical Exam Physical Exam: General-alert and oriented x3, no fevers, no chills HEENT-head atraumatic and normocephalic, pupils equal and reactive to light, extraocular muscles intact Neck-no lymphadenopathy or thyromegaly, trachea midline Chest-no rales wheezing or rhonchi. She is mildly tachypneic. Cardiac-regular rate and rhythm, normal S1 and S2 Abdomen-normal bowel sounds, nontender, no hepatosplenomegaly Extremities-no cyanosis, clubbing, or edema Neuro-cranial nerves II through XII intact, motor and sensory function within normal limits, strength symmetrical , no focal deficits Psych-normal affect, normal mood Results & Data Results & Data Vital Signs (Past 12 Hours) Vital Signs Temp Pulse Pulse Resp BP Pulse Ox O2 Del Method 07/15/22 07:20 Room Air 07/15/22 08:04 36.5 C 48 L 18 173/58 H 96 Room Air 07/15/22 07:19 36.4 C L 45 L 16 180/62 H 95 Room Air Laboratory Results 07/13/22 06:34 07/15/22 06:29 PG Care Time/CCT Total # of Minutes Spent Total Time Spent with Patient: Total time spent is greater than 50% in coordination of care (as documented) at patient's floor/unit and/or counseling patient: Coding Level of Care Code 34935 SUB INP/OBS CARE 2/35MIN Diagnoses THA (acute kidney injury) N17.9 Diverticulitis K57.92 Salmonella gastroenteritis A02.0 Salmonella food poisoning A02.9 GERD (gastroesophageal reflux disease) K21.9 Hyperlipidemia E78.5 Hyperlipidemia type: unspecified Hypothyroidism E03.9 Hypothyroidism type: acquired Anxiety F41.9 Hypertension I10 (6) Hyperlipidemia Hyperlipidemia type: unspecified Qualified Code(s): E78.5 - Hyperlipidemia, unspecified (7) Hypothyroidism Hypothyroidism type: acquired Qualified Code(s): E03.9 - Hypothyroidism, unspecified
[2022-07-15] MEDS: cefTRIAXone SODIUM 2,000 MG in DEXTROSE 5% 50 ML IV SCH (15:30)
[2022-07-15] MEDS: ROSUVASTATIN CALCIUM 10 MG TAB PO SCH (19:49)
[2022-07-16] MEDS: LEVOTHYROXINE SODIUM 25 MCG TABLET PO SCH (06:16)
[2022-07-16 06:21] LABS: Hematocrit (blood only) 28.9 % (37.0-47.0); Mean Corpuscular Hemoglobin 29.9 pg (25.0-34.0); Mean Corpuscular Hgb Conc 34.6 g/dL (32.0-36.0); Mean Corpuscular Volume 86.3 fL (80.0-100.0); Mean Platelet Volume 10.2 fL (9.4-12.4); Nucleated RBC # (auto) 0.02 K/uL (0-0.12); Nucleated RBC % (auto) 0.1 %; Platelet Count 274 K/uL (130-400); RDW Coefficient of Variation 13.6 % (11.5-14.5); RDW Standard Deviation 42.6 fL (36.4-46.3); Red Blood Count 3.35 M/uL (4.20-5.40); White Blood Count 26.14 K/ul (4.8-10.8)
[2022-07-16 06:32] LABS: BUN Creatinine Ratio 27.8 (10-20); Calcium 8.8 mg/dl (8.6-10.3); Creatinine Clr Calc Pharmacy 13.7 ml/min; Est GFR (African American) 22.2 ml/min; Est GFR (Non-African American) 19.2 ml/min; Potassium 3.8 mmol/L (3.5-5.1)
[2022-07-16] MEDS: hydrALAZINE HCL 20 MG/ML VIAL IV PRN (07:29)
[2022-07-16] MEDS ORDERED: FUROSEMIDE 20 MG TAB PO ONE (08:46)
[2022-07-16] MEDS ORDERED: predniSONE 20 MG TAB PO SCH (09:00)
[2022-07-16] MEDS: amLODIPine BESYLATE 5 MG TAB PO SCH (09:16)
[2022-07-16] MEDS: GABAPENTIN 100 MG CAP PO SCH ×2 (09:17→20:23)
[2022-07-16] MEDS: ASPIRIN 81 MG ECTAB PO SCH (09:17)
[2022-07-16] MEDS: PANTOprazole 40 MG TAB PO SCH ×2 (09:17→20:23)
[2022-07-16] MEDS: LORazepam 0.5 MG TAB PO PRN (09:26)
[2022-07-16] MEDS ORDERED: amLODIPine BESYLATE 5 MG TAB PO ONE (10:22)
[2022-07-16] MEDS: predniSONE 10 MG TABLET PO SCH (10:50)
--- NOTE | 2022-07-16 11:03 | Nephrology Progress Note ---
Date of Service July 16, 2022 Assessment & Plan (1) THA (acute kidney injury): Plan: * THA likely AIN related to recent antibiotic therapy * Cr has improved from 3.9 to 2.3. Electrolyte balance remains acceptable * Completed Solumedrol 1g daily x3d. Transitioned to Prednisone 50 mg daily 07/13/22 * Given improvement in renal function and facial swelling, will reduce Prednisone to 30 mg daily for 1-2 weeks, then taper by 10 mg every 3-7 days * Continue PPI while on steroid therapy * Monitor PRP, UO, volume status * When discharge is planned, please have patient follow up w/ Dr. Luke within 7 days ([phone]) (2) Hypertension: Plan: * Now on Amlodipine 5 mg po daily * Patient is 4 L volume positive since admission * Will start Furosemide 20 mg qAM to promote diuresis * Monitor BP, volume status (3) Salmonella gastroenteritis: Plan: * Remains on ceftriaxone * Reports diarrhea has resolved (4) Allergy to antibiotic: Plan: * Avoid fluoroquinolones. Outpatient follow up with Dr. Samaniego * Cipro has been added to list of drug allergies and should be avoided pending follow up with Allergy/Immunology Admission and Anticipated Discharge Date Admission Date: July 07, 2022 Subjective Mrs. Bell was evaluated in her hospital room this morning. She is very anxious that her BP remains elevated. Mrs. Bell reports facial and LE swelling Review of Systems Constitutional: no fever Eyes: no problem reported Ear, Nose, Mouth, Throat: no problem reported Respiratory: no dyspnea Cardiovascular: no chest pain Gastrointestinal: no abdominal pain, no vomiting and no diarrhea/loose stools Genitourinary: no dysuria and no hematuria Physical Exam Constitutional: not in distress Eyes: PERRL, conjunctivae normal, anicteric sclerae ENMT: external ear and nose normal, oropharynx normal Neck: trachea midline, no thyromegaly Respiratory: normal respiratory effort, lungs clear to auscultation Cardiovascular: RRR, no murmur, no edema Gastrointestinal (Abdomen): normal bowel sounds, soft, nontender, no hepatosplenomegaly Skin: no rashes, warm and dry Neurologic: Speech / Cognition: normal speech and normal cognition Results & Data Vital Signs (Past 12 Hours) Vital Signs Temp Pulse Resp BP BP Pulse Ox O2 Del Method 07/16/22 09:52 Room Air 07/16/22 07:46 36.9 C 53 L 16 184/63 H 95 Room Air 07/15/22 23:06 36.9 C 61 16 159/61 H 95 Room Air Laboratory Results Laboratory Tests 07/16/22 07/16/22 05:49 05:49 WBC 26.14 H Hgb 10.0 L Hct 28.9 L Plt Count 274 Sodium 140 Potassium 3.8 Chloride 108 H Carbon Dioxide 24 BUN 65 H Creatinine 2.34 H D Glucose 218 H PG Care Time/CCT Total # of Minutes Spent Total Time Spent with Patient: Total time spent is greater than 50% in coordination of care (as documented) at patient's floor/unit and/or counseling patient: Coding Level of Care Code 33041 SUB INP/OBS CARE 3/50MIN Diagnoses THA (acute kidney injury) N17.9 Hypertension I10 Salmonella gastroenteritis A02.0 Allergy to antibiotic Z88.1
[2022-07-16] MEDS: hydrALAZINE 10 MG TAB PO SCH ×2 (14:12→21:26)
[2022-07-16] MEDS: cefTRIAXone SODIUM 2,000 MG in DEXTROSE 5% 50 ML IV SCH (16:05)
--- NOTE | 2022-07-16 18:38 | Hospitalist Progress Note ---
Date of Service July 16, 2022 Assessment & Plan (1) THA (acute kidney injury): Plan: Creatinine improved to 2.3 today, July 14. It appears she has turned the corner and renal function is now improving hopefully to baseline. Parenteral steroid therapy switched to oral route per nephrology on July 13. Nephrology reduce the dose of prednisone today to 30 mg daily. Appreciate nephrology consultation and recommendations. CTAP w/ contrast without evidence of post- renal obstruction. Some concern whether CT contrast material has aggravated renal function. (2) Diverticulitis: Plan: With several days of abdominal pain and diarrhea, recently put on Cipro by outside provider, however developed a rash. CTAP with evidence of diverticulitis without evidence of abscess/perforation. Ertapenem has been switched to intravenous Rocephin which has been well-tolerated to date. Rocephin day 8. Discontinue Rocephin. (3) Salmonella gastroenteritis: Plan: Ertapenem has been switched to intravenous Rocephin. Frequency of stools has decreased . Resolved. Discontinue Rocephin (4) Salmonella food poisoning: Plan: Probably acquired from pork she recently consumed (5) GERD (gastroesophageal reflux disease): Plan: Currently on famotidine (6) Hyperlipidemia: Plan: Holding statin temporarily. May restart at discharge (7) Hypothyroidism: Plan: Stable. Continue thyroid replacement therapy (8) Anxiety: Plan: Treated with gabapentin. Stable. (9) Hypertension: Plan: Amlodipine dosage uptitrated today to 10 mg. Added hydralazine p.o. For blood pressure control Plan Hopefully home tomorrow, July 16, on oral prednisone therapy 30 mg/day and amlodipine and hydralazine as long as creatinine continues to improve. She does not need SNF placement. Admission and Anticipated Discharge Date Admission Date: July 07, 2022 Subjective No diarrhea. No abdominal pain. Blood pressure still high. at the bedside. Review of Systems Review of Systems: All systems reviewed & are unremarkable except as noted in Subjective Physical Exam Physical Exam: General: Awake, conversant. Facial swelling noted Heart: S1, S2/regular rate and rhythm, no murmur rubs or gallops Lungs: Clear to auscultation bilaterally. Normal effort Abdomen: Soft/nontender/nondistended. No hepatosplenomegaly Extremities: No clubbing/cyanosis. No edema Behavior: Appropriate, cooperative Results & Data Results & Data Vital Signs (Past 12 Hours) Vital Signs Temp Pulse Pulse Resp BP BP Pulse Ox 07/16/22 15:18 36.9 C 65 16 159/63 H 91 07/16/22 14:12 61 18 166/68 H 96 07/16/22 09:52 07/16/22 07:46 36.9 C 53 L 16 184/63 H 95 O2 Del Method 07/16/22 15:18 Room Air 07/16/22 14:12 Room Air 07/16/22 09:52 Room Air 07/16/22 07:46 Room Air Laboratory Results Abnormal lab results 07/16/22 07/16/22 Range/Units 05:49 05:49 WBC 26.14 H (4.8-10.8) K/ul RBC 3.35 L (4.20-5.40) M/uL Hgb 10.0 L (12.0-16.0) g/dl Hct 28.9 L (37.0-47.0) % Chloride 108 H (98-107) mmol/L BUN 65 H (6-23) mg/dl Creatinine 2.34 H D (0.6-1.2) mg/dl BUN/Creatinine Ratio 27.8 H (10-20) Glucose 218 H (70-99(Fasting)) mg/dl PG Care Time/CCT Total # of Minutes Spent Total Time Spent with Patient: Total time spent is greater than 50% in coordination of care (as documented) at patient's floor/unit and/or counseling patient: Coding Level of Care Code 22738 SUB INP/OBS CARE 2/35MIN Diagnoses THA (acute kidney injury) N17.9 Diverticulitis K57.92 Salmonella gastroenteritis A02.0 Salmonella food poisoning A02.9 GERD (gastroesophageal reflux disease) K21.9 Hyperlipidemia E78.5 Hyperlipidemia type: unspecified Hypothyroidism E03.9 Hypothyroidism type: acquired Anxiety F41.9 Hypertension I10 (6) Hyperlipidemia Hyperlipidemia type: unspecified Qualified Code(s): E78.5 - Hyperlipidemia, unspecified (7) Hypothyroidism Hypothyroidism type: acquired Qualified Code(s): E03.9 - Hypothyroidism, unspecified
[2022-07-16] MEDS: ROSUVASTATIN CALCIUM 10 MG TAB PO SCH (20:23)
[2022-07-17] MEDS: LORazepam 0.5 MG TAB PO PRN ×2 (04:42→22:59)
[2022-07-17] MEDS: hydrALAZINE 10 MG TAB PO SCH (04:46)
[2022-07-17] MEDS: LEVOTHYROXINE SODIUM 25 MCG TABLET PO SCH (04:46)
[2022-07-17 08:04] LABS: BUN Creatinine Ratio 30.4 (10-20); Calcium 8.4 mg/dl (8.6-10.3); Creatinine Clr Calc Pharmacy 15.7 ml/min; Est GFR (African American) 26.2 ml/min; Est GFR (Non-African American) 22.6 ml/min; Potassium 3.7 mmol/L (3.5-5.1)
--- NOTE | 2022-07-17 08:47 | Nephrology Progress Note ---
Date of Service July 17, 2022 Assessment & Plan (1) THA (acute kidney injury): Plan: * THA likely AIN related to recent antibiotic therapy * Cr has improved from 3.9 to 2.0. Electrolyte balance remains acceptable * Completed Solumedrol 1g daily x3d. Transitioned to oral Prednisone 07/13/22 * Continue Prednisone to 30 mg daily for 1-2 weeks, then taper by 10 mg every 7 days * Continue PPI while on steroid therapy * Monitor PRP, UO, volume status * When discharge is planned, please have patient follow up w/ Dr. Luke within 7 days ([phone]) (2) Hypertension: Plan: * Now on Amlodipine 5 mg po daily and Hydralazine 10 mg po q8 hrs * Patient diuresed 900 cc yesterday in response to Furosemide therapy * Will give additional Furosemide 20 mg this morning and then stop * Monitor BP, volume status (3) Salmonella gastroenteritis: Plan: * Remains on ceftriaxone * Diarrhea has resolved (4) Allergy to antibiotic: Plan: * Avoid fluoroquinolones. Outpatient follow up with Dr. Samaniego * Cipro has been added to list of drug allergies and should be avoided pending follow up with Allergy/Immunology Admission and Anticipated Discharge Date Admission Date: July 07, 2022 Subjective Mrs. Bell was evaluated in her hospital room this morning. She responded well to diuretic therapy and notes that her BP and ankle swelling are improved Review of Systems Constitutional: no fever Eyes: no problem reported Ear, Nose, Mouth, Throat: no problem reported Respiratory: no dyspnea Cardiovascular: no chest pain Gastrointestinal: no abdominal pain, no vomiting and no diarrhea/loose stools Genitourinary: no dysuria and no hematuria Physical Exam Constitutional: not in distress Eyes: PERRL, conjunctivae normal, anicteric sclerae ENMT: external ear and nose normal, oropharynx normal Neck: trachea midline, no thyromegaly Respiratory: normal respiratory effort, lungs clear to auscultation Cardiovascular: RRR, no murmur, no edema Gastrointestinal (Abdomen): normal bowel sounds, soft, nontender, no hepatosplenomegaly Skin: no rashes, warm and dry Neurologic: Speech / Cognition: normal speech and normal cognition Results & Data Vital Signs (Past 12 Hours) Vital Signs Temp Pulse Resp BP Pulse Ox O2 Del Method 07/17/22 07:58 36.7 C 52 L 16 153/68 H 93 Room Air 07/17/22 04:46 72 180/64 H 07/17/22 05:24 66 16 145/60 H 07/16/22 21:25 36.7 C 71 16 153/67 H 96 Room Air Laboratory Results Laboratory Tests 07/17/22 07:08 Sodium 142 Potassium 3.7 Chloride 108 H Carbon Dioxide 26 BUN 62 H Creatinine 2.04 H D Glucose 183 H PG Care Time/CCT Total # of Minutes Spent Total Time Spent with Patient: Total time spent is greater than 50% in coordination of care (as documented) at patient's floor/unit and/or counseling patient: Coding Level of Care Code 91747 SUB INP/OBS CARE 3/50MIN Diagnoses THA (acute kidney injury) N17.9 Hypertension I10 Salmonella gastroenteritis A02.0 Allergy to antibiotic Z88.1
[2022-07-17] MEDS: amLODIPine BESYLATE 5 MG TAB PO SCH (08:54)
[2022-07-17] MEDS: ASPIRIN 81 MG ECTAB PO SCH (08:54)
[2022-07-17] MEDS: predniSONE 10 MG TABLET PO SCH (08:55)
[2022-07-17] MEDS: PANTOprazole 40 MG TAB PO SCH ×2 (08:55→20:52)
[2022-07-17] MEDS: GABAPENTIN 100 MG CAP PO SCH ×2 (08:55→20:52)
[2022-07-17] MEDS ORDERED: FUROSEMIDE 20 MG TAB PO ONE (10:41)
[2022-07-17] MEDS: hydrALAZINE HCL 25 MG TAB PO SCH ×2 (14:51→20:52)
--- NOTE | 2022-07-17 18:32 | Hospitalist Progress Note ---
Date of Service July 17, 2022 Assessment & Plan (1) THA (acute kidney injury): Plan: Creatinine improved to 2 today. It appears she has turned the corner and renal function is now improving hopefully to baseline. Parenteral steroid therapy switched to oral route per nephrology on July 13. Nephrology reduce the dose of prednisone to 30 mg daily. Appreciate nephrology consultation and recommendations. CTAP w/ contrast without evidence of post- renal obstruction. Some concern whether CT contrast material has aggravated renal function. Outpatient follow-up with nephrology in 1 week. Continue PPI while on steroid. (2) Diverticulitis: Plan: With several days of abdominal pain and diarrhea, recently put on Cipro by outside provider, however developed a rash. CTAP with evidence of diverticulitis without evidence of abscess/perforation. Ertapenem has been switched to intravenous Rocephin which has been well-tolerated to date. Completed course of Rocephin. Low residue diet (3) Salmonella gastroenteritis: Plan: Ertapenem has been switched to intravenous Rocephin. Frequency of stools has decreased . Resolved. Discontinue Rocephin (4) Salmonella food poisoning: Plan: Probably acquired from pork she recently consumed (5) GERD (gastroesophageal reflux disease): Plan: Currently on famotidine (6) Hyperlipidemia: Plan: Holding statin temporarily. May restart at discharge (7) Hypothyroidism: Plan: Stable. Continue thyroid replacement therapy (8) Anxiety: Plan: Treated with gabapentin. Stable. (9) Hypertension: Plan: Amlodipine dosage uptitrated today to 10 mg. Added hydralazine p.o., increased to 25 p.o. 3 times daily for blood pressure control. Discontinue IV hydralazine Plan Hopefully home tomorrow, July 17, on oral prednisone therapy 30 mg/day and amlodipine and hydralazine as long as creatinine continues to improve. She does not need SNF placement. Admission and Anticipated Discharge Date Admission Date: July 07, 2022 Subjective Patient says that she is feeling much better today. But she is anxious about her blood pressure being high and requiring IV hydralazine. Review of Systems Review of Systems: All systems reviewed & are unremarkable except as noted in Subjective Physical Exam Physical Exam: General: Awake, conversant. Facial swelling improved Heart: S1, S2/regular rate and rhythm, no murmur rubs or gallops Lungs: Clear to auscultation bilaterally. Normal effort Abdomen: Soft/nontender/nondistended. No hepatosplenomegaly Extremities: No clubbing/cyanosis. Mild bilateral edema Behavior: Appropriate, cooperative Results & Data Results & Data Vital Signs (Past 12 Hours) Vital Signs Temp Pulse Resp BP BP Pulse Ox O2 Del Method 07/17/22 15:44 36.4 C L 53 L 16 151/57 H 94 Room Air 07/17/22 13:46 76 181/70 H 170/71 H 07/17/22 07:58 36.7 C 52 L 16 153/68 H 93 Room Air PG Care Time/CCT Total # of Minutes Spent Total Time Spent with Patient: Total time spent is greater than 50% in coordination of care (as documented) at patient's floor/unit and/or counseling patient: Coding Level of Care Code 56085 SUB INP/OBS CARE 2/35MIN Diagnoses THA (acute kidney injury) N17.9 Diverticulitis K57.92 Salmonella gastroenteritis A02.0 Salmonella food poisoning A02.9 GERD (gastroesophageal reflux disease) K21.9 Hyperlipidemia E78.5 Hyperlipidemia type: unspecified Hypothyroidism E03.9 Hypothyroidism type: acquired Anxiety F41.9 Hypertension I10 (6) Hyperlipidemia Hyperlipidemia type: unspecified Qualified Code(s): E78.5 - Hyperlipidemia, unspecified (7) Hypothyroidism Hypothyroidism type: acquired Qualified Code(s): E03.9 - Hypothyroidism, unspecified
[2022-07-17] MEDS: ROSUVASTATIN CALCIUM 10 MG TAB PO SCH (20:52)
[2022-07-18] MEDS: LEVOTHYROXINE SODIUM 25 MCG TABLET PO SCH (05:33)
[2022-07-18] MEDS: hydrALAZINE HCL 25 MG TAB PO SCH ×2 (05:35→14:22)
--- NOTE | 2022-07-18 08:38 | Nephrology Progress Note ---
Date of Service July 18, 2022 Assessment & Plan (1) THA (acute kidney injury): Plan: * THA likely AIN related to recent antibiotic therapy (peak Cr 3.99 07/12/22) * Cr has improved from 3.9 to 1.9. Electrolyte balance remains acceptable * Completed Solumedrol 1g daily x3 days. Transitioned to oral Prednisone 07/13/22 * Will reduce Prednisone to 20 mg daily * Continue PPI while on steroid therapy * Monitor PRP, UO, volume status * When discharge is planned, please have patient follow up w/ Dr. Luke within 7 days ([phone]). He will continue Prednisone taper as outpatient (2) Hypertension: Plan: * Continue Amlodipine 5 mg po daily and Hydralazine 10 mg po q8 hrs * Furosemide has been stopped (3) Salmonella gastroenteritis: Plan: * Diarrhea has resolved following antibiotic therapy (4) Allergy to antibiotic: Plan: * Avoid fluoroquinolones. Outpatient follow up with Dr. Samaniego * Cipro has been added to list of drug allergies and should be avoided pending follow up with Allergy/Immunology Admission and Anticipated Discharge Date Admission Date: July 07, 2022 Subjective Mrs. Bell was evaluated in her hospital room this morning. She denied fever, flank pain or uremic symptoms. She notes that her BP was improved yesterday Review of Systems Constitutional: no fever Eyes: no problem reported Ear, Nose, Mouth, Throat: no problem reported Respiratory: no dyspnea Cardiovascular: no chest pain Gastrointestinal: no abdominal pain, no vomiting and no diarrhea/loose stools Genitourinary: no dysuria and no hematuria Physical Exam Constitutional: not in distress Eyes: PERRL, conjunctivae normal, anicteric sclerae ENMT: external ear and nose normal, oropharynx normal Neck: trachea midline, no thyromegaly Respiratory: normal respiratory effort, lungs clear to auscultation Cardiovascular: RRR, no murmur, no edema Gastrointestinal (Abdomen): normal bowel sounds, soft, nontender, no hepatosplenomegaly Skin: no rashes, warm and dry Neurologic: Speech / Cognition: normal speech and normal cognition Results & Data Vital Signs (Past 12 Hours) Vital Signs Temp Pulse Resp BP BP Pulse Ox Pulse Ox 07/18/22 07:34 36.9 C 58 L 16 139/87 95 07/18/22 05:32 70 138/54 L 07/17/22 22:38 96 07/17/22 22:28 36.5 C 55 L 16 173/64 H 94 O2 Del Method O2 Del Method 07/18/22 07:34 Room Air 07/18/22 05:32 07/17/22 22:38 Room Air 07/17/22 22:28 Room Air Laboratory Results Laboratory Tests 07/16/22 07/18/22 05:49 07:44 WBC 26.14 H Hgb 10.0 L Hct 28.9 L Plt Count 274 Sodium 144 Potassium 3.6 Chloride 107 Carbon Dioxide 28 BUN 59 H Creatinine 1.90 H PG Care Time/CCT Total # of Minutes Spent Total Time Spent with Patient: Total time spent is greater than 50% in coordination of care (as documented) at patient's floor/unit and/or counseling patient: Coding Level of Care Code 59653 SUB INP/OBS CARE 3/50MIN Diagnoses THA (acute kidney injury) N17.9 Hypertension I10 Salmonella gastroenteritis A02.0 Allergy to antibiotic Z88.1
[2022-07-18 08:40] LABS: BUN Creatinine Ratio 31.1 (10-20); Calcium 8.4 mg/dl (8.6-10.3); Creatinine Clr Calc Pharmacy 16.9 ml/min; Est GFR (African American) 28.6 ml/min; Est GFR (Non-African American) 24.6 ml/min; Potassium 3.6 mmol/L (3.5-5.1)
[2022-07-18] MEDS: ASPIRIN 81 MG ECTAB PO SCH (08:59)
[2022-07-18] MEDS: predniSONE 10 MG TABLET PO SCH (08:59)
[2022-07-18] MEDS: PANTOprazole 40 MG TAB PO SCH (08:59)
[2022-07-18] MEDS: amLODIPine BESYLATE 5 MG TAB PO SCH (08:59)
[2022-07-18] MEDS: GABAPENTIN 100 MG CAP PO SCH (09:37)
--- NOTE | 2022-07-18 13:42 | Discharge Summary ---
Date of Service July 18, 2022 Admission HPI Per Admitting Provider The patient is a 81-year-old female with a past medical history including anxiety, endometrial hyperplasia, GERD, osteopenia of menopause, sinus bradycardia, prediabetes, hypothyroidism, hyperlipidemia and dermatitis. Best gao reports the emergency department with symptoms as noted above. I suggested to her that her symptoms are classic for food poisoning, and stool PCR later on admission is positive for Salmonella. The patient did already receive ertapenem 1 g IV from the ED. Admission Exam Per Admitting Provider The patient is awake, alert and oriented 3, well developed and well nourished, normocephalic and atraumatic, lying in bed and in no acute distress. HEENT--PERRL, EOMI, mucous membranes and oropharynx dry. Neck--supple. No JVD. No bruits. Thyroid normal, trachea midline, no adenopathy. Heart--normal S1 and S2. No murmurs, rubs or gallops. Lungs--clear bilaterally, no respiratory distress, no accessory muscle use. Abdomen--generalized mild tenderness. Nondistended, no hernias or masses, no organomegaly. Extremities--no cyanosis or clubbing. No edema. Dermatologic--normal skin turgor, normal color, no abnormal lymph nodes, no rash. Neurologic--cranial nerves II through XII grossly intact. Rheumatologic--normal range of motion. Psychiatric--normal affect. Principal Diagnosis Acute diverticulitis versus Salmonella gastroenteritis, Salmonella food poisoning Acute interstitial nephritis most likely due to ciprofloxacin, on prednisone Benign essential hypertension secondary to being on steroids Discharge Exam General: Awake, conversant. Facial swelling improved Heart: S1, S2/regular rate and rhythm, no murmur rubs or gallops Lungs: Clear to auscultation bilaterally. Normal effort Abdomen: Soft/nontender/nondistended. No hepatosplenomegaly Extremities: No clubbing/cyanosis. Mild bilateral edema Behavior: Appropriate, cooperative Discharge Data Allergies Allergy/AdvReac Type Severity Reaction Status Date / Time Penicillins Allergy Severe FEET Verified 07/07/22 18:49 SWELLED HAD TO BE CARRIED shellfish derived Allergy Severe Gastrointestinal Unverified 07/08/22 16:53 Upset bacitracin Allergy Intermediate TOTAL BODY Verified 07/07/22 18:49 RASH/SWELLING benzocaine Allergy Intermediate Rash Verified 07/07/22 18:49 clindamycin Allergy Intermediate RASH Verified 07/07/22 18:49 cobalt Allergy Intermediate TOTAL BODY Verified 07/07/22 18:49 RASH/SWELLING ethylenediamine Allergy Intermediate Rash Verified 07/07/22 18:49 hydrocortisone Allergy Intermediate TOTAL BODY Verified 07/07/22 18:49 RASH/SWELLING neomycin Allergy Intermediate TOTAL BODY Verified 07/07/22 18:49 RASH/SWELLING oxycodone Allergy Intermediate Rash Verified 07/07/22 18:49 prednisolone Allergy Intermediate Rash Verified 07/07/22 18:49 tixocortol Allergy Intermediate TOTAL BODY Verified 07/07/22 18:49 RASH/SWELLING ciprofloxacin [From Cipro] Allergy Mild rash Verified 07/08/22 16:53 formaldehyde Allergy Unknown Unknown Verified 07/07/22 18:49 metronidazole AdvReac Unknown Gastrointestinal Verified 07/08/22 16:53 Upset Consultations 07/07/22 19:15 ED Decision to Admit Stat 07/08/22 08:00 Consult Nephrology Routine 07/17/22 10:03 Consult [facility] [employer] office [employer] Routine Ordered Studies 07/07/22 18:28 CT abd pelvis wo con Stat Hospital Course (1) THA (acute kidney injury): Most likely secondary to acute interstitial nephritis related to ciprofloxacin exposure. She was started on steroids with improvement Creatinine improved to 2 today. It appears she has turned the corner and renal function is now improving hopefully to baseline. Parenteral steroid therapy switched to oral route per nephrology on July 13. Nephrology reduce the dose of prednisone to 20 mg daily. Appreciate nephrology consultation and recommendations. CTAP w/ contrast without evidence of post- renal obstruction. Some concern whether CT contrast material has aggravated renal function. Outpatient follow-up with nephrology in 1 week. Continue PPI while on steroid. (2) Diverticulitis: With several days of abdominal pain and diarrhea, recently put on Cipro by outside provider, however developed a rash. CTAP with evidence of diverticulitis without evidence of abscess/perforation. Ertapenem has been switched to intravenous Rocephin which has been well-tolerated to date. Completed course of Rocephin. Low residue diet (3) Salmonella gastroenteritis: Ertapenem has been switched to intravenous Rocephin. Frequency of stools has decreased . Resolved. Discontinue Rocephin (4) Salmonella food poisoning: Probably acquired from pork she recently consumed (5) GERD (gastroesophageal reflux disease): Currently on famotidine (6) Hyperlipidemia: Holding statin temporarily. May restart at discharge (7) Hypothyroidism: Stable. Continue thyroid replacement therapy (8) Anxiety: Treated with gabapentin. Stable. (9) Hypertension: Amlodipine dosage uptitrated today to 10 mg. Added hydralazine p.o., increased to 25 p.o. 3 times daily for blood pressure control. Discontinue IV hydralazine Plan Discharge today, on oral prednisone therapy 20 mg/day and amlodipine and hydralazine as long as creatinine continues to improve. She does not need SNF placement. Total Time Total Time Spent Total Time Spent (In Minutes): 35 Discharge Plan Discharge Items Patient Disposition: Home - Self-Care Reason For Visit: DIVERTICULITIS, THA Discharge Diagnosis: Acute diverticulitis versus Salmonella gastroenteritis, Salmonella food poisoning Acute interstitial nephritis most likely due to ciprofloxacin, on prednisone Benign essential hypertension secondary to being on steroids Activity: Resume your previous activity Non-emergency contact: Primary Care Provider Call non-emergency contact if: you have any medication questions and your symptoms worsen Follow-up/Referrals: Jesse Hood CRNP [Primary Care Provider] - 07/25/22 11:00 am Carlos Luke DO [Physician] - (Office will reach out to schedule) Diet: Heart Healthy and Low Fiber Addtl Attending Provider Instructions: Advised to follow-up with nephrology in 1 week Advised to follow-up with PCP in 1 week Pending Studies at Discharge: No Stand-Alone Forms[facility] and DC Order Prescriptions: New prednisone 20 mg Tablet 20 mg PO DAILY Qty: 14 0RF hydralazine 25 mg Tablet 25 mg PO Q8 30 Days Qty: 90 0RF amlodipine [Norvasc] 5 mg Tablet 10 mg PO QAM Qty: 30 0RF pantoprazole 40 mg Tablet,Delayed Release (Dr/Ec) 40 mg PO BID 30 Days Qty: 60 0RF Continued levothyroxine 25 mcg tablet 25 mcg PO QAM Qty: 90 2RF rosuvastatin 10 mg tablet 10 mg PO HS Qty: 90 3RF gabapentin 100 mg capsule 100 mg PO DAILY calcium carbonate-vitamin D3 600 mg(1,500mg) -200 unit tablet 1 tab PO QAM multivitamin [One-A-Day Essential] tablet 1 tab PO PM triamcinolone acetonide 0.1 % cream 1 applic topical BID PRN (Reason: Itching) aspirin [Aspir-81] 81 mg Tablet,Delayed Release (Dr/Ec) 81 mg PO QAM Discharge Orders: Discharge Order (Routine); Ordered 07/18/22 Ordered By: [place]/Other Patient Handouts: Controlling High Blood Pressure, Low-Salt Choices, Eating Heart-Healthy Foods, Blood Pressure Check Steps Admission Data Admit Date/Time: 07/07/22 20:19 Attending Provider: Evens Amaro Admit Provider: Willie Llanos Primary Care Provider: Jesse Hood Other Providers: Willie Llanos ; Carlos Luke Other Interventions: Discharge Summary Assessment (RN) Last Done: 07/18/22 14:12 Coding Level of Care Code 29743 INP/OBS DISCH >30 MIN Diagnoses THA (acute kidney injury) N17.9 Diverticulitis K57.92 Salmonella gastroenteritis A02.0 Salmonella food poisoning A02.9 GERD (gastroesophageal reflux disease) K21.9 Hyperlipidemia E78.5 Hyperlipidemia type: unspecified Hypothyroidism E03.9 Hypothyroidism type: acquired Anxiety F41.9 Hypertension I10
[2022-07-19] MEDS ORDERED: predniSONE 20 MG TAB PO SCH (09:00)
== END 2022-07-18 15:29 | disposition home or self-care (01) | DRG 372 ==
LOC: ED 17:07 → SUATTDRO 20:19 → 3N 20:19

== ENCOUNTER 2022-08-01 17:15 | Observation (INO) ==
[2022-08-01] MEDS ORDERED: SODIUM CHLORIDE 0.9% 1000ML 2,000 ML IV ONE (17:32)
--- NOTE | 2022-08-01 17:47 | Emergency Department Note ---
Impression & Plan Acute hyperglycemia ED Provider Note NAME: TARYN ROGERS AGE: 81 SEX: F : 1940 ARRIVES VIA: Walk-In INFORMANT: Patient ED PROVIDER(S): Tarun Rodriguez DO CHIEF COMPLAINT: Increased urination and thirst with an elevated blood sugar HPI: Patient is a 81-year-old female who had a recent admission secondary to THA with interstitial nephritis believed to be secondary to Cipro which was being used to treat diverticulitis. She notes that she had blood work done by nephro marysol and her creatinine has been improving and she has been on steroids. She tapered down to 10 mg. She is prediabetic. Sugars were up around 600. She has been drinking more fluids and urinating more. She denies any headache or change in vision. No chest pain or shortness of breath. No nausea vomiting or diarrhea. No dysuria urgency or frequency. No belly pain. No other exacerbating or remitting factors. PAST MEDICAL HISTORY:See Below PAST SURGICAL HISTORY:See Below FAMILY HISTORY:See Below SOCIAL HISTORY:See Below HOME MEDICATIONS:See Below ALLERGIES:See Below VITALS:See Below PHYSICAL EXAMINATION: GENERAL: Sitting up in bed, alert, well appearing, well nourished, no distress, non-toxic EYE EXAM: normal conjunctiva. OROPHARYNX: no exudate, no erythema, lips, buccal mucosa, and tongue normal and mucous membranes are moist NECK: supple, no nuchal rigidity, no adenopathy, non-tender LUNGS: Clear to auscultation. Normal chest wall mechanics HEART: no murmurs, S1 normal and S2 normal ABDOMEN: abdomen soft, non-tender, normo-active bowel sounds, no masses, no rebound or guarding. BACK: Back is symmetrical on inspection and there is no deformity, no midline tenderness, no CVA tenderness. SKIN: no rashes and no bruising UPPER EXTREMITIES: upper extremities are grossly normal. LOWER EXTREMITIES: No pitting edema. NEURO EXAM: Normal sensorium, cranial nerves II-XII grossly intact, normal speech, no gross weakness of arms, no gross weakness of legs. MEDICAL DECISION MAKING: Patient is a 77-year-old female who presents to the ER for above-stated complaint. IV was established blood work was obtained. External records reviewed. Labs showed a mild leukocytosis 11,000. No significant anemia. VBG with pH 7.4. BMP with a blood sugar of 500. She was given IV fluids and insulin and this trended down to 150s. There is no gap. Patient has been running with sugars 600-400 since the beginning of this month. She is currently on prednisone for interstitial nephritis following with nephrology. At this point she has followed up with the PCP and the sugars are not maintained and consequently I discussed the case with the hospitalist for further evaluation m anagement treatment. Patient was agreeable. Triage Nursing notes reviewed. Limited review of prior medical records performed Vital Signs: reviewed and remarkable for no significant abnormalities Differential diagnosis: Infection, dehydration, metabolic abnormality, hypo/hyperglycemia, electrolyte disturbance, anemia, hypoxia, cardiac sources, intracerebral event, toxicologic, neurologic, as well as other pathologies. ER treatment provided: See below Diagnostics interpreted by me include EKG and cardiac monitoring as listed below: -Cardiac Monitoring: An order was placed for continuous cardiac monitoring. The monitor shows a rate of 80 with sinus rhythm. -ECG: none -Laboratory studies:Interpreted by me as stated above in MDM and shown below. 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> then SBO> resolved Endometrial hyperplasia Endometrial thickening on ultrasound GERD (gastroesophageal reflux disease) Herpes zoster Hx of rotator cuff tear right Hyperlipidemia Hypothyroidism Pneumonia resolved Postmenopausal Postmenopausal bleeding Pre-diabetes Sinus bradycardia pt unaware > no cardiology Surgical History History of appendectomy History of delivery x2 History of cholecystectomy History of colonoscopy History of endometrial ablation History of hip replacement Right FREDDY (2007/[facility]): post-operatively patient reports diffuse rash/itching on post-op day#3, suspected to be contact dermatitis from the bedsheets per discharge summary (given benadryl)- 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 Wilda Jaeger History of resection of small bowel History of tonsillectomy Family History Mother Depression Other Myocardial infarction Stroke Denies family history of Ovarian cancer Prostate cancer Diabetes Breast cancer Lung cancer Colorectal cancer Hypertension Social History Smoking Status: Never smoker Second Hand Exposure: No; Do You Dip or Chew Tobacco: No; Hx Alcohol Use: No Hx Substance Use: No Preferred Language: Telugu Communication Ability: Effective Visual Impairment: Limited Hearing Ability: Normal Licensed Nursing Assistant Required: No Beliefs That Will Affect Care: None marital status: Current Living Situation: Spouse current occupational status: employed current occupation: realtor How many Children do You have: 2 Feels Safe at Home: Yes Childhood Exposure to Second-Hand Smoke: Yes caffeine: Yes (drinks tea ) Dental Care, Regularly: Yes Physical Activity Frequency: 3-4 Times per Week Seatbelt Use: always Sunscreen Use: Yes (tries to ) Assistive Devices: None Allergies Allergies Allergy/AdvReac Type Severity Reaction Status Date / Time Penicillins Allergy Severe FEET Verified 07/26/22 11:18 SWELLED HAD TO BE CARRIED shellfish derived Allergy Severe Gastrointestinal Unverified 07/26/22 11:18 Upset bacitracin Allergy Intermediate TOTAL BODY Verified 07/26/22 11:18 RASH/SWELLING benzocaine Allergy Intermediate Rash Verified 07/26/22 11:18 clindamycin Allergy Intermediate RASH Verified 07/26/22 11:18 cobalt Allergy Intermediate TOTAL BODY Verified 07/26/22 11:18 RASH/SWELLING ethylenediamine Allergy Intermediate Rash Verified 07/26/22 11:18 hydrocortisone Allergy Intermediate TOTAL BODY Verified 07/26/22 11:18 RASH/SWELLING neomycin Allergy Intermediate TOTAL BODY Verified 07/26/22 11:18 RASH/SWELLING oxycodone Allergy Intermediate Rash Verified 07/26/22 11:18 prednisolone Allergy Intermediate Rash Verified 07/26/22 11:18 tixocortol Allergy Intermediate TOTAL BODY Verified 07/26/22 11:18 RASH/SWELLING ciprofloxacin [From Cipro] Allergy Mild rash Verified 07/26/22 11:18 formaldehyde Allergy Unknown Unknown Verified 07/26/22 11:18 metronidazole AdvReac Unknown Gastrointestinal Verified 07/26/22 11:18 Upset Home Meds Home Medications Medication Instructions Recorded Confirmed calcium carbonate 600 mg-vitamin 1 tab PO QAM 09/04/18 08/01/22 D3 5 mcg (200 unit) tablet multivitamin (One-A-Day Essential 1 tab PO PM 09/04/18 08/01/22 tablet) aspirin 81 mg tablet,delayed 81 mg PO QAM 03/24/19 08/01/22 release (Aspir-) triamcinolone acetonide 0.1 % 1 applic topical BID PRN Itching 09/14/21 08/01/22 topical cream gabapentin 100 mg capsule 200 mg PO HS 07/25/22 08/01/22 Previous Rx's Medication Instructions Recorded levothyroxine 25 mcg tablet 25 mcg PO QAM #90 tabs 02/20/22 rosuvastatin 10 mg tablet 10 mg PO HS #90 tabs 06/28/22 hydralazine 25 mg tablet 25 mg PO Q8 1 month #90 tabs 07/18/22 pantoprazole 40 mg tablet,delayed 40 mg PO BID 1 month #60 tabs 07/18/22 release amlodipine 5 mg tablet (Norvasc) 10 mg PO QAM #90 tabs 07/25/22 metformin 500 mg tablet 500 mg PO DAILY #30 tabs 08/01/22 Results & Data (ED) Vital Signs Vital Signs - 24 hr 08/01/22 17:20 08/01/22 18:16 08/01/22 19:10 Temperature 37.1 C Temperature Source Temporal Artery Scan Pulse Rate 84 Pulse Rate [Apical] 82 Respiratory Rate 16 18 Respiratory Effort / Characteristics Non-Labored Spontaneous Non-Labored Respiratory Depth Normal Normal Blood Pressure 161/75 H Blood Pressure [Right Arm] 159/61 H Blood Pressure Mean 103 Blood Pressure Mean [Right Arm] 93 Blood Pressure Position Sitting Pulse Oximetry 98 98 97 Oxygen Delivery Method Room Air Room Air Sepsis Recent Fever Within 48 Hours No Sepsis New/Unexplained Change in Mental Status N/A Sepsis Action Taken by Nursing No Action Required Laboratory Data 08/01/22 17:43 08/01/22 19:37 Lab Results 08/01/22 08/01/22 08/01/22 Range/Units 17:32 17:43 17:43 WBC 11.35 H (4.8-10.8) K/ul RBC 4.08 L (4.20-5.40) M/uL Hgb 12.2 (12.0-16.0) g/dl Hct 34.7 L (37.0-47.0) % MCV 85.0 (80.0-100.0) fL MCH 29.9 (25.0-34.0) pg MCHC 35.2 (32.0-36.0) g/dL RDW Std Deviation 40.3 (36.4-46.3) fL RDW Coeff of Eduard 13.1 (11.5-14.5) % Plt Count 271 (130-400) K/uL MPV 9.7 (9.4-12.4) fL Immature Gran % (Auto) 1.3 % Neut % (Auto) 88.1 % Lymph % (Auto) 6.2 % [place] % (Auto) 4.1 % Eos % (Auto) 0.1 % Baso % (Auto) 0.2 % Neut # (Auto) 10.00 H (1.40-6.50) K/uL Lymph # (Auto) 0.70 L (1.2-3.4) K/uL [place] # (Auto) 0.47 (0.11-0.59) K/uL Eos # (Auto) 0.01 (0-0.50) K/uL Baso # (Auto) 0.02 (0-0.2) K/uL Immature Gran # (Auto) 0.15 (0.01-0.20) K/uL VBG pH 7.42 H (7.36-7.41) VBG pCO2 41 (38-50) mmHg VBG pO2 39 mmHg VBG HCO3 27 mmol/L VBG O2 Saturation 73.0 % VBG Base Excess 1.9 mEq/L Sodium (136-145) mmol/L Potassium (3.5-5.1) mmol/L Chloride (98-107) mmol/L Carbon Dioxide (21-32) mmol/L Anion Gap (3-11) BUN (6-23) mg/dl Creatinine (0.6-1.2) mg/dl Est Cr Clr Drug Dosing Est GFR ( Amer) ml/min Est GFR (Non-Af Amer) ml/min BUN/Creatinine Ratio (10-20) Glucose (70-99(Fasting)) mg/dl POC Glucose 510 H* (70-99) mg/dl Calcium (8.6-10.3) mg/dl Total Bilirubin (0.2-1.0) mg/dl AST (13-39) U/L ALT (7-52) U/L Alkaline Phosphatase (34-104) U/L Total Protein (6.0-8.3) gm/dl Albumin (3.4-5.0) gm/dl Globulin (2.5-4.0) gm/dl Albumin/Globulin Ratio (0.9-2) Lipase (11-82) U/L SARS-CoV-2, RNA, NAAT (NEGATIVE) 08/01/22 08/01/22 08/01/22 Range/Units 17:43 18:31 18:39 WBC (4.8-10.8) K/ul RBC (4.20-5.40) M/uL Hgb (12.0-16.0) g/dl Hct (37.0-47.0) % MCV (80.0-100.0) fL MCH (25.0-34.0) pg MCHC (32.0-36.0) g/dL RDW Std Deviation (36.4-46.3) fL RDW Coeff of Eduard (11.5-14.5) % Plt Count (130-400) K/uL MPV (9.4-12.4) fL Immature Gran % (Auto) % Neut % (Auto) % Lymph % (Auto) % [place] % (Auto) % Eos % (Auto) % Baso % (Auto) % Neut # (Auto) (1.40-6.50) K/uL Lymph # (Auto) (1.2-3.4) K/uL [place] # (Auto) (0.11-0.59) K/uL Eos # (Auto) (0-0.50) K/uL Baso # (Auto) (0-0.2) K/uL Immature Gran # (Auto) (0.01-0.20) K/uL VBG pH (7.36-7.41) VBG pCO2 (38-50) mmHg VBG pO2 mmHg VBG HCO3 mmol/L VBG O2 Saturation % VBG Base Excess mEq/L Sodium 131 L (136-145) mmol/L Potassium 4.3 (3.5-5.1) mmol/L Chloride 92 L (98-107) mmol/L Carbon Dioxide 25 (21-32) mmol/L Anion Gap 14 H (3-11) BUN 38 H (6-23) mg/dl Creatinine 1.33 H (0.6-1.2) mg/dl Est Cr Clr Drug Dosing Not Reportable Est GFR ( Amer) 44.0 ml/min Est GFR (Non-Af Amer) 37.9 ml/min BUN/Creatinine Ratio 28.6 H (10-20) Glucose 481 H* (70-99(Fasting)) mg/dl POC Glucose 396 H* (70-99) mg/dl Calcium 9.8 (8.6-10.3) mg/dl Total Bilirubin 1.2 H (0.2-1.0) mg/dl AST 17 (13-39) U/L ALT 22 (7-52) U/L Alkaline Phosphatase 63 (34-104) U/L Total Protein 7.1 (6.0-8.3) gm/dl Albumin 4.2 (3.4-5.0) gm/dl Globulin 2.9 (2.5-4.0) gm/dl Albumin/Globulin Ratio 1.4 (0.9-2) Lipase 43 (11-82) U/L SARS-CoV-2, RNA, NAAT NEGATIVE (NEGATIVE) Administered Medications Lactated Ringer's (Lr) 1,000 mls @ 80 mls/hr IV .[id number] [facility] Stop: 08/02/22 07:59 Last Admin: 08/01/22 21:15 Dose: 80 mls/hr Documented By: DIANN Ceftriaxone Sodium 1,000 mg/ (Dextrose) 50 mls @ 100 mls/hr IV Q24H [facility]; Protocol Stop: 08/11/22 19:59 Last Infusion: 08/01/22 20:43 Dose: 0 mls/hr Documented By: Admin: 08/01/22 20:13 Dose: 100 mls/hr Documented By: QUENTIN Discontinued Medications Sodium Chloride (Nss 1000ml) 2,000 mls @ 999 mls/hr IV .Q2H1M ONE Stop: 08/01/22 19:32 Last Infusion: 08/01/22 19:46 Dose: 0 mls/hr Documented By: Admin: 08/01/22 17:46 Dose: 999 mls/hr Documented By: DARRELL Insulin Human Regular (Novolin-R Insulin Per Unit Charge) 8 units IV NOW STA Stop: 08/01/22 18:22 Last Admin: 08/01/22 18:50 Dose: Not Given Documented By: DARRELL Insulin Human Regular (Novolin-R Insulin Per Unit Charge) 5 units IV NOW STA Stop: 08/01/22 18:47 Last Admin: 08/01/22 18:50 Dose: 5 units Documented By: DARRELL Co-signed By: ASW Discharge Plan Visit Data Chief Complaint: Illness Stated Complaint: POSSIBLE DIABETIC SHOCK ED Provider: Tarun Rodriguez Discharge Problem: Acute hyperglycemia Patient Disposition: Admitted As Inpatient Discharge Instructions Interventions: ED Discharge Assessment Last Done: 08/01/22 20:23
[2022-08-01 17:55] LABS: Base Excess VBG 1.9 mEq/L; HCO3 VBG 27 mmol/L; PCO2 VBG 41 mmHg (38-50); PO2 VBG 39 mmHg; pH VBG 7.42 (7.36-7.41)
[2022-08-01 18:00] LABS: Basophils # (auto) 0.02 K/uL (0-0.2); Basophils % (auto) 0.2 %; Eosinophils # (auto) 0.01 K/uL (0-0.50); Eosinophils % (auto) 0.1 %; Hematocrit (blood only) 34.7 % (37.0-47.0); Hemoglobin 12.2 g/dl (12.0-16.0); Immature Granulocytes # (auto) 0.15 K/uL (0.01-0.20); Immature Granulocytes % (auto) 1.3 %; Lymphocytes % (auto) 6.2 %; Mean Corpuscular Hemoglobin 29.9 pg (25.0-34.0); Mean Corpuscular Hgb Conc 35.2 g/dL (32.0-36.0); Mean Platelet Volume 9.7 fL (9.4-12.4); Monocytes # (auto) 0.47 K/uL (0.11-0.59); Monocytes % (auto) 4.1 %; Neutrophils % (auto) 88.1 %; Platelet Count 271 K/uL (130-400); RDW Coefficient of Variation 13.1 % (11.5-14.5); RDW Standard Deviation 40.3 fL (36.4-46.3); Red Blood Count 4.08 M/uL (4.20-5.40); White Blood Count 11.35 K/ul (4.8-10.8)
[2022-08-01 18:18] LABS: Alanine Aminotransferase 22 U/L (7-52); Albumin Globulin Ratio 1.4 (0.9-2); Albumin Level 4.2 gm/dl (3.4-5.0); Alkaline Phosphatase 63 U/L (34-104); Anion Gap 14 (3-11); Aspartate Aminotransferase 17 U/L (13-39); BUN Creatinine Ratio 28.6 (10-20); Bilirubin,Total 1.2 mg/dl (0.2-1.0); Blood Urea Nitrogen 38 mg/dl (6-23); Calcium 9.8 mg/dl (8.6-10.3); Carbon Dioxide 25 mmol/L (21-32); Chloride 92 mmol/L (98-107); Est GFR (Non-African American) 37.9 ml/min; Globulin 2.9 gm/dl (2.5-4.0); Glucose 481 mg/dl (70-99(Fasting)); Lipase 43 U/L (11-82); Potassium 4.3 mmol/L (3.5-5.1); Sodium 131 mmol/L (136-145); Total Protein 7.1 gm/dl (6.0-8.3)
[2022-08-01] MEDS ORDERED: NovoLIN-R INSULIN PER UNIT CHARGE IV STA ×2 (18:21→18:46)
--- NOTE | 2022-08-01 18:37 | History & Physical Report ---
Date of Service August 01, 2022 Assessment & Plan (1) Hyperosmolar hyperglycemic state (HHS): Plan: Hyperglycemic hyperosmolar state, type II DM Patient with prior history of pre-DM not on antiglycemic's Was prescribed metformin today for outpatient blood work, only took 1 dose of this Presents with a BSG of 600 with clinical volume contraction. Improving following fluids, 1 dose of IV insulin given in ER pending 1 hour recheck Suspect patient has hyperglycemia induced by combination of recent steroids, and possible UTI (see below). Discharge antiglycemic's pending response/control overnight. Reasonable to target dual therapy, would avoid SGLT2 given patient reporting history of UTI Patient rapidly improving, defer additional aggressive insulin due to risk of osmotic change -We will place on weight-based basal bolus, glucose checks AC/at bedtime N.p.o. until BSG under 250, then may resume type II DM diet. Every hour BSG checks x3 following insulin administration in ER Primacy consulted for glycemic assistance ? UTI Patient with infected appearing UA and polyuria, but denies dysuria/burning Suspect this is likely asymptomatic bacteriuria with polyuria due to hyperglycemia, however given acute increase in BSG and mild leukocytosis will treat with 1 dose of Rocephin and follow clinic THA, history of recent AIN from Cipro Creatinine had gradually been improving most recently 1.24 as outpatient. Slight uptrend to 1.31 in the setting of volume depletion and hyperglycemia On 07/26/2022 patient steroid taper was continue with prednisone 10 mg to be continued through 08/02/2022 and then discontinued We will discontinue oral prednisone, treat hyperglycemia, and continue to follow. If patient becomes hypotensive will add another brief taper for potential AI If renal function is not improving with fluids and glucose control reconsult nephrology tomorrow Hypertension Continue hydralazine, aspirin, amlodipine Hypothyroidism Continue Synthroid DVT prophylaxis: SCDs Disposition: Medical surgical CODE STATUS: Full code Diet: N.p.o. pending BSG less than 250, then may advance to type II DM (2) Hypertension: (3) THA (acute kidney injury): (4) Hypothyroidism: (5) Hyperlipidemia: History of Present Illness Primary Care Provider: JOSE L Hare Sinai is a 81-year-old female with a past medical history of hypertension, diverticulitis, GERD, hypothyroidism, hyperlipidemia, interstitial nephritis suspected due to ciprofloxacin treatment of diverticulitis and subsequently on a tapering dose of steroids who presents to the ER with elevated blood sugar, polyuria, and polydipsia. On ER evaluation WBC 11.35, hemoglobin is normal VB.4 /39/27 Sodium 131, with admitting BSG of 510 Baseline creatinine in June appears to be less than 1, had been elevated as high as 3.9 in the setting of interstitial nephritis and had been downtrending with last creatinine of 1.24 on 07/25/2022. On admission creatinine is slightly up trended to 1.31 and 1.33 Anion gap is 14, bicarb normal at 25 Received 5 units of insulin in the ER and 2 L of saline Prior history of type II DM on metformin daily ? Hyperglycemia in the setting of steroid use and taper Per Pt: She reports July 03 was having lunch with friends in [facility]. She reports after having [employer] she felt very ill. She had set up an appointment to establish with a new PCP since DR. Braun was retiring, so kept that appointment and saw Jesse Hood. At that visit she threw up a little bit of bile and then had diarrhea x1 week. Thought was a viral bug, but continued to have diarrhea past 1 week. On followup was thought to have diverticulitis and was treated with ciprofloxacin/dicyclomine. Stool PCR was positive for Salmonella. Was seenin ER for concern of allergy, was found to have AIN. Converted to ertapenem, and then to rocephin which was ultimately well tolerated. Was discharged on a steroid taper with improvement in renal function. Today 08/01 she continued to feel fatigue. Her PCP started her with an energy theraptist who came to the home and evaluated Sinai. She was to walk for 5 minutes every two hours at home. She started doing that and was walking and felt a little tired but came in for a blood draw to check her kidney function and was found to have a BSG that was 600. History of borderline DM A1C previously <6.5%, today was found to be >9% on outpatient lab work. Had a script called in for metformin today but has never taken this before. At 4:45 this afternoon felt much more ill and started throwing up. Talked to nephrology office by phone and due to high bsg and vomiting was recommended to be seen in ER. At time of assessment no fever, chills, sweats. Was scheduled for an infusion tomorrow with nephrology, but pt does not not know of what +severe chills x1 day + unknown if had a fever no dysuria/polyuria Medical History: Reviewed Medications: Reviewed Surgical History: Reviewed Family history: Reviewed Allergies: Reviewed Social History:No tobacco/alcohol use Code Status: DNR/DNI Allergies Allergy/AdvReac Type Severity Reaction Status Date / Time Penicillins Allergy Severe FEET Verified 07/26/22 11:18 SWELLED HAD TO BE CARRIED shellfish derived Allergy Severe Gastrointestinal Unverified 07/26/22 11:18 Upset bacitracin Allergy Intermediate TOTAL BODY Verified 07/26/22 11:18 RASH/SWELLING benzocaine Allergy Intermediate Rash Verified 07/26/22 11:18 clindamycin Allergy Intermediate RASH Verified 07/26/22 11:18 cobalt Allergy Intermediate TOTAL BODY Verified 07/26/22 11:18 RASH/SWELLING ethylenediamine Allergy Intermediate Rash Verified 07/26/22 11:18 hydrocortisone Allergy Intermediate TOTAL BODY Verified 07/26/22 11:18 RASH/SWELLING neomycin Allergy Intermediate TOTAL BODY Verified 07/26/22 11:18 RASH/SWELLING oxycodone Allergy Intermediate Rash Verified 07/26/22 11:18 prednisolone Allergy Intermediate Rash Verified 07/26/22 11:18 tixocortol Allergy Intermediate TOTAL BODY Verified 07/26/22 11:18 RASH/SWELLING ciprofloxacin [From Cipro] Allergy Mild rash Verified 07/26/22 11:18 formaldehyde Allergy Unknown Unknown Verified 07/26/22 11:18 metronidazole AdvReac Unknown Gastrointestinal Verified 07/26/22 11:18 Upset Home Medications Medication Instructions Recorded Confirmed Type calcium carbonate 600 mg-vitamin 1 tab PO QAM 09/04/18 07/26/22 History D3 5 mcg (200 unit) tablet multivitamin (One-A-Day Essential 1 tab PO PM 09/04/18 07/26/22 History tablet) aspirin 81 mg tablet,delayed 81 mg PO QAM 03/24/19 07/26/22 History release (Aspir-) triamcinolone acetonide 0.1 % 1 applic topical BID PRN Itching 09/14/21 07/26/22 History topical cream levothyroxine 25 mcg tablet 25 mcg PO QAM #90 tabs 02/20/22 07/26/22 Rx rosuvastatin 10 mg tablet 10 mg PO HS #90 tabs 06/28/22 07/26/22 Rx hydralazine 25 mg tablet 25 mg PO Q8 1 month #90 tabs 07/18/22 07/26/22 Rx pantoprazole 40 mg tablet,delayed 40 mg PO BID 1 month #60 tabs 07/18/22 07/26/22 Rx release amlodipine 5 mg tablet (Norvasc) 10 mg PO QAM #90 tabs 07/25/22 07/26/22 Rx gabapentin 100 mg capsule 200 mg PO HS 07/25/22 07/26/22 History metformin 500 mg tablet 500 mg PO DAILY #30 tabs 08/01/22 Rx Past Med/Surg History Medical History Acute bronchitis resolved 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> then SBO> resolved Endometrial hyperplasia Endometrial thickening on ultrasound GERD (gastroesophageal reflux disease) Herpes zoster Hx of rotator cuff tear right Hyperlipidemia Hypothyroidism Pneumonia resolved Postmenopausal Postmenopausal bleeding Pre-diabetes Sinus bradycardia pt unaware > no cardiology Surgical History History of appendectomy History of delivery x2 History of cholecystectomy History of colonoscopy History of endometrial ablation History of hip replacement Right FREDDY (2007/[facility]): post-operatively patient reports diffuse rash/itching on post-op day#3, suspected to be contact dermatitis from the bedsheets per discharge summary (given benadryl)- patient's reports edger automatic Dr. Wilda Jaeger History of resection of small bowel History of tonsillectomy Family History Mother Depression Other Myocardial infarction Stroke Denies family history of Ovarian cancer Prostate cancer Diabetes Breast cancer Lung cancer Colorectal cancer Hypertension Social History Smoking Status: Never smoker Second Hand Exposure: No; Do You Dip or Chew Tobacco: No; Hx Alcohol Use: No Hx Substance Use: No Preferred Language: Portuguese Communication Ability: Effective Visual Impairment: Limited Hearing Ability: Normal Geriatrics Physician Required: No Beliefs That Will Affect Care: None marital status: Current Living Situation: Spouse current occupational status: employed current occupation: realtor How many Children do You have: 2 Feels Safe at Home: Yes Childhood Exposure to Second-Hand Smoke: Yes caffeine: Yes (drinks tea ) Dental Care, Regularly: Yes Physical Activity Frequency: 3-4 Times per Week Seatbelt Use: always Sunscreen Use: Yes (tries to ) Assistive Devices: None Review of Systems Review of Systems: All systems reviewed & are unremarkable except as noted in HPI & below Physical Exam Physical Exam: General: A&Ox3. NAD. Cooperative. HEENT: Atraumatic, normocephalic. Vision/hearing intact. Mucous membranes dry Pulm: CTAB A&P. -wheezes, -rales, -rhonchi. Symmetrical chest rise. No increased work of breathing. No respiratory distress. Cardiac: RRR, -mrg. Radial pulses intact and symmetrical. Abdominal: Nontender, nondistended, soft. BS present. Results & Data Results & Data Vital Signs (Past 12 Hours) Vital Signs Temp Pulse Resp BP Pulse Ox O2 Del Method 08/01/22 18:16 98 08/01/22 17:20 37.1 C 84 16 161/75 H 98 Room Air PG Care Time/CCT Total # of Minutes Spent Total Time Spent with Patient: Total time spent is greater than 50% in coordination of care (as documented) at patient's floor/unit and/or counseling patient: Coding Level of Care Code 93667 INT INP/OBS CARE 2/55MIN Diagnoses Hyperosmolar hyperglycemic state (HHS) E11.00 Hypertension I10 THA (acute kidney injury) N17.9 Hypothyroidism E03.9 Hypothyroidism type: acquired Hyperlipidemia E78.5 Hyperlipidemia type: unspecified (4) Hypothyroidism Hypothyroidism type: acquired Qualified Code(s): E03.9 - Hypothyroidism, unspecified (5) Hyperlipidemia Hyperlipidemia type: unspecified Qualified Code(s): E78.5 - Hyperlipidemia, unspecified
[2022-08-01] MEDS ORDERED: LACTATED RINGER'S 1,000 ML IV SCH (19:30)
[2022-08-01] MEDS: cefTRIAXone SODIUM 1,000 MG in DEXTROSE 5% AD-VAN 50 ML IV SCH (20:13)
[2022-08-01 20:15] LABS: Calcium 8.1 mg/dl (8.6-10.3); Creatinine Clr Calc Pharmacy 34.3 ml/min; Est GFR (African American) 57.2 ml/min; Est GFR (Non-African American) 49.3 ml/min; Potassium 3.5 mmol/L (3.5-5.1)
[2022-08-01] MEDS ORDERED: GABAPENTIN 100 MG CAP PO PRN (21:06)
[2022-08-01] MEDS ORDERED: CARBOHYDRATES FOR HYPOGLYCEMIA PO PRN (21:06)
[2022-08-01] MEDS ORDERED: GLUCAGON FOR INJ 1 MG VIAL SQ PRN (21:06)
[2022-08-01] MEDS ORDERED: ACETAMINOPHEN 325 MG TAB PO PRN (21:06)
[2022-08-01] MEDS ORDERED: DEXTROSE 50% 50 ML SYRINGE IV PRN (21:06)
[2022-08-01] MEDS ORDERED: GLUCOSE 40% GEL 15 GM TUBE PO PRN (21:06)
[2022-08-01] MEDS ORDERED: GLUCOSE 10 TAB/TUBE PO PRN (21:06)
[2022-08-01] MEDS: LANTUS PER UNIT CHARGE SQ SCH (22:38)
[2022-08-01] MEDS: INSULIN ASPART PER UNIT CHARGE SC SCH (22:38)
[2022-08-01] MEDS ORDERED: ONDANSETRON INJ 2 MG/ML 2 ML VIAL IV PRN (22:54)
[2022-08-01 23:44] LABS: BUN Creatinine Ratio 24.5 (10-20); Calcium 8.4 mg/dl (8.6-10.3); Creatinine Clr Calc Pharmacy 29.8 ml/min; Est GFR (African American) 55.3 ml/min; Est GFR (Non-African American) 47.7 ml/min
[2022-08-02] MEDS: ROSUVASTATIN CALCIUM 10 MG TAB PO SCH ×2 (00:09→20:14)
[2022-08-02] MEDS: PANTOprazole 40 MG TAB PO SCH ×3 (00:09→20:14)
[2022-08-02] MEDS: hydrALAZINE HCL 25 MG TAB PO SCH ×4 (00:09→20:13)
[2022-08-02] MEDS: LEVOTHYROXINE SODIUM 25 MCG TABLET PO SCH (05:44)
[2022-08-02 06:20] LABS: Appearance Urine Clear (Clear); Bacteria Urine Automated Negative (Negative); Bilirubin Urine Negative (Negative); Blood Urine Trace (Negative); Color Urine Yellow; Epithelial Cell Urine Auto >30 /lpf (0-5); Glucose Urine UA Negative (Negative); Ketones Urine Negative (Negative); Leukocyte Esterase Urine 1+ (Negative); Nitrite Urine Negative (Negative); Protein Urine 2+ (Negative); Urobilinogen Urine Negative (Negative); WBC Urine Automated >30 /hpf (0-5)
[2022-08-02] MEDS: ASPIRIN 81 MG ECTAB PO SCH (07:53)
[2022-08-02] MEDS: amLODIPine BESYLATE 5 MG TAB PO SCH (07:53)
[2022-08-02 08:48] LABS: Hematocrit (blood only) 28.8 % (37.0-47.0); Hemoglobin 9.8 g/dl (12.0-16.0); Mean Corpuscular Hemoglobin 29.7 pg (25.0-34.0); Mean Corpuscular Volume 87.3 fL (80.0-100.0); Mean Platelet Volume 9.8 fL (9.4-12.4); Platelet Count 223 K/uL (130-400); RDW Coefficient of Variation 13.6 % (11.5-14.5); RDW Standard Deviation 43.5 fL (36.4-46.3)
[2022-08-02] MEDS: INSULIN ASPART PER UNIT CHARGE SC SCH ×4 (09:01→20:13)
[2022-08-02] MEDS ORDERED: predniSONE 10 MG TABLET PO ONE (09:07)
[2022-08-02] MEDS: LANTUS PER UNIT CHARGE SQ SCH ×2 (09:09→20:12)
[2022-08-02 09:12] LABS: Basophils # (auto) 0.06 K/uL (0-0.2); Basophils % (auto) 0.4 %; Eosinophils # (auto) 0.33 K/uL (0-0.50); Eosinophils % (auto) 2.2 %; Immature Granulocytes # (auto) 0.16 K/uL (0.01-0.20); Immature Granulocytes % (auto) 1.1 %; Lymphocytes # (auto) 0.27 K/uL (1.2-3.4); Lymphocytes % (auto) 1.8 %; Monocytes # (auto) 0.54 K/uL (0.11-0.59); Monocytes % (auto) 3.7 %; Neutrophils # (auto) 13.34 K/uL (1.40-6.50); Neutrophils % (auto) 90.8 %
[2022-08-02 10:03] LABS: BUN Creatinine Ratio 19.8 (10-20); Creatinine Clr Calc Pharmacy 29.5 ml/min; Est GFR (African American) 54.7 ml/min; Est GFR (Non-African American) 47.2 ml/min; Potassium 3.4 mmol/L (3.5-5.1)
[2022-08-02] MEDS ORDERED: POTASSIUM CHLORIDE CRTAB 20 MEQ TABCR PO STA (12:32)
--- NOTE | 2022-08-02 14:20 | Hospitalist Progress Note ---
Date of Service August 02, 2022 Assessment & Plan (1) Hyperosmolar hyperglycemic state (HHS): Plan: Acute/stable - moderate risk Hyperglycemic hyperosmolar state, type II DM Patient with prior history of pre-DM not on antiglycemics Was prescribed metformin for outpatient blood work, only took 1 dose of this Presents with a BSG of 600 with clinical volume contraction. Improving following fluids, 1 dose of IV insulin given in ER pending 1 hour recheck Suspect patient has hyperglycemia induced by combination of recent steroids, and possible UTI (see below). Discharge antiglycemics pending response/control overnight. Reasonable to target dual therapy, would avoid SGLT2 given patient reporting history of UTI Patient rapidly improving, defer additional aggressive insulin due to risk of osmotic change - Placed on weight-based basal bolus, glucose checks AC/at bedtime Diet advanced to carb consistent and pharmacy consulted for glycemic management (2) UTI (urinary tract infection): Plan: Acute/stable - low risk - Uncertain of true UTI vs. asymptomatic bacteruria Patient with infected appearing UA and polyuria, but denies dysuria/burning Suspect this is likely asymptomatic bacteriuria with polyuria due to hyperglycemia, however given acute increase in BSG and mild leukocytosis, ordered daily Rocephin - Urine culture pending, would only require a total of 3 doses of Rocephin for uncomplicated UTI - One of the UAs was + for yeast, but will wait final culture. Repeat UA did not detect yeast. Defer Fluconazole at this time - CBC reviewed, mild leukocytosis persists at 14.70 but believe that this demargination due to steroids as opposed to true infection (3) THA (acute kidney injury): Plan: THA, history of recent AIN from Cipro Creatinine had gradually been improving most recently 1.24 as outpatient. Slight uptrend to 1.31 in the setting of volume depletion and hyperglycemia On 07/26/2022 patient steroid taper was continue with prednisone 10 mg to be continued through 08/02/2022 and then discontinued We will discontinue oral prednisone, treat hyperglycemia, and continue to follow. If patient becomes hypotensive will add another brief taper for potential AI THA has resolved and Prednisone stopped (4) Hypertension: Plan: Chronic/stable Continue hydralazine, aspirin, amlodipine (5) Hypothyroidism: Plan: Chronic/stable Continue Synthroid Plan Repeat labs ordered for tomorrow. Observe BSG off of prednisone and will determine appropriate plan for management of diabetes. Anticipate home tomorrow. Plan d/w Dr. Ashley. Admission and Anticipated Discharge Date Admission Date: August 01, 2022 Supervising Physician Co-Signing Physician Notes PA Supervision Note: I did not personally see or examine the patient. I verified all ramirez points and agree with DORIS Almendarez with the following exceptions and/or additions: none Subjective Patient seen on daily rounds this morning. She is resting in bed, offers no new complaints. She states that she did have two episodes yesterday of nausea/vomit ing and associated diarrhea. She denies fever/chills, cp, cough, dyspnea, or gu symptoms. Physical Exam Physical Exam: GENERAL: 81 yo well-developed, well-nourished elderly F. AAOx4. NAD. LUNGS: Clear to auscultation bilaterally w/o W/R/R. CARDIOVASCULAR: Regular rate and rhythm. ABDOMEN: Soft, non-tender and non-distended. BS normoactive x 4 quad. EXTREMITIES: No edema. Non-tender. Peripheral pulses +2/4. Results & Data Results & Data Vital Signs (Past 12 Hours) Vital Signs Temp Pulse Resp BP Pulse Ox O2 Del Method 08/02/22 07:41 37.3 C 82 16 143/63 H 92 Room Air 08/02/22 05:42 122/63 Laboratory Results 08/02/22 08:03 08/02/22 08:03 PG Care Time/CCT Total # of Minutes Spent Total Time Spent with Patient: Total time spent is greater than 50% in coordination of care (as documented) at patient's floor/unit and/or counseling patient: Coding Level of Care Code 74956 SUB INP/OBS CARE 2/35MIN Diagnoses Hyperosmolar hyperglycemic state (HHS) E11.00 UTI (urinary tract infection) N39.0 THA (acute kidney injury) N17.9 Hypertension I10 Hypothyroidism E03.9 Hypothyroidism type: acquired (5) Hypothyroidism Hypothyroidism type: acquired Qualified Code(s): E03.9 - Hypothyroidism, unspecified
[2022-08-02] MEDS: cefTRIAXone SODIUM 1,000 MG in DEXTROSE 5% AD-VAN 50 ML IV SCH (20:12)
[2022-08-03] MEDS: hydrALAZINE HCL 25 MG TAB PO SCH ×2 (05:56→13:34)
[2022-08-03] MEDS: LEVOTHYROXINE SODIUM 25 MCG TABLET PO SCH (05:57)
[2022-08-03 07:05] LABS: Basophils # (auto) 0.09 K/uL (0-0.2); Basophils % (auto) 0.9 %; Eosinophils # (auto) 0.52 K/uL (0-0.50); Eosinophils % (auto) 5.4 %; Hematocrit (blood only) 29.4 % (37.0-47.0); Hemoglobin 9.7 g/dl (12.0-16.0); Immature Granulocytes # (auto) 0.18 K/uL (0.01-0.20); Immature Granulocytes % (auto) 1.9 %; Lymphocytes # (auto) 0.83 K/uL (1.2-3.4); Lymphocytes % (auto) 8.6 %; Mean Corpuscular Hemoglobin 29.5 pg (25.0-34.0); Mean Corpuscular Volume 89.4 fL (80.0-100.0); Mean Platelet Volume 9.7 fL (9.4-12.4); Monocytes # (auto) 0.68 K/uL (0.11-0.59); Neutrophils # (auto) 7.38 K/uL (1.40-6.50); Neutrophils % (auto) 76.2 %; Platelet Count 212 K/uL (130-400); RDW Standard Deviation 45.4 fL (36.4-46.3); Red Blood Count 3.29 M/uL (4.20-5.40); White Blood Count 9.68 K/ul (4.8-10.8)
[2022-08-03 07:19] LABS: BUN Creatinine Ratio 13.5 (10-20); Creatinine Clr Calc Pharmacy 24.6 ml/min; Est GFR (Non-African American) 37.9 ml/min; Potassium 3.3 mmol/L (3.5-5.1)
[2022-08-03] MEDS: PANTOprazole 40 MG TAB PO SCH (08:18)
[2022-08-03] MEDS: ASPIRIN 81 MG ECTAB PO SCH (08:18)
[2022-08-03] MEDS: amLODIPine BESYLATE 5 MG TAB PO SCH (08:18)
[2022-08-03] MEDS: INSULIN ASPART PER UNIT CHARGE SC SCH ×2 (08:59→13:32)
[2022-08-03] MEDS: LANTUS PER UNIT CHARGE SQ SCH (08:59)
--- NOTE | 2022-08-03 12:33 | Discharge Summary ---
Date of Service August 03, 2022 Admission HPI Per Admitting Provider Sinai is a 81-year-old female with a past medical history of hypertension, diverticulitis, GERD, hypothyroidism, hyperlipidemia, interstitial nephritis suspected due to ciprofloxacin treatment of diverticulitis and subsequently on a tapering dose of steroids who presents to the ER with elevated blood sugar, polyuria, and polydipsia. On ER evaluation WBC 11.35, hemoglobin is normal VB.4 // Sodium 131, with admitting BSG of 510 Baseline creatinine in June appears to be less than 1, had been elevated as high as 3.9 in the setting of interstitial nephritis and had been downtrending with last creatinine of 1.24 on 07/25/2022. On admission creatinine is slightly up trended to 1.31 and 1.33 Anion gap is 14, bicarb normal at 25 Received 5 units of insulin in the ER and 2 L of saline Prior history of type II DM on metformin daily ? Hyperglycemia in the setting of steroid use and taper Per Pt: She reports July 03 was having lunch with friends in [facility]. She reports after having Revert she felt very ill. She had set up an appointment to establish with a new PCP since DR. Braun was retiring, so kept that appointment and saw Jesse Hood. At that visit she threw up a little bit of bile and then had diarrhea x1 week. Thought was a viral bug, but continued to have diarrhea past 1 week. On followup was thought to have diverticulitis and was treated with ciprofloxacin/dicyclomine. Stool PCR was positive for Salmonella. Was seenin ER for concern of allergy, was found to have AIN. Converted to ertapenem, and then to rocephin which was ultimately well tolerated. Was discharged on a steroid taper with improvement in renal function. Today 08/01 she continued to feel fatigue. Her PCP started her with an energy theraptist who came to the home and evaluated Sinai. She was to walk for 5 minutes every two hours at home. She started doing that and was walking and felt a little tired but came in for a blood draw to check her kidney function and was found to have a BSG that was 600. History of borderline DM A1C previously <6.5%, today was found to be >9% on outpatient lab work. Had a script called in for metformin today but has never taken this before. At 4:45 this afternoon felt much more ill and started throwing up. Talked to nephrology office by phone and due to high bsg and vomiting was recommended to be seen in ER. At time of assessment no fever, chills, sweats. Was scheduled for an infusion tomorrow with nephrology, but pt does not not know of what +severe chills x1 day + unknown if had a fever no dysuria/polyuria Medical History: Reviewed Medications: Reviewed Surgical History: Reviewed Family history: Reviewed Allergies: Reviewed Social History:No tobacco/alcohol use Code Status: DNR/DNI Admission Exam Per Admitting Provider General: A&Ox3. NAD. Cooperative. HEENT: Atraumatic, normocephalic. Vision/hearing intact. Mucous membranes dry Pulm: CTAB A&P. -wheezes, -rales, -rhonchi. Symmetrical chest rise. No increased work of breathing. No respiratory distress. Cardiac: RRR, -mrg. Radial pulses intact and symmetrical. Abdominal: Nontender, nondistended, soft. BS present. Principal Diagnosis Hyperosmolar hyperglycemic state (HHS) - Type II DM THA, history of recent AIN from Cipro Discharge Exam Constitutional WD/WN, vitals as above Neck trachea midline, no thyromegaly Respiratory normal respiratory effort, lungs clear to auscultation Cardiovascular RRR, no murmur, no edema Extremities: normal capillary refill; no calf tenderness and no edema Gastrointestinal (Abdomen) normal bowel sounds, soft, nontender, no hepatosplenomegaly Neurologic PERRL, EOMI, accommodation nl, no face palsy, no dysarthria Psychiatric A+Ox3, euthymic affect Discharge Data Allergies Allergy/AdvReac Type Severity Reaction Status Date / Time Penicillins Allergy Severe FEET Verified 07/26/22 11:18 SWELLED HAD TO BE CARRIED shellfish derived Allergy Severe Gastrointestinal Unverified 07/26/22 11:18 Upset bacitracin Allergy Intermediate TOTAL BODY Verified 07/26/22 11:18 RASH/SWELLING benzocaine Allergy Intermediate Rash Verified 07/26/22 11:18 clindamycin Allergy Intermediate RASH Verified 07/26/22 11:18 cobalt Allergy Intermediate TOTAL BODY Verified 07/26/22 11:18 RASH/SWELLING ethylenediamine Allergy Intermediate Rash Verified 07/26/22 11:18 hydrocortisone Allergy Intermediate TOTAL BODY Verified 07/26/22 11:18 RASH/SWELLING neomycin Allergy Intermediate TOTAL BODY Verified 07/26/22 11:18 RASH/SWELLING oxycodone Allergy Intermediate Rash Verified 07/26/22 11:18 prednisolone Allergy Intermediate Rash Verified 07/26/22 11:18 tixocortol Allergy Intermediate TOTAL BODY Verified 07/26/22 11:18 RASH/SWELLING ciprofloxacin [From Cipro] Allergy Mild rash Verified 07/26/22 11:18 formaldehyde Allergy Unknown Unknown Verified 07/26/22 11:18 metronidazole AdvReac Unknown Gastrointestinal Verified 07/26/22 11:18 Upset Consultations 08/01/22 18:23 ED Decision to Admit Stat Hospital Course (1) Hyperosmolar hyperglycemic state (HHS): Acute/stable - moderate risk Hyperglycemic hyperosmolar state, type II DM Patient with prior history of pre-DM not on antiglycemics Was prescribed metformin for outpatient blood work, only took 1 dose of this Presents with a BSG of 600 with clinical volume contraction. Improving following fluids, 1 dose of IV insulin given in ER Suspect patient has hyperglycemia induced by combination of recent steroids, and possible UTI (see below). Discharge antiglycemics pending response/control overnight. Patient rapidly improving, defer additional aggressive insulin due to risk of osmotic change - Metformin was discontinued secondary to creatine clearance<45 Cr today was 1.33 - Placed on weight-based basal bolus, glucose checks AC/at bedtime while inpatient. HgbA1C was 9.3 % was 6.2% 09/2021 Diet advanced to carb consistent and pharmacy consulted for glycemic management - rn diabetes educator Connie Powers also following and educated on glucometer and and dietary changes - Will discharge patient on Januvia 25mg daily and will have patient follow up with PCP in 1 week with repeat labs (2) UTI (urinary tract infection): Acute/stable - low risk - Uncertain of true UTI vs. asymptomatic bacteruria Patient with infected appearing UA and polyuria, but denies dysuria/burning Suspect this is likely asymptomatic bacteriuria with polyuria due to hyperglycemia, however given acute increase in BSG and mild leukocytosis, ordered daily Rocephin - Urine culture pending, would only require a total of 3 doses of Rocephin for uncomplicated UTI - One of the UAs was + for yeast, but will wait final culture. Repeat UA did not detect yeast. Defer Fluconazole at this time - CBC reviewed, Leukocytosis resolved now 9.6 (3) THA (acute kidney injury): THA, history of recent AIN from Cipro Creatinine had gradually been improving most recently 1.33 as outpatient. On 07/26/2022 patient steroid taper was continue with prednisone 10 mg to be continued through 08/02/2022 and then discontinued We will discontinue oral prednisone, treat hyperglycemia, and continue to follow. If patient becomes hypotensive will add another brief taper for potential AI THA has resolved and Prednisone stopped (4) Hypertension: Chronic/stable Continue hydralazine, aspirin, amlodipine - BP 132/62 (5) Hypothyroidism: Chronic/stable Continue Synthroid Plan Patient to be discharged to home today and have BMP repeated in 1 week with a follow up visit with PCP also in 1 week Discharged with a glucometer and rx to pharmacy for lancets and strips along with Januvia 25mg daily, may need increased at follow up visit with PCP. Total Time Total Time Spent Total Time Spent (In Minutes): 40 Discharge Plan Discharge Items Patient Disposition: Home - Self-Care Reason For Visit: HYPERGLYCEMIA Discharge Diagnosis: Hyperosmolar hyperglycemic state (HHS) - Type II DM THA, history of recent AIN from Cipro Condition on Discharge: Good Activity: Resume your previous activity Lifting: Gradually increase as tolerated Exercise/Sports: Gradually increase as tolerated Driving/Machine Use: Resume 1 day after discharge Weightbearing: Full weightbearing Non-emergency contact: Primary Care Provider Call non-emergency contact if: you have any medication questions and your symptoms worsen Follow-up/Referrals: Jesse Hood CRNP [Primary Care Provider] - 08/07/22 10:00 am Diet: Carb Consistent or DM2 Ambulatory Orders: Basic Metabolic Panel (Routine) Timeframe: 1 Week Location: Determined by Patient Ordered By: Elsa Cornejo Attending Provider Instructions: You will be discharged to home with a glucometer and should start by checking BG readings 1X per day as instructed and should have repeat blood work in 1 week with a follow up with your PCP also at that time. Continue to follow the diabetic diet recommendations as discussed with Connie [place] today. Also continue to stay active and exercise, call your outpatient therapy group [facility] to resume your visits. Also continue to get adequate po water intake and high fiber diet. will also be rx Januvia 25mg which is an oral medication for the diabetes to be taken once per day. This may need increased or changed when you have your follow up with your primary care doctor. Pending Studies at Discharge: No Stand-Alone Forms: [facility] Medications and DC Order Prescriptions: New Januvia 25 mg tablet 25 mg PO DAILY Qty: 30 3RF (DME) OneTouch Verio test strips Strip See Rx Instructions .Route Qty: 100 0RF Rx Instructions: As directed (DME) lancets [OneTouch Delica Lancets] 33 gauge misc See Rx Instructions .Route Qty: 100 0RF Rx Instructions: As directed Continued levothyroxine 25 mcg tablet 25 mcg PO QAM Qty: 90 2RF rosuvastatin 10 mg tablet 10 mg PO HS Qty: 90 3RF amlodipine [Norvasc] 5 mg tablet 10 mg PO QAM Qty: 90 0RF gabapentin 100 mg capsule 200 mg PO HS Rx Instructions: Per pt she takes one capsule at night for sleep (and sometimes anxiety) calcium carbonate-vitamin D3 600 mg(1,500mg) -200 unit tablet 1 tab PO QAM multivitamin [One-A-Day Essential] tablet 1 tab PO PM triamcinolone acetonide 0.1 % cream 1 applic topical BID PRN (Reason: Itching) aspirin [Aspir-81] 81 mg Tablet,Delayed Release (Dr/Ec) 81 mg PO QAM hydralazine 25 mg Tablet 25 mg PO Q8 30 Days Qty: 90 0RF Rx Instructions: per pt she may take more than once. pantoprazole 40 mg Tablet,Delayed Release (Dr/Ec) 40 mg PO BID 30 Days Qty: 60 0RF Rx Instructions: said she received this while in hospital. Discontinued metformin 500 mg tablet 500 mg PO DAILY Qty: 30 2RF Rx Instructions: says she was recommended this medication today. Says she might have side effects from this medication. Discharge Orders: Discharge Order (Routine); Ordered 08/03/22 Ordered By: Elsa Land/Other Patient Handouts: Diabetes: The Benefits of Exercise, Diabetes: Meal Planning Admission Data Admit Date/Time: 08/01/22 19:21 Attending Provider: Blake Lopez Admit Provider: Don Irene Primary Care Provider: Jesse Hood Other Providers: Don Irene Coding Level of Care Code 52592 INP/OBS DISCH >30 MIN Diagnoses Hyperosmolar hyperglycemic state (HHS) E11.00 UTI (urinary tract infection) N39.0 THA (acute kidney injury) N17.9 Hypertension I10 Hypothyroidism E03.9 Hypothyroidism type: acquired Time Spent (min) 40
== END 2022-08-03 14:26 | disposition home or self-care (01) ==
LOC: ED 17:15 → 3W 17:15 → SUATTDRO 19:21 → 3W 20:23